=== PATIENT | male | born 1990 | race Caucasian/White ===

== ENCOUNTER 2018-07-19 04:47 | Inpatient (IN) | END 2018-09-10 17:06 | DRG 870 ==

== ENCOUNTER 2018-09-23 12:16 | Inpatient (IN) | payer OTHER ==
[~2018-09-23] VITALS: Ht 167.6 cm; Wt 72.7 kg
[~2018-09-23 12:16] MED LIST: ACET650S25 PO; ASC500 PO; HYDR2TAB36 PO; LORA0.5T PO; MEGE400O4 GTB; MORP30TA3 PO; OXYC-431 PO; Pending Collagenase Order XX; VIT5OINT2 TOP; ZINC220C5 PO
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
[2018-09-23] MEDS ORDERED: HYDROmorphONE 0.5 MG/0.5 ML SYG IV STA ×2 (12:53→18:13)
[2018-09-23] MEDS ORDERED: LACTINEXG GTB (14:21)
[2018-09-23] MEDS ORDERED: FAMO-96 GTB (14:21)
[2018-09-23] MEDS ORDERED: ENOX40DI14 SC (14:21)
[2018-09-23] MEDS ORDERED: MEGE40TA GTB (14:22)
[2018-09-23] MEDS ORDERED: MIDO10TA GTB (14:22)
[2018-09-23] MEDS ORDERED: ONDA4TAB13 GTB (14:23)
[2018-09-23] MEDS ORDERED: LORA1TAB GTB (14:23)
[2018-09-23] MEDS ORDERED: PIPER-TAZO 3.375 GM IV (PMX) 100 ML IVPB ONE (15:30)
[2018-09-23] MEDS ORDERED: ASPIRIN 81 MG TAB PO ONE (15:30)
[2018-09-23] MEDS ORDERED: LEVOFLOXACIN 750MG/D5W (PMX) 150 ML IVPB ONE (18:00)
[2018-09-23] MEDS ORDERED: VANCOMYCIN 1 GM (PMX) 250 ML IVPB SCH (18:00)
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
[2018-09-23 19:48] VITALS: PULSE 96
[2018-09-23 20:00] VITALS: PULSE 85
[2018-09-23 20:15] VITALS: RESP 16
[2018-09-23 20:27] VITALS: BP 110/60; PULSE 74; RESP 19
[2018-09-23] MEDS: ALBUTEROL/IPRATROPIUM (NEB) 3 ML AMP HHN SCH (20:32)
[2018-09-23] MEDS: HYDROmorphONE 0.5 MG/0.5 ML SYG IV PRN (21:29)
[2018-09-23] MEDS: FAMOTIDINE 20 MG TAB GTB SCH (21:30)
[2018-09-23 22:00] VITALS: Ht 167.6 cm; Wt 72.7 kg
[2018-09-23 22:37] VITALS: RESP 21
[2018-09-23 23:43] VITALS: BP 119/70; PULSE 76; RESP 19
[2018-09-24] VITALS (20 sets, daily range): BP systolic 83–119; BP diastolic 46–68; PULSE 70–89; RESP 14–23
[2018-09-24] MEDS: HYDROmorphONE 0.5 MG/0.5 ML SYG IV PRN ×3 (01:25→09:35)
[2018-09-24] MEDS: HYDROCODONE/APAP (5/325) TAB PO PRN ×3 (07:46→18:46)
[2018-09-24] MEDS: ALBUTEROL/IPRATROPIUM (NEB) 3 ML AMP HHN SCH ×3 (08:00→19:48)
[2018-09-24] MEDS: LORAZEPAM 1 MG TAB GTB PRN ×2 (09:36→20:13)
[2018-09-24] MEDS: ENOXAPARIN 40 MG/0.4 ML SYG SC SCH (09:53)
[2018-09-24] MEDS ORDERED: VANCOMYCIN IV PER PHARMACY XX SCH (10:00)
[2018-09-24] MEDS ORDERED: VANCOMYCIN 1 GM 250 ML IVPB SCH (11:00)
[2018-09-24] MEDS ORDERED: HYDROmorphONE 1 MG/ML SYG ONE (13:34)
[2018-09-24] MEDS: CEFEPIME 1GM/50 ML (PMX) 50 ML IVPB SCH ×2 (13:36→20:13)
[2018-09-24] MEDS: HYDROmorphONE 1 MG/ML SYG IV PRN ×3 (13:37→21:48)
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
--- NOTE | 2018-09-24 17:07 | CONS ---
Date/Time of Note Date/Time of Note DATE: 09/24/18 TIME: 17:02 Consult Date/Type/Reason Admit Date Sep 23, 2018 at 18:14 Type of Consult Psych Reason for Consult Depression Subjective Patient is a 28-year-old male who is quadriplegic and trach/vent dependent, HIV and seizure, who is currently on the telemetry unit . On a face to face evaluation, patient reports feeling hopeless and helpless, complained of insomnia. He however denies suicidal ideation and contracted for safety. Explained risks and benefits of Remeron for him and patient agreed to take Remeron. Objective Patient Appearance: Appropriate dress, Well Groomed Mood or Affect: Depressed Thought Process: Intact Hallucination Type: None Delusion Description: Not Present Assessment/Plan Recommendations Remeron 50 mg at bedtime GENE KASPER NP Sep 24, 2018 17:07
[2018-09-24] MEDS: VANCOMYCIN 1 GM 250 ML IVPB SCH (17:34)
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
[2018-09-24] MEDS: FAMOTIDINE 20 MG TAB GTB SCH (20:13)
[2018-09-25] VITALS (23 sets, daily range): BP systolic 92–128; BP diastolic 52–69; PULSE 71–103; RESP 14–74
[2018-09-25] MEDS: HYDROCODONE/APAP (5/325) TAB PO PRN ×5 (00:10→20:02)
[2018-09-25] MEDS: VANCOMYCIN 1 GM 250 ML IVPB SCH ×3 (00:10→17:00)
[2018-09-25] MEDS: HYDROmorphONE 1 MG/ML SYG IV PRN ×6 (01:44→22:03)
[2018-09-25] MEDS: LORAZEPAM 1 MG TAB GTB PRN ×3 (02:23→21:23)
[2018-09-25] MEDS: ACETAMINOPHEN 325 MG TAB PO PRN ×2 (05:38→16:21)
[2018-09-25] MEDS: CEFEPIME 1GM/50 ML (PMX) 50 ML IVPB SCH ×2 (09:37→21:23)
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
[2018-09-25] MEDS: ENOXAPARIN 40 MG/0.4 ML SYG SC SCH (10:39)
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
[2018-09-25] MEDS ORDERED: ALTEPLASE (CATHFLO) 2 MG INJ CATHETER ONE (16:00)
[2018-09-25] MEDS: IPRATROPIUM (NEB) 0.5 MG/2.5 ML AMP INH SCH ×3 (16:00→20:52)
[2018-09-25] MEDS ORDERED: ALBUTEROL HFA 8 GM INHALER INH SCH (16:00)
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
[2018-09-25] MEDS ORDERED: LORAZEPAM 2 MG INJ IV ONE (16:30)
[2018-09-25] MEDS: ALBUTEROL HFA 8 GM INHALER INH SCH (20:00)
[2018-09-25] MEDS: FAMOTIDINE 20 MG TAB GTB SCH (21:23)
[2018-09-26] VITALS (21 sets, daily range): BP systolic 84–116; BP diastolic 47–60; PULSE 55–89; RESP 14–18
[2018-09-26] MEDS: VANCOMYCIN 1 GM 250 ML IVPB SCH ×3 (00:09→17:28)
[2018-09-26] MEDS: HYDROCODONE/APAP (5/325) TAB PO PRN ×6 (00:09→21:43)
[2018-09-26] MEDS: HYDROmorphONE 1 MG/ML SYG IV PRN ×6 (02:01→22:42)
[2018-09-26] MEDS: LORAZEPAM 1 MG TAB GTB PRN ×2 (09:19→19:38)
[2018-09-26] MEDS: CEFEPIME 1GM/50 ML (PMX) 50 ML IVPB SCH ×2 (09:20→20:18)
[2018-09-26] MEDS: ENOXAPARIN 40 MG/0.4 ML SYG SC SCH (09:26)
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
[2018-09-26] MEDS: ALBUTEROL HFA 8 GM INHALER INH SCH ×4 (09:39→22:55)
[2018-09-26] MEDS: ACETAMINOPHEN 325 MG TAB PO PRN (12:32)
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
[2018-09-26] MEDS: FAMOTIDINE 20 MG TAB GTB SCH (20:18)
[2018-09-27] VITALS (22 sets, daily range): BP systolic 101–131; BP diastolic 51–78; PULSE 65–96; RESP 14–22
[2018-09-27] MEDS: ACETAMINOPHEN 325 MG TAB PO PRN ×2 (00:31→13:13)
[2018-09-27] MEDS: VANCOMYCIN 1.25 GM in SOD CHLORIDE 0.9% 250 ML IVPB SCH ×3 (00:33→16:41)
[2018-09-27] MEDS: HYDROCODONE/APAP (5/325) TAB PO PRN ×5 (01:42→20:35)
[2018-09-27] MEDS: LORAZEPAM 1 MG TAB GTB PRN ×3 (01:48→22:36)
[2018-09-27] MEDS: HYDROmorphONE 1 MG/ML SYG IV PRN ×6 (02:53→22:35)
[2018-09-27] MEDS: IPRATROPIUM (NEB) 0.5 MG/2.5 ML AMP INH SCH ×5 (07:09→20:00)
[2018-09-27] MEDS: CEFEPIME 1GM/50 ML (PMX) 50 ML IVPB SCH ×2 (08:05→20:35)
[2018-09-27] MEDS: ENOXAPARIN 40 MG/0.4 ML SYG SC SCH (08:07)
[2018-09-27] MEDS: ALBUTEROL HFA 8 GM INHALER INH SCH ×3 (08:50→19:51)
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
[2018-09-27] MEDS: ONDANSETRON 4 MG INJ IV PRN (16:26)
[2018-09-27] MEDS: FAMOTIDINE 20 MG TAB GTB SCH (22:36)
[2018-09-28] VITALS (23 sets, daily range): BP systolic 89–116; BP diastolic 51–67; PULSE 73–111; RESP 14–24
[2018-09-28] MEDS: VANCOMYCIN 1.25 GM in SOD CHLORIDE 0.9% 250 ML IVPB SCH (00:07)
[2018-09-28] MEDS: IPRATROPIUM (NEB) 0.5 MG/2.5 ML AMP INH SCH ×4 (02:00→19:27)
[2018-09-28] MEDS: HYDROmorphONE 1 MG/ML SYG IV PRN ×6 (02:33→23:47)
[2018-09-28] MEDS: LORAZEPAM 1 MG TAB GTB PRN ×2 (04:11→23:51)
[2018-09-28] MEDS: HYDROCODONE/APAP (5/325) TAB PO PRN ×4 (04:11→17:23)
[2018-09-28] MEDS: ALBUTEROL HFA 8 GM INHALER INH PRN ×2 (04:28→23:20)
[2018-09-28] MEDS: CEFEPIME 1GM/50 ML (PMX) 50 ML IVPB SCH ×2 (08:43→23:40)
[2018-09-28] MEDS: ENOXAPARIN 40 MG/0.4 ML SYG SC SCH (08:55)
[2018-09-28] MEDS: ALBUTEROL HFA 8 GM INHALER INH SCH ×3 (09:04→19:26)
[2018-09-28] MEDS ORDERED: VANCOMYCIN 1 GM 250 ML IVPB SCH ×2 (10:00→11:00)
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
[2018-09-28] MEDS: ONDANSETRON 4 MG INJ IV PRN ×3 (10:54→18:43)
[2018-09-28] MEDS: VANCOMYCIN 1.5 GM in SOD CHLORIDE 0.9% 250 ML IVPB SCH (12:27)
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
[2018-09-28] MEDS: ACETAMINOPHEN 325 MG TAB PO PRN (23:41)
[2018-09-28] MEDS: FAMOTIDINE 20 MG TAB GTB SCH (23:41)
[2018-09-29] VITALS (25 sets, daily range): BP systolic 86–107; BP diastolic 45–56; PULSE 72–110; RESP 2–22
[2018-09-29] MEDS: LORAZEPAM 1 MG TAB GTB PRN ×2 (00:05→13:06)
[2018-09-29] MEDS: VANCOMYCIN 1.5 GM in SOD CHLORIDE 0.9% 250 ML IVPB SCH ×3 (00:06→23:31)
[2018-09-29] MEDS: IPRATROPIUM (NEB) 0.5 MG/2.5 ML AMP INH SCH ×3 (01:31→14:00)
[2018-09-29] MEDS: HYDROCODONE/APAP (5/325) TAB PO PRN ×4 (03:01→18:36)
[2018-09-29] MEDS: HYDROmorphONE 1 MG/ML SYG IV PRN ×6 (03:46→23:58)
[2018-09-29] MEDS: ALBUTEROL HFA 8 GM INHALER INH SCH ×5 (07:15→20:01)
[2018-09-29] MEDS: ONDANSETRON 4 MG INJ IV PRN ×3 (08:59→18:36)
[2018-09-29] MEDS: CEFEPIME 1GM/50 ML (PMX) 50 ML IVPB SCH ×2 (09:04→21:32)
[2018-09-29] MEDS: ENOXAPARIN 40 MG/0.4 ML SYG SC SCH (09:15)
[2018-09-29] MEDS ORDERED: SOD CHLORIDE 0.9% 250 ML IV* ONE (14:25)
--- NOTE | 2018-09-29 14:56 | CONS ---
Date/Time of Note Date/Time of Note DATE: 09/29/18 TIME: 14:55 Consult Date/Type/Reason Admit Date/Time Sep 23, 2018 at 18:14 Initial Consult Date 09/25/18 Type of Consultation: Pulmonary ICU Subjective Patient appears comfortable this morning no respiratory distress Objective Vital Signs Date Time Temp Pulse Resp B/P (MAP) Pulse Ox O2 Delivery O2 Flow Rate FiO2 09/29/18 13:00 76 16 100 30 09/29/18 11:04 98.7 100/51 (67) 09/28/18 07:27 Mechanical Ventilator Intake and Output 09/28/18 09/28/18 09/29/18 14:59 22:59 06:59 Intake Total 400 ml 500 ml Output Total 1100 ml 900 ml Balance -700 ml -400 ml Exam GENERAL: Thin young gentleman on mechanical ventilation via tracheostomy multiple tattoos VITAL SIGNS: per chart NECK: Supple. No JVD or lymphadenopathy. CARDIAC EXAM: S1, S2. No added sounds or murmurs. CHEST: clear bilaterally, No added sounds, rales or wheezes ABDOMEN: Soft, nontender. No guarding or rebound. EXTREMITIES: No cyanosis, clubbing or edema. NEUROLOGIC: Generalized weakness. No focal deficits. Results/Medications Result Diagram: 09/29/18 0533 09/29/18 0533 Results 24 hrs Laboratory Tests Test 09/29/18 05:33 White Blood Count 10.1 Red Blood Count 2.39 L Hemoglobin 7.1 L Hematocrit 22.5 L Mean Corpuscular Volume 94.1 Mean Corpuscular Hemoglobin 29.7 Mean Corpuscular Hemoglobin Concent 31.6 L Red Cell Distribution Width 18.3 H Platelet Count 508 H Mean Platelet Volume 8.8 Immature Granulocytes % 0.900 H Neutrophils % 74.9 Lymphocytes % 13.9 L Monocytes % 6.1 Eosinophils % 3.0 Basophils % 1.2 Nucleated Red Blood Cells % 0.0 Immature Granulocytes # 0.090 H Neutrophils # 7.5 Lymphocytes # 1.4 Monocytes # 0.6 Eosinophils # 0.3 Basophils # 0.1 Nucleated Red Blood Cells # 0.0 Sodium Level 139 Potassium Level 4.2 Chloride Level 104 Carbon Dioxide Level 30 Anion Gap 5 Blood Urea Nitrogen 15 Creatinine < 0.15 L Est Glomerular Filtrat Rate mL/min > 60 Glucose Level 102 Calcium Level 8.3 L Medications Current Medications Enoxaparin Sodium (Lovenox) 40 mg DAILY SC Last administered on 09/29/18 09: 15; Admin Dose 40 MG; Start 09/24/18 at 09:00 Famotidine (Pepcid) 20 mg QHS GTB Last administered on 09/28/18 23:41; Admin Dose 20 MG; Start 09/23/18 at 21:00 Lorazepam (Ativan) 2 mg Q6 PRN GTB ANXIETY Last administered on 09/29/18 13: 06; Admin Dose 2 MG; Start 09/23/18 at 20:00 Acetaminophen/ Hydrocodone Bitart ([place] (5/325)) 1 tab Q4H PRN PO MODERATE PAIN LEVEL 4-6 Last administered on 09/29/18 13:06; Admin Dose 1 TAB; Start 09/23/18 at 20:30 Acetaminophen (Tylenol Tab) 650 mg Q4H PRN PO MILD PAIN(1-3)OR ELEVATED TEMP Last administered on 09/28/18 23:41; Admin Dose 650 MG; Start 09/23/18 at 20: 30 Vancomycin HCl (Vanco Iv Per Pharmacy) VANCOMYCIN PER PHARMACY PER PROTOCOL XX ; Start 09/24/18 at 10:00 Cefepime HCl 50 ml @ 100 mls/hr Q12 IVPB Last administered on 09/29/18 09:04 ; Admin Dose 100 MLS/HR; Start 09/24/18 at 10:00 Hydromorphone HCl (Dilaudid) 1 mg Q4H PRN IV SEVERE PAIN LEVEL 7-10 Last administered on 09/29/18 11:46; Admin Dose 1 MG; Start 09/24/18 at 16:30 Ipratropium [place] (Atrovent 0.02% (Neb)) 0.5 mg Q6H RESP THERAPY INH ; Start 09/25/18 at 16:00 Albuterol (Ventolin Hfa) 4 puff Q6HWA RESP THERAPY INH Last administered on 12:50; Admin Dose 4 PUFF; Start 09/25/18 at 20:00 Ondansetron HCl (Zofran Inj) 4 mg Q4H PRN IV NAUSEA AND/OR VOMITING Last administered on 09/29/18 13:06; Admin Dose 4 MG; Start 09/27/18 at 14:00 Albuterol (Ventolin Hfa) 2 puff Q4H RESP THERAPY PRN INH SHORTNESS OF BREATH Last administered on 09/28/18at 23:20; Admin Dose 2 PUFF; Start 09/27/18 at 20: 30 Vancomycin HCl 1.5 gm/Sodium Chloride 250 ml @ 83.333 mls/ hr Q12H IVPB Last administered on 09/29/18at 11:44; Admin Dose 83.333 MLS/HR; Start 09/28/18 at 11:00 Miscellaneous Information (*Rx Drug Level Order Reminder*) VANCO TROUGH @ 2, 200 ON ... ONCE ONCE XX ; Start 09/29/18 at 22:00; Stop 09/29/18 at 22:01 Assessment/Plan Chief Complaint/Hosp Course Assessment 1. Vent dependent respiratory failure 2. Anemia likely of chronic disease no active GI bleeding 3. History of HIV + 4. Sacral osteomyelitis Plan 1. Continue wound care 2. Continue mechanical ventilation 3. Tube feeding as tolerated 4. Consider transfusion of packed red blood cells or iron replacement DC planning okay from pulmonary standpoint JENNIFER TERRELL MD, [facility] Sep 29, 2018 14:56
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
--- NOTE | 2018-09-29 21:21 | RADRPT ---
Vent Rate: 77 bpm RR Interval: 0 msec NV Interval: 0 msec QRS Duration: 84 msec QT Interval: 354 msec QTC Interval: 400 msec P-R-T [place]: 0 - 73 - 79 degrees Accelerated Junctional rhythm Abnormal ECG Electronically Signed By: Tip Arndt [id number]
[2018-09-29] MEDS: MIRTAZAPINE 15 MG TAB PO SCH (21:32)
[2018-09-29] MEDS: ASCORBIC ACID 500 MG TAB GTB SCH (21:32)
[2018-09-29] MEDS: FAMOTIDINE 20 MG TAB GTB SCH (21:32)
[2018-09-30] VITALS (23 sets, daily range): BP systolic 82–103; BP diastolic 46–56; PULSE 84–112; RESP 16–21
[2018-09-30] MEDS: IPRATROPIUM (NEB) 0.5 MG/2.5 ML AMP INH SCH (01:30)
[2018-09-30] MEDS: HYDROCODONE/APAP (5/325) TAB PO PRN ×5 (01:38→23:10)
[2018-09-30] MEDS: LORAZEPAM 1 MG TAB GTB PRN ×3 (01:38→14:15)
[2018-09-30] MEDS: ALBUTEROL HFA 8 GM INHALER INH SCH ×5 (01:46→20:02)
[2018-09-30] MEDS: ONDANSETRON 4 MG INJ IV PRN ×3 (04:15→18:40)
[2018-09-30] MEDS: HYDROmorphONE 1 MG/ML SYG IV PRN ×3 (04:24→12:30)
[2018-09-30] MEDS: MULTIVITAMINS 30 ML CUP GTB SCH (08:08)
[2018-09-30] MEDS: ZINC SULFATE 220 MG CAP NGT SCH (08:09)
[2018-09-30] MEDS: ASCORBIC ACID 500 MG TAB GTB SCH ×2 (08:09→21:01)
[2018-09-30] MEDS: CEFEPIME 1GM/50 ML (PMX) 50 ML IVPB SCH ×2 (08:09→21:02)
[2018-09-30] MEDS: ENOXAPARIN 40 MG/0.4 ML SYG SC SCH (08:17)
[2018-09-30] MEDS: VANCOMYCIN 1 GM 250 ML IVPB SCH ×2 (11:09→23:13)
--- NOTE | 2018-09-30 11:40 | CONS ---
Date/Time of Note Date/Time of Note DATE: 09/30/18 TIME: 11:38 Assessment/Plan Assessment/Plan Additional Assessment/Plan Ventilator setting; AC of volume 500, PEEP of 0, 35% FiO2. Assessment recommendations; 1. Patient with history of VDR F due to quadriplegia admitted for bilateral pneumonia with significant radiological improvement. 2. HIV positive. 3. History of recent sacral osteomyelitis. 4. Anemia. Consider discharge to jail off antibiotics. Continue other supportive measures. Consultation Date/Type/Reason Admit Date/Time Sep 23, 2018 at 18:14 Initial Consult Date 09/25/18 Type of Consultation: Pulmonary 24 HR Interval Summary Free Text/Dictation Patient's condition has remained stable. General exam; young male, on ventilator via tracheostomy, awake and alert. Currently in no distress. Exam/Review of Systems Vital Signs Vitals Vital Signs Date Temp Pulse Resp B/P (MAP) Pulse Ox O2 O2 Flow FiO2 Time Delivery Rate 09/30/18 98.4 108 20 95/55 (68) 92 11:18 09/30/18 30 09:30 09/28/18 Mechanical 07:27 Ventilator Intake and Output 09/29/18 09/29/18 09/30/18 1515:00 23:00 07:00 IntakeIntake Total 800 ml 150 ml OutputOutput Total 1300 ml 1400 ml BalanceBalance -500 ml -1250 ml Exam H ENT exam; supple neck, no JVD. No lymphadenopathy. Midline trachea. No thyromegaly. Patient has fair dentition. Tracheostomy placed. Insertion site is clean. No neck masses. Chest exam; clear to auscultation. S1-S2 audible, no murmurs. Regular rhythm. Abdomen exam; soft, no organomegaly. Bowel sounds audible. G-tube in place. Extremity exam; no edema. Patient has a flexion contractures. TRACK PRODUCTION ENGINEER exam; patient is awake alert responsive appropriately. Exhibiting stable quadriplegia. Results Result Diagram: 09/29/18 0533 09/29/1833 Results 24 hrs Laboratory Tests Test 09/29/18 22:05 Vancomycin Level Trough 18.4 Medications Medications Current Medications Enoxaparin Sodium (Lovenox) 40 mg DAILY SC Last administered on 09/30/18at 08:17; Admin Dose 40 MG; Start 09/24/18 at 09:00 Famotidine (Pepcid) 20 mg QHS GTB Last administered on 09/29/18 21:32; Admin Dose 20 MG; Start 09/23/18 at 21:00 Lorazepam (Ativan) 2 mg Q6 PRN GTB ANXIETY Last administered on 09/30/18 08:08; Admin Dose 2 MG; Start 09/23/18 at 20:00 Acetaminophen/ Hydrocodone Bitart ([place] (5/325)) 1 tab Q4H PRN PO MODERATE PAIN LEVEL 4-6 Last administered on 09/30/18 11:09; Admin Dose 1 TAB; Start 09/23/18 at 20:30 Acetaminophen (Tylenol Tab) 650 mg Q4H PRN PO MILD PAIN(1-3)OR ELEVATED TEMP Last administered on 09/28/18 23:41; Admin Dose 650 MG; Start 09/23/18 at 20:30 Vancomycin HCl (Vanco Iv Per Pharmacy) VANCOMYCIN PER PHARMACY PER PROTOCOL XX ; Start 09/24/18 at 10:00 Cefepime HCl 50 ml @ 100 mls/hr Q12 IVPB Last administered on 09/30/18 08:09; Admin Dose 100 MLS/HR; Start 09/24/18 at 10:00 Hydromorphone HCl (Dilaudid) 1 mg Q4H PRN IV SEVERE PAIN LEVEL 7-10 Last administered on 09/30/18 08:27; Admin Dose 1 MG; Start 09/24/18 at 16:30 Ipratropium [place] (Atrovent 0.02% (Neb)) 0.5 mg Q6H RESP THERAPY INH Last administered on 09/29/18 14:00; Admin Dose 0.5 MG; Start 09/25/18 at 16:00 Albuterol (Ventolin Hfa) 4 puff Q6HWA RESP THERAPY INH Last administered on 09/30/18 07:19; Admin Dose 4 PUFF; Start 09/25/18 at 20:00 Ondansetron HCl (Zofran Inj) 4 mg Q4H PRN IV NAUSEA AND/OR VOMITING Last administered on 09/30/18 09:58; Admin Dose 4 MG; Start 09/27/18 at 14:00 Albuterol (Ventolin Hfa) 2 puff Q4H RESP THERAPY PRN INH SHORTNESS OF BREATH Last administered on 09/28/18 23:20; Admin Dose 2 PUFF; Start 09/27/18 at 20:30 Ascorbic Acid (Vitamin C) 500 mg BID GTB Last administered on 09/30/18 08:09; Admin Dose 500 MG; Start 09/29/18 at 21:00; Stop 10/13/18 at 20:59 Zinc Sulfate (Zinc Sulfate) 220 mg DAILY NGT Last administered on 09/30/18 08:09; Admin Dose 220 MG; Start 09/30/18 at 09:00; Stop 10/09/18 at 08:59 Multivitamins (Multivitamin) 30 ml DAILY GTB Last administered on 09/30/18 08:08; Admin Dose 30 ML; Start 09/30/18 at 09:00 Mirtazapine (Remeron) 15 mg HS PO Last administered on 09/29/18at 21:32; Admin Dose 15 MG; Start 09/29/18 at 21:00 Vancomycin HCl 250 ml @ 125 mls/hr Q12H IVPB Last administered on 09/30/18at 11:09; Admin Dose 125 MLS/HR; Start 09/30/18 at 11:00 DELMY HARTMAN Sep 30, 2018 11:40
[2018-09-30] MEDS ORDERED: ALTEPLASE (CATHFLO) 2 MG INJ CATHETER ONE ×2 (12:30→14:00)
[2018-09-30] MEDS: ACETAMINOPHEN 325 MG TAB PO PRN (13:35)
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
[2018-09-30] MEDS ORDERED: SOD CHLORIDE 0.9% 250 ML IV ONE (16:00)
[2018-09-30] MEDS: HYDROmorphONE 0.5 MG/0.5 ML SYG IV PRN ×2 (17:04→21:05)
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
[2018-09-30] MEDS: MIRTAZAPINE 15 MG TAB PO SCH (21:01)
[2018-09-30] MEDS: FAMOTIDINE 20 MG TAB GTB SCH (21:05)
[2018-10-01] VITALS (22 sets, daily range): BP systolic 106–132; BP diastolic 60–83; PULSE 63–108; RESP 15–21
[2018-10-01] MEDS: HYDROmorphONE 0.5 MG/0.5 ML SYG IV PRN ×5 (00:58→20:33)
[2018-10-01] MEDS: ALBUTEROL HFA 8 GM INHALER INH PRN ×2 (01:22→16:59)
[2018-10-01] MEDS: ONDANSETRON 4 MG INJ IV PRN ×3 (04:32→17:56)
[2018-10-01] MEDS: LORAZEPAM 1 MG TAB GTB PRN (06:34)
[2018-10-01] MEDS: ALBUTEROL HFA 8 GM INHALER INH SCH ×3 (07:33→20:11)
[2018-10-01] MEDS: ASCORBIC ACID 500 MG TAB GTB SCH ×2 (08:17→20:32)
[2018-10-01] MEDS: ZINC SULFATE 220 MG CAP NGT SCH (08:17)
[2018-10-01] MEDS: MULTIVITAMINS 30 ML CUP GTB SCH (08:17)
[2018-10-01] MEDS: ENOXAPARIN 40 MG/0.4 ML SYG SC SCH (08:32)
[2018-10-01] MEDS: HYDROCODONE/APAP (5/325) TAB PO PRN ×3 (09:28→22:31)
[2018-10-01] MEDS: CEFEPIME 1GM/50 ML (PMX) 50 ML IVPB SCH ×2 (09:37→20:32)
[2018-10-01] MEDS: VANCOMYCIN 1 GM 250 ML IVPB SCH ×2 (10:12→22:31)
[2018-10-01] MEDS: ACETAMINOPHEN 325 MG TAB PO PRN (10:46)
--- NOTE | 2018-10-01 12:27 | CONS ---
Date/Time of Note Date/Time of Note DATE: 10/01/18 TIME: 12:25 Assessment/Plan Assessment/Plan Additional Assessment/Plan Ventilator setting; AC of 14, tidal volume 500, PEEP of 0, 35% FiO2. Assessment recommendations; 1. Patient with history of quadriplegia and VDR F admitted with bilateral pneumonia with significant clinical and radiological improvement. 2. HIV positive. 3. History of recent sacral osteomyelitis. 4. Chronic anemia. Continue current supportive care. Consider stopping antibiotics and discharging the patient back to snf. Consultation Date/Type/Reason Admit Date/Time Sep 23, 2018 at 18:14 Initial Consult Date 09/25/18 Type of Consultation: Pulmonary 24 HR Interval Summary Free Text/Dictation Patient's condition is stable. Remains awake and alert. Has remained hemody namically stable. General exam; young male, on ventilator via tracheostomy, currently in no distress. Exam/Review of Systems Vital Signs Vitals Vital Signs Date Temp Pulse Resp B/P (MAP) Pulse Ox O2 O2 Flow FiO2 Time Delivery Rate 10/01/18 98.6 77 18 106/60 100 Mechanical 11:55 (75) Ventilator 10/01/18 30 05:23 Intake and Output 09/30/18 09/30/18 10/01/18 1414:59 22:59 06:59 IntakeIntake Total 50 ml 910 ml 460 ml OutputOutput Total 350 ml 1100 ml BalanceBalance 50 ml 560 ml -640 ml Exam H ENT exam; supple neck, no JVD. No lymphadenopathy. Midline trachea. No thyromegaly. Patient has fair dentition. Tracheostomy in place. Chest exam; clear to auscultation. S1-S2 audible, no murmurs. Regular rhythm. Abdomen exam; soft, G-tube in place. No organomegaly. Scaphoid. Bowel sounds audible. Extremity exam; no peripheral edema or clubbing. Patient has a flexion contractures. SLASH TRIMMER exam; patient is awake alert responsive exhibiting stable quadriplegia. Results Result Diagram: 10/01/18 0500 10/01/18 0500 Results 24 hrs Laboratory Tests Test 10/01/18 05:00 White Blood Count 11.5 #H Red Blood Count 3.05 L Hemoglobin 9.1 L Hematocrit 28.9 L Mean Corpuscular Volume 94.8 Mean Corpuscular Hemoglobin 29.8 Mean Corpuscular Hemoglobin Concent 31.5 L Red Cell Distribution Width 18.4 H Platelet Count 442 H Mean Platelet Volume 8.5 Immature Granulocytes % 0.600 H Neutrophils % 79.2 H Lymphocytes % 10.2 L Monocytes % 5.6 Eosinophils % 3.5 Basophils % 0.9 Nucleated Red Blood Cells % 0.0 Immature Granulocytes # 0.070 H Neutrophils # 9.1 H Lymphocytes # 1.2 Monocytes # 0.7 Eosinophils # 0.4 Basophils # 0.1 Nucleated Red Blood Cells # 0.0 Sodium Level 143 Potassium Level 3.7 Chloride Level 108 Carbon Dioxide Level 30 Anion Gap 5 Blood Urea Nitrogen 13 Creatinine 0.18 L Est Glomerular Filtrat Rate mL/min > 60 Glucose Level 95 Calcium Level 8.6 Medications Medications Current Medications Enoxaparin Sodium (Lovenox) 40 mg DAILY SC Last administered on 10/01/18 08:32; Admin Dose 40 MG; Start 09/24/18 at 09:00 Famotidine (Pepcid) 20 mg QHS GTB Last administered on 09/30/18 21:05; Admin Dose 20 MG; Start 09/23/18 at 21:00 Lorazepam (Ativan) 2 mg Q6 PRN GTB ANXIETY Last administered on 10/01/18 06: 34; Admin Dose 2 MG; Start 09/23/18 at 20:00 Acetaminophen/ Hydrocodone Bitart ([place] (5/325)) 1 tab Q4H PRN PO MODERATE PAIN LEVEL 4-6 Last administered on 10/01/18 09:28; Admin Dose 1 TAB; Start 09/23/18 at 20:30 Acetaminophen (Tylenol Tab) 650 mg Q4H PRN PO MILD PAIN(1-3)OR ELEVATED TEMP [place] [facility] administered on 10/01/18 10:46; Admin Dose 650 MG; Start 09/23/18 at 20:30 Vancomycin HCl (Vanco Iv Per Pharmacy) VANCOMYCIN PER PHARMACY PER PROTOCOL XX ; Start 09/24/18 at 10:00 Cefepime HCl 50 ml @ 100 mls/hr Q12 IVPB Last administered on 10/01/18 09:37; Admin Dose 100 MLS/HR; Start 09/24/18 at 10:00 Albuterol (Ventolin Hfa) 4 puff Q6HWA RESP THERAPY INH Last administered on 10/01/18 07:33; Admin Dose 4 PUFF; Start 09/25/18 at 20:00 Ondansetron HCl (Zofran Inj) 4 mg Q4H PRN IV NAUSEA AND/OR VOMITING Last administered on 10/01/18 04:32; Admin Dose 4 MG; Start 09/27/18 at 14:00 Albuterol (Ventolin Hfa) 2 puff Q4H RESP THERAPY PRN INH SHORTNESS OF BREATH Last administered on 10/01/18 01:22; Admin Dose 2 PUFF; Start 09/27/18 at 20:30 Ascorbic Acid (Vitamin C) 500 mg BID GTB Last administered on 10/01/18 08:17; Admin Dose 500 MG; Start 09/29/18 at 21:00; Stop 10/13/18 at 20:59 Zinc Sulfate (Zinc Sulfate) 220 mg DAILY NGT Last administered on 10/01/18 08:17; Admin Dose 220 MG; Start 09/30/18 at 09:00; Stop 10/09/18 at 08:59 Multivitamins (Multivitamin) 30 ml DAILY GTB Last administered on 10/01/18 08:17; Admin Dose 30 ML; Start 09/30/18 at 09:00 Mirtazapine (Remeron) 15 mg HS PO Last administered on 09/30/18 21:01; Admin Dose 15 MG; Start 09/29/18 at 21:00 Vancomycin HCl 250 ml @ 125 mls/hr Q12H IVPB Last administered on 10/01/18 10:12; Admin Dose 125 MLS/HR; Start 09/30/18 at 11:00 Hydromorphone HCl (Dilaudid) 0.5 mg Q4H PRN IV SEVERE PAIN LEVEL 7-10 Last administered on 10/01/18 08:41; Admin Dose 0.5 MG; Start 09/30/18 at 16:30 EDLMY HARTMAN Oct 01, 2018 12:27
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
[2018-10-01] MEDS: MIRTAZAPINE 15 MG TAB PO SCH (20:32)
[2018-10-01] MEDS: FAMOTIDINE 20 MG TAB GTB SCH (20:32)
[2018-10-02] VITALS (23 sets, daily range): BP systolic 117–130; BP diastolic 60–92; PULSE 60–105; RESP 16–18
[2018-10-02] MEDS: HYDROmorphONE 0.5 MG/0.5 ML SYG IV PRN ×7 (00:34→21:42)
[2018-10-02] MEDS: ALBUTEROL HFA 8 GM INHALER INH PRN (01:30)
[2018-10-02] MEDS: ONDANSETRON 4 MG INJ IV PRN ×2 (03:40→18:03)
[2018-10-02] MEDS: CEFEPIME 1GM/50 ML (PMX) 50 ML IVPB SCH (08:30)
[2018-10-02] MEDS: ZINC SULFATE 220 MG CAP NGT SCH (08:31)
[2018-10-02] MEDS: MULTIVITAMINS 30 ML CUP GTB SCH (08:31)
[2018-10-02] MEDS: ENOXAPARIN 40 MG/0.4 ML SYG SC SCH (08:32)
[2018-10-02] MEDS: ASCORBIC ACID 500 MG TAB GTB SCH ×2 (08:32→21:39)
[2018-10-02] MEDS: ALBUTEROL HFA 8 GM INHALER INH SCH ×3 (08:40→19:43)
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
[2018-10-02] MEDS: VANCOMYCIN 1 GM 250 ML IVPB SCH (11:20)
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
[2018-10-02] MEDS: HYDROCODONE/APAP (5/325) TAB PO PRN ×2 (13:03→22:42)
[2018-10-02] MEDS: LORAZEPAM 1 MG TAB GTB PRN ×2 (14:34→22:37)
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
[2018-10-02] MEDS: FAMOTIDINE 20 MG TAB GTB SCH (21:39)
[2018-10-02] MEDS: MIRTAZAPINE 15 MG TAB PO SCH (21:39)
[2018-10-03] VITALS (23 sets, daily range): BP systolic 90–125; BP diastolic 54–91; PULSE 67–107; RESP 15–22
[2018-10-03] MEDS: ALBUTEROL HFA 8 GM INHALER INH PRN ×3 (01:54→17:39)
[2018-10-03] MEDS: HYDROmorphONE 0.5 MG/0.5 ML SYG IV PRN ×2 (02:06→06:11)
[2018-10-03] MEDS: ALBUTEROL HFA 8 GM INHALER INH SCH ×3 (08:05→19:34)
[2018-10-03] MEDS: HYDROCODONE/APAP (5/325) TAB PO PRN ×4 (08:46→21:48)
[2018-10-03] MEDS: ZINC SULFATE 220 MG CAP NGT SCH (08:46)
[2018-10-03] MEDS: MULTIVITAMINS 30 ML CUP GTB SCH (08:46)
[2018-10-03] MEDS: ASCORBIC ACID 500 MG TAB GTB SCH ×2 (08:47→21:14)
[2018-10-03] MEDS: ENOXAPARIN 40 MG/0.4 ML SYG SC SCH (08:48)
[2018-10-03] MEDS: HYDROmorphONE 2 MG TAB PO PRN ×3 (10:20→18:48)
--- NOTE | 2018-10-03 11:03 | CONS ---
Date/Time of Note Date/Time of Note DATE: 10/03/18 TIME: 11:02 Assessment/Plan Assessment/Plan Additional Assessment/Plan Ventilator setting; AC of 14, tidal volume 500, PEEP of 0, 35% FiO2. Assessment recommendations; 1. Patient with history of quadriplegia and VDR F admitted with bilateral pneumonia with marked interval clinical and radiological improvement. Off antibiotics. 2. History of being HIV positive. 3. Status post treatment of sacral osteomyelitis. Continue current supportive care. Consider discharge. Consultation Date/Type/Reason Admit Date/Time Sep 23, 2018 at 18:14 Initial Consult Date 09/25/18 Type of Consultation: Pulmonary 24 HR Interval Summary Free Text/Dictation Patient's condition is stable. Remains awake and alert. Has remained hemodynamically stable. General exam; young male, on ventilator via tracheostomy, awake and alert. Currently in no distress. Exam/Review of Systems Vital Signs Vitals Vital Signs Date Temp Pulse Resp B/P (MAP) Pulse Ox O2 O2 Flow FiO2 Time Delivery Rate 10/03/18 94 08:45 10/03/18 98.4 18 106/81 100 08:12 (89) 10/03/18 30 05:05 10/01/18 Mechanical 15:52 Ventilator Intake and Output 10/02/18 10/02/18 10/03/18 1515:00 23:00 07:00 IntakeIntake Total 50 ml 600 ml 450 ml OutputOutput Total 1800 ml 1650 ml BalanceBalance 50 ml -1200 ml -1200 ml Exam HEENT exam; supple neck, no JVD. No lymphadenopathy. Midline trachea. No thyromegaly. Tracheostomy in place. Insertion site is clean. Patient has fair dentition. Chest exam; clear to auscultation. S1-S2 audible, no murmurs. Regular rhythm. Abdomen exam; soft, nontender. Scaphoid. No organomegaly. G-tube in place. Bowel sounds audible. Extremity exam; no edema clubbing. Patient has a flexion contractures in all 4 extremities. SHROUDMAN exam; patient has stable quadriplegia. Results Result Diagram: 10/03/18 0546 10/03/18 0546 Results 24 hrs Laboratory Tests Test 10/03/18 05:46 White Blood Count 8.2 Red Blood Count 3.35 L Hemoglobin 9.8 L Hematocrit 31.4 L Mean Corpuscular Volume 93.7 Mean Corpuscular Hemoglobin 29.3 Mean Corpuscular Hemoglobin Concent 31.2 L Red Cell Distribution Width 17.8 H Platelet Count 473 H Mean Platelet Volume 8.7 Immature Granulocytes % 0.600 H Neutrophils % 73.7 Lymphocytes % 13.5 L Monocytes % 6.2 Eosinophils % 4.9 Basophils % 1.1 Nucleated Red Blood Cells % 0.0 Immature Granulocytes # 0.050 H Neutrophils # 6.1 Lymphocytes # 1.1 Monocytes # 0.5 Eosinophils # 0.4 Basophils # 0.1 Nucleated Red Blood Cells # 0.0 Sodium Level 141 Potassium Level 3.7 Chloride Level 103 Carbon Dioxide Level 30 Anion Gap 8 Blood Urea Nitrogen 13 Creatinine 0.18 L Est Glomerular Filtrat Rate mL/min > 60 Glucose Level 93 Calcium Level 9.0 Medications Medications Current Medications Enoxaparin Sodium (Lovenox) 40 mg DAILY SC Last administered on 10/03/18 08:48; Admin Dose 40 MG; Start 09/24/18 at 09:00 Famotidine (Pepcid) 20 mg QHS GTB Last administered on 10/02/18 21:39; Admin Dose 20 MG; Start 09/23/18 at 21:00 Lorazepam (Ativan) 2 mg Q6 PRN GTB ANXIETY Last administered on 10/02/18 22:37; Admin Dose 2 MG; Start 09/23/18 at 20:00 Acetaminophen/ Hydrocodone Bitart ([place] (5/325)) 1 tab Q4H PRN PO MODERATE PAIN LEVEL 4-6 Last administered on 10/03/18 08:46; Admin Dose 1 TAB; Start 09/23/18 at 20:30 Acetaminophen (Tylenol Tab) 650 mg Q4H PRN PO MILD PAIN(1-3)OR ELEVATED TEMP Last administered on 10/01/18 10:46; Admin Dose 650 MG; Start 09/23/18 at 20:30 Albuterol (Ventolin Hfa) 4 puff Q6HWA RESP THERAPY INH Last administered on 10/03/18 08:05; Admin Dose 4 PUFF; Start 09/25/18 at 20:00 Ondansetron HCl (Zofran Inj) 4 mg Q4H PRN IV NAUSEA AND/OR VOMITING Last administered on 10/02/18 18:03; Admin Dose 4 MG; Start 09/27/18 at 14:00 Albuterol (Ventolin Hfa) 2 puff Q4H RESP THERAPY PRN INH SHORTNESS OF BREATH Last administered on 10/03/18at 01:54; Admin Dose 2 PUFF; Start 09/27/18 at 20:30 Ascorbic Acid (Vitamin C) 500 mg BID GTB Last administered on 10/03/18at 08:47; Admin Dose 500 MG; Start 09/29/18 at 21:00; Stop 10/13/18 at 20:59 Zinc Sulfate (Zinc Sulfate) 220 mg DAILY NGT Last administered on 10/03/18at 08:46; Admin Dose 220 MG; Start 09/30/18 at 09:00; Stop 10/09/18 at 08:59 Multivitamins (Multivitamin) 30 ml DAILY GTB Last administered on 10/03/18at 08:46; Admin Dose 30 ML; Start 09/30/18 at 09:00 Mirtazapine (Remeron) 15 mg HS PO Last administered on 10/02/18at 21:39; Admin Dose 15 MG; Start 09/29/18 at 21:00 Hydromorphone HCl (Dilaudid) 2 mg Q4H PRN PO SEVERE PAIN LEVEL 7-10 Last administered on 10/03/18at 10:20; Admin Dose 2 MG; Start 10/03/18 at 09:30 DELMY HARTMAN Oct 03, 2018 11:03
[2018-10-03] MEDS: LORAZEPAM 1 MG TAB GTB PRN (12:45)
[2018-10-03] MEDS: ONDANSETRON 4 MG INJ IV PRN ×2 (12:45→18:53)
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
[2018-10-03] MEDS: FAMOTIDINE 20 MG TAB GTB SCH (21:14)
[2018-10-03] MEDS: MIRTAZAPINE 15 MG TAB PO SCH (21:14)
[2018-10-04] VITALS (24 sets, daily range): BP systolic 91–127; BP diastolic 52–76; PULSE 77–119; RESP 14–20
[2018-10-04] MEDS: HYDROmorphONE 2 MG TAB PO PRN ×2 (04:05→09:58)
[2018-10-04] MEDS: ALBUTEROL HFA 8 GM INHALER INH PRN ×2 (05:12→23:43)
[2018-10-04] MEDS: LORAZEPAM 1 MG TAB GTB PRN (06:55)
[2018-10-04] MEDS: ONDANSETRON 4 MG INJ IV PRN (06:56)
[2018-10-04] MEDS: ALBUTEROL HFA 8 GM INHALER INH SCH ×4 (07:14→20:54)
[2018-10-04] MEDS: ZINC SULFATE 220 MG CAP NGT SCH (09:58)
[2018-10-04] MEDS: MULTIVITAMINS 30 ML CUP GTB SCH (09:58)
[2018-10-04] MEDS: ASCORBIC ACID 500 MG TAB GTB SCH ×2 (09:58→21:20)
[2018-10-04] MEDS: ENOXAPARIN 40 MG/0.4 ML SYG SC SCH (10:10)
[2018-10-04] MEDS: HYDROCODONE/APAP (5/325) TAB PO PRN ×3 (11:50→21:19)
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
[2018-10-04] MEDS: HYDROmorphONE 0.5 MG/0.5 ML SYG IV PRN ×3 (14:05→22:07)
[2018-10-04] MEDS: FAMOTIDINE 20 MG TAB GTB SCH (21:19)
[2018-10-04] MEDS: MIRTAZAPINE 15 MG TAB PO SCH (21:19)
[2018-10-05] VITALS (24 sets, daily range): BP systolic 112–138; BP diastolic 70–84; PULSE 70–129; RESP 14–19
[2018-10-05] MEDS: ACETAMINOPHEN 325 MG TAB PO PRN (00:35)
[2018-10-05] MEDS: HYDROCODONE/APAP (5/325) TAB PO PRN ×5 (01:23→20:52)
[2018-10-05] MEDS: ALBUTEROL HFA 8 GM INHALER INH PRN ×2 (01:33→04:04)
[2018-10-05] MEDS: HYDROmorphONE 0.5 MG/0.5 ML SYG IV PRN ×6 (01:35→22:10)
[2018-10-05] MEDS: ONDANSETRON 4 MG INJ IV PRN ×3 (06:55→21:09)
[2018-10-05] MEDS: ALBUTEROL HFA 8 GM INHALER INH SCH ×3 (07:22→16:51)
[2018-10-05] MEDS: MULTIVITAMINS 30 ML CUP GTB SCH (08:40)
[2018-10-05] MEDS: ASCORBIC ACID 500 MG TAB GTB SCH ×2 (08:40→20:52)
[2018-10-05] MEDS: ZINC SULFATE 220 MG CAP NGT SCH (08:40)
[2018-10-05] MEDS: ENOXAPARIN 40 MG/0.4 ML SYG SC SCH (08:42)
--- NOTE | 2018-10-05 12:18 | CONS ---
Date/Time of Note Date/Time of Note DATE: 10/05/18 TIME: 12:18 Consult Date/Type/Reason Admit Date/Time Sep 23, 2018 at 18:14 Initial Consult Date 09/25/18 Type of Consultation: Pulmonary ICU Subjective Remains stable, no new events. Objective Vital Signs Date Temp Pulse Resp B/P (MAP) Pulse Ox O2 O2 Flow FiO2 Time Delivery Rate 10/05/18 99.6 79 18 138/82 99 11:34 (100) 10/05/18 35 11:20 10/01/18 Mechanical 15:52 Ventilator Intake and Output 10/04/18 10/04/18 10/05/18 1515:00 23:00 07:00 IntakeIntake Total 600 ml 550 ml OutputOutput Total 800 ml 1200 ml BalanceBalance -200 ml -650 ml Exam GENERAL: Thin gentleman on mechanical ventilation via tracheostomy VITAL SIGNS: per chart NECK: Supple. No JVD or lymphadenopathy. CARDIAC EXAM: S1, S2. No added sounds or murmurs. CHEST: clear bilaterally, No added sounds, rales or wheezes ABDOMEN: Soft, nontender. No guarding or rebound. EXTREMITIES: No cyanosis, clubbing or edema. NEUROLOGIC: Generalized weakness. No focal deficits. Results/Medications Result Diagram: 10/04/1852210/04/18 0525 Medications Current Medications Enoxaparin Sodium (Lovenox) 40 mg DAILY SC Last administered on 10/05/18at 08:42; Admin Dose 40 MG; Start 09/24/18 at 09:00 Famotidine (Pepcid) 20 mg QHS GTB Last administered on 10/04/18at 21:19; Admin Dose 20 MG; Start 09/23/18 at 21:00 Lorazepam (Ativan) 2 mg Q6 PRN GTB ANXIETY Last administered on 10/04/18at 06:55; Admin Dose 2 MG; Start 09/23/18 at 20:00 Acetaminophen/ Hydrocodone Bitart ([place] (5/325)) 1 tab Q4H PRN PO MODERATE PAIN LEVEL 4-6 Last administered on 10/05/18at 08:44; Admin Dose 1 TAB; Start 09/23/18 at 20:30 Acetaminophen (Tylenol Tab) 650 mg Q4H PRN PO MILD PAIN(1-3)OR ELEVATED TEMP Last administered on 10/05/18 00:35; Admin Dose 650 MG; Start 09/23/18 at 20:30 Albuterol (Ventolin Hfa) 4 puff Q6HWA RESP THERAPY INH Last administered on 10/05/18 07:22; Admin Dose 4 PUFF; Start 09/25/18 at 20:00 Ondansetron HCl (Zofran Inj) 4 mg Q4H PRN IV NAUSEA AND/OR VOMITING Last administered on 10/05/18 06:55; Admin Dose 4 MG; Start 09/27/18 at 14:00 Albuterol (Ventolin Hfa) 2 puff Q4H RESP THERAPY PRN INH SHORTNESS OF BREATH Last administered on 10/05/18 04:04; Admin Dose 2 PUFF; Start 09/27/18 at 20:30 Ascorbic Acid (Vitamin C) 500 mg BID GTB Last administered on 10/05/18 08:40; Admin Dose 500 MG; Start 09/29/18 at 21:00; Stop 10/13/18 at 20:59 Zinc Sulfate (Zinc Sulfate) 220 mg DAILY NGT Last administered on 10/05/18 08:40; Admin Dose 220 MG; Start 09/30/18 at 09:00; Stop 10/09/18 at 08:59 Multivitamins (Multivitamin) 30 ml DAILY GTB Last administered on 10/05/18 08:40; Admin Dose 30 ML; Start 09/30/18 at 09:00 Mirtazapine (Remeron) 15 mg HS PO Last administered on 10/04/18 21:19; Admin Dose 15 MG; Start 09/29/18 at 21:00 Hydromorphone HCl (Dilaudid) 0.5 mg Q4H PRN IV SEVERE PAIN LEVEL 7-10 Last administered on 10/05/18 09:46; Admin Dose 0.5 MG; Start 10/04/18 at 12:00 Assessment/Plan Chief Complaint/Hosp Course Assessment 1. Vent dependent respiratory failure 2. Anemia likely of chronic disease no active GI bleeding 3. History of HIV + 4. Sacral osteomyelitis Plan 1. Continue wound care 2. Continue mechanical ventilation 3. Tube feeding as tolerated DC planning okay from pulmonary standpoint JENNIFER TERRELL MD, [facility] Oct 05, 2018 12:18
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
[2018-10-05] MEDS: MIRTAZAPINE 15 MG TAB PO SCH (20:53)
[2018-10-05] MEDS: FAMOTIDINE 20 MG TAB GTB SCH (20:53)
[2018-10-05] MEDS: LORAZEPAM 1 MG TAB GTB PRN (21:09)
[2018-10-06] VITALS (24 sets, daily range): BP systolic 93–129; BP diastolic 50–69; PULSE 70–123; RESP 15–21
[2018-10-06] MEDS: HYDROmorphONE 0.5 MG/0.5 ML SYG IV PRN ×6 (02:31→23:37)
[2018-10-06] MEDS: LORAZEPAM 1 MG TAB GTB PRN ×3 (04:16→23:40)
[2018-10-06] MEDS: ACETAMINOPHEN 325 MG TAB PO PRN ×2 (04:31→23:41)
[2018-10-06] MEDS: HYDROCODONE/APAP (5/325) TAB PO PRN ×4 (04:42→21:36)
[2018-10-06] MEDS: ONDANSETRON 4 MG INJ IV PRN ×3 (04:42→21:33)
[2018-10-06] MEDS: ALBUTEROL HFA 8 GM INHALER INH SCH ×3 (08:00→20:00)
--- NOTE | 2018-10-06 09:22 | CONS ---
Date/Time of Note Date/Time of Note DATE: 10/06/18 TIME: 09:20 Assessment/Plan Assessment/Plan Additional Assessment/Plan Ventilator setting; AC of 18, tidal volume 500, PEEP of 5, 30% FiO2. Assessment and recommendations; 1. Patient with history of quadriplegia and VDR F admitted with bilateral pneumonia with marked overall clinical improvement. Off antibiotics now. 2. History of recent sacral osteomyelitis. Status post treatment. 3. HIV positive. Continue current supportive care. Patient awaiting discharge. Consultation Date/Type/Reason Admit Date/Time Sep 23, 2018 at 18:14 Initial Consult Date 09/25/18 Type of Consultation: Pulmonary 24 HR Interval Summary Free Text/Dictation Patient's condition is stable. Remains awake and alert. Has remained hemodynamically stable. General exam; young male, on ventilator via tracheostomy, currently in no distress. Exam/Review of Systems Vital Signs Vitals Vital Signs Date Temp Pulse Resp B/P (MAP) Pulse Ox O2 O2 Flow FiO2 Time Delivery Rate 10/06/18 108 18 100 30 09:14 10/06/18 98.4 93/50 (64) Trach 07:17 Collar Intake and Output 10/05/18 10/05/18 10/06/18 1515:00 23:00 07:00 IntakeIntake Total 240 ml 360 ml 400 ml OutputOutput Total 900 ml 1000 ml BalanceBalance 240 ml -540 ml -600 ml Exam H ENT exam; supple neck, no JVD. No lymphadenopathy. Midline trachea. No thyromegaly. Tracheostomy placed. Patient has fair dentition. Chest exam; diminished but clear breath sounds. No added sounds. S1-S2 audible , no murmurs. Regular rhythm. Abdomen exam; soft, no organomegaly. G-tube in place. Bowel sounds audible. Extremity exam; no peripheral edema. Patient has a flexion contractures. 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 Results Result Diagram: 10/06/18 0811 10/06/18 0811 Results 24 hrs Laboratory Tests Test 10/06/18 08:11 White Blood Count 13.1 #H Red Blood Count 2.98 L Hemoglobin 8.9 L Hematocrit 28.4 L Mean Corpuscular Volume 95.3 Mean Corpuscular Hemoglobin 29.9 Mean Corpuscular Hemoglobin Concent 31.3 L Red Cell Distribution Width 17.6 H Platelet Count 419 H Mean Platelet Volume 8.7 Immature Granulocytes % 0.600 H Neutrophils % 77.3 H Lymphocytes % 13.4 L Monocytes % 6.0 Eosinophils % 2.0 Basophils % 0.7 Nucleated Red Blood Cells % 0.0 Immature Granulocytes # 0.080 H Neutrophils # 10.1 H Lymphocytes # 1.8 Monocytes # 0.8 Eosinophils # 0.3 Basophils # 0.1 Nucleated Red Blood Cells # 0.0 Sodium Level 139 Potassium Level 3.9 Chloride Level 100 Carbon Dioxide Level 30 Anion Gap 9 Blood Urea Nitrogen 20 Creatinine 0.26 L Est Glomerular Filtrat Rate mL/min > 60 Glucose Level 84 Calcium Level 9.1 Medications Medications Current Medications Enoxaparin Sodium (Lovenox) 40 mg DAILY SC Last administered on 10/05/18 08:42; Admin Dose 40 MG; Start 09/24/18 at 09:00 Famotidine (Pepcid) 20 mg QHS GTB Last administered on 10/05/18 20:53; Admin Dose 20 MG; Start 09/23/18 at 21:00 Lorazepam (Ativan) 2 mg Q6 PRN GTB ANXIETY Last administered on 10/06/18 04:16; Admin Dose 2 MG; Start 09/23/18 at 20:00 Acetaminophen/ Hydrocodone Bitart ([place] (5/325)) 1 tab Q4H PRN PO MODERATE PAIN LEVEL 4-6 Last administered on 10/06/18 04:42; Admin Dose 1 TAB; Start 09/23/18 at 20:30 Acetaminophen (Tylenol Tab) 650 mg Q4H PRN PO MILD PAIN(1-3)OR ELEVATED TEMP Last administered on 10/06/18 04:31; Admin Dose 650 MG; Start 09/23/18 at 20:30 Albuterol (Ventolin Hfa) 4 puff Q6HWA RESP THERAPY INH Last administered on 10/06/18 08:00; Admin Dose 4 PUFF; Start 09/25/18 at 20:00 Ondansetron HCl (Zofran Inj) 4 mg Q4H PRN IV NAUSEA AND/OR VOMITING Last administered on 10/06/18 04:42; Admin Dose 4 MG; Start 09/27/18 at 14:00 Albuterol (Ventolin Hfa) 2 puff Q4H RESP THERAPY PRN INH SHORTNESS OF BREATH Last administered on 10/05/18 04:04; Admin Dose 2 PUFF; Start 09/27/18 at 20:30 Ascorbic Acid (Vitamin C) 500 mg BID GTB Last administered on 10/05/18 20:52; Admin Dose 500 MG; Start 09/29/18 at 21:00; Stop 10/13/18 at 20:59 Zinc Sulfate (Zinc Sulfate) 220 mg DAILY NGT Last administered on 10/05/18 08:40; Admin Dose 220 MG; Start 09/30/18 at 09:00; Stop 10/09/18 at 08:59 Multivitamins (Multivitamin) 30 ml DAILY GTB Last administered on 10/05/18 08:40; Admin Dose 30 ML; Start 09/30/18 at 09:00 Mirtazapine (Remeron) 15 mg HS PO Last administered on 10/05/18 20:53; Admin Dose 15 MG; Start 09/29/18 at 21:00 Hydromorphone HCl (Dilaudid) 0.5 mg Q4H PRN IV SEVERE PAIN LEVEL 7-10 Last administered on 10/06/18 06:51; Admin Dose 0.5 MG; Start 10/04/18 at 12:00 DELMY HARTMAN Oct 06, 2018 09:22
[2018-10-06] MEDS: MULTIVITAMINS 30 ML CUP GTB SCH (09:54)
[2018-10-06] MEDS: ZINC SULFATE 220 MG CAP NGT SCH (09:54)
[2018-10-06] MEDS: ASCORBIC ACID 500 MG TAB GTB SCH ×2 (09:54→21:35)
[2018-10-06] MEDS: ENOXAPARIN 40 MG/0.4 ML SYG SC SCH (09:55)
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
[2018-10-06] MEDS: FAMOTIDINE 20 MG TAB GTB SCH (21:36)
[2018-10-06] MEDS: MIRTAZAPINE 15 MG TAB PO SCH (21:37)
[2018-10-06] MEDS: ALBUTEROL HFA 8 GM INHALER INH PRN (23:52)
[2018-10-07] VITALS (23 sets, daily range): BP systolic 91–114; BP diastolic 59–73; PULSE 98–118; RESP 14–21
[2018-10-07] MEDS: ONDANSETRON 4 MG INJ IV PRN ×4 (03:40→20:10)
[2018-10-07] MEDS: HYDROmorphONE 0.5 MG/0.5 ML SYG IV PRN ×5 (03:40→20:12)
[2018-10-07] MEDS: LORAZEPAM 1 MG TAB GTB PRN (05:49)
[2018-10-07] MEDS: HYDROCODONE/APAP (5/325) TAB PO PRN ×2 (05:49→18:13)
[2018-10-07] MEDS: ALBUTEROL HFA 8 GM INHALER INH SCH ×3 (08:50→19:53)
[2018-10-07] MEDS: MULTIVITAMINS 30 ML CUP GTB SCH (09:23)
[2018-10-07] MEDS: ASCORBIC ACID 500 MG TAB GTB SCH ×2 (09:24→20:15)
[2018-10-07] MEDS: ZINC SULFATE 220 MG CAP NGT SCH (09:24)
--- NOTE | 2018-10-07 09:41 | CONS ---
Date/Time of Note Date/Time of Note DATE: 10/07/18 TIME: 09:38 Assessment/Plan Assessment/Plan Additional Assessment/Plan Ventilator setting; AC of 18, tidal volume 500, PEEP of 5, 30% FiO2. Assessment recommendations; next 1. Patient with history of quadriplegia and VDR F admitted for bilateral pneumonia with marked interval improvement. Off antibiotics. 2. HIV positive. 3. Recent history of sacral osteomyelitis, status post treatment. Continue current supportive care. Patient awaiting discharge. Consultation Date/Type/Reason Admit Date/Time Sep 23, 2018 at 18:14 Initial Consult Date 09/25/18 Type of Consultation: Pulmonary 24 HR Interval Summary Free Text/Dictation Patient's condition is stable. Remains awake and alert. Has remained hemodynamically stable. General exam; young male, on ventilator via tracheostomy, currently no distress. HEENT exam; supple neck, no JVD. Tracheostomy placed. Patient has fair dentition. Chest exam; clear to auscultation. S1-S2 audible, no murmurs. Regular rhythm. Abdomen exam; soft, G-tube in place. Bowel sounds audible. No organomegaly. Extremity exam; no peripheral edema. 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 Exam/Review of Systems Vital Signs Vitals Vital Signs Date Temp Pulse Resp B/P (MAP) Pulse Ox O2 O2 Flow FiO2 Time Delivery Rate 10/07/18 112 21 100 30 09:12 10/07/18 98.0 91/60 (70) 08:08 10/06/18 Trach 15:22 Collar Intake and Output 10/06/18 10/06/18 10/07/18 1414:59 22:59 06:59 IntakeIntake Total 960 ml 250 ml OutputOutput Total 500 ml 950 ml BalanceBalance 460 ml -700 ml Results Result Diagram: 10/07/18 0527 10/07/18 0527 Results 24 hrs Laboratory Tests Test 10/06/18 09:44 10/07/18 05:27 Lab Scanned Report BLOOD TRANSFUSION White Blood Count 11.3 H Red Blood Count 3.10 L Hemoglobin 9.2 L Hematocrit 29.4 L Mean Corpuscular Volume 94.8 Mean Corpuscular Hemoglobin 29.7 Mean Corpuscular Hemoglobin Concent 31.3 L Red Cell Distribution Width 17.2 H Platelet Count 439 H Mean Platelet Volume 8.9 Immature Granulocytes % 0.700 H Neutrophils % 73.1 Lymphocytes % 13.9 L Monocytes % 6.5 Eosinophils % 4.8 Basophils % 1.0 Nucleated Red Blood Cells % 0.0 Immature Granulocytes # 0.080 H Neutrophils # 8.3 H Lymphocytes # 1.6 Monocytes # 0.7 Eosinophils # 0.5 Basophils # 0.1 Nucleated Red Blood Cells # 0.0 Sodium Level 140 Potassium Level 3.5 Chloride Level 102 Carbon Dioxide Level 29 Anion Gap 9 Blood Urea Nitrogen 16 Creatinine 0.18 L Est Glomerular Filtrat Rate mL/min > 60 Glucose Level 90 Calcium Level 8.9 Medications Medications Current Medications Enoxaparin Sodium (Lovenox) 40 mg DAILY SC Last administered on 10/06/18 09:55; Admin Dose 40 MG; Start 09/24/18 at 09:00 Famotidine (Pepcid) 20 mg QHS GTB Last administered on 10/06/18 21:36; Admin Dose 20 MG; Start 09/23/18 at 21:00 Lorazepam (Ativan) 2 mg Q6 PRN GTB ANXIETY Last administered on 10/07/18 05:49; Admin Dose 2 MG; Start 09/23/18 at 20:00 Acetaminophen/ Hydrocodone Bitart ([place] (5/325)) 1 tab Q4H PRN PO MODERATE PAIN LEVEL 4-6 Last administered on 10/07/18 05:49; Admin Dose 1 TAB; Start 09/23/18 at 20:30 Acetaminophen (Tylenol Tab) 650 mg Q4H PRN PO MILD PAIN(1-3)OR ELEVATED TEMP Last administered on 10/06/18 23:41; Admin Dose 650 MG; Start 09/23/18 at 20:30 Albuterol (Ventolin Hfa) 4 puff Q6HWA RESP THERAPY INH Last administered on 10/07/18 08:50; Admin Dose 4 PUFF; Start 09/25/18 at 20:00 Ondansetron HCl (Zofran Inj) 4 mg Q4H PRN IV NAUSEA AND/OR VOMITING Last administered on 10/07/18 09:01; Admin Dose 4 MG; Start 09/27/18 at 14:00 Albuterol (Ventolin Hfa) 2 puff Q4H RESP THERAPY PRN INH SHORTNESS OF BREATH Last administered on 10/06/18 23:52; Admin Dose 2 PUFF; Start 09/27/18 at 20:30 Ascorbic Acid (Vitamin C) 500 mg BID GTB Last administered on 10/06/18 21:35; Admin Dose 500 MG; Start 09/29/18 at 21:00; Stop 10/13/18 at 20:59 Zinc Sulfate (Zinc Sulfate) 220 mg DAILY NGT Last administered on 10/06/18 09:54; Admin Dose 220 MG; Start 09/30/18 at 09:00; Stop 10/09/18 at 08:59 Multivitamins (Multivitamin) 30 ml DAILY GTB Last administered on 10/06/18 09:54; Admin Dose 30 ML; Start 09/30/18 at 09:00 Mirtazapine (Remeron) 15 mg HS PO Last administered on 10/06/18at 21:37; Admin D ose 15 MG; Start 09/29/18 at 21:00 Hydromorphone HCl (Dilaudid) 0.5 mg Q4H PRN IV SEVERE PAIN LEVEL 7-10 Last administered on 10/07/18at 07:58; Admin Dose 0.5 MG; Start 10/04/18 at 12:00 Docusate Sodium (Colace Liquid Cup) 100 mg BID PRN GTB CONSTIPATION; Start 10/07/18 at 03:30 DELMY HARTMAN Oct 07, 2018 09:41
[2018-10-07] MEDS: ENOXAPARIN 40 MG/0.4 ML SYG SC SCH (10:00)
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
[2018-10-07] MEDS: ACETAMINOPHEN 325 MG TAB PO PRN (20:14)
[2018-10-07] MEDS: FAMOTIDINE 20 MG TAB GTB SCH (20:14)
[2018-10-07] MEDS: MIRTAZAPINE 15 MG TAB PO SCH (20:15)
[2018-10-08] VITALS (23 sets, daily range): BP systolic 106–134; BP diastolic 62–85; PULSE 80–118; RESP 14–20
[2018-10-08] MEDS: ACETAMINOPHEN 325 MG TAB PO PRN (00:15)
[2018-10-08] MEDS: HYDROmorphONE 0.5 MG/0.5 ML SYG IV PRN ×6 (00:15→20:48)
[2018-10-08] MEDS: HYDROCODONE/APAP (5/325) TAB PO PRN ×4 (03:10→20:10)
[2018-10-08] MEDS: LORAZEPAM 1 MG TAB GTB PRN ×3 (03:11→22:06)
[2018-10-08] MEDS: ONDANSETRON 4 MG INJ IV PRN ×4 (04:26→22:06)
[2018-10-08] MEDS: ALBUTEROL HFA 8 GM INHALER INH SCH ×3 (07:38→19:42)
[2018-10-08] MEDS: ASCORBIC ACID 500 MG TAB GTB SCH ×2 (08:52→20:09)
[2018-10-08] MEDS: MULTIVITAMINS 30 ML CUP GTB SCH (08:52)
[2018-10-08] MEDS: ZINC SULFATE 220 MG CAP NGT SCH (08:52)
[2018-10-08] MEDS: ENOXAPARIN 40 MG/0.4 ML SYG SC SCH (08:59)
--- NOTE | 2018-10-08 10:08 | CONS ---
Date/Time of Note Date/Time of Note DATE: 10/08/18 TIME: 10:06 Consultation Date/Type/Reason Admit Date/Time Sep 23, 2018 at 18:14 Initial Consult Date 09/25/18 Type of Consultation: Pulmonary 24 HR Interval Summary Free Text/Dictation Patient's condition is stable. Has remained hemodynamically stable. General exam; young male, on ventilator via tracheostomy, currently in no distress. H ENT exam; supple neck, tracheostomy in place. Patient has fair dentition. No neck masses. Chest exam; clear to auscultation. S1-S2 audible, no murmurs. Regular rhythm. Abdomen exam; soft, nondistended. No organomegaly. Bowel sounds audible. G- tube in place. Extremity exam; no edema clubbing. [employer] exam; patient has stable quadriplegia. Ventilator setting; AC of 18, tidal volume 500, PEEP of 5, 30% FiO2. Assessment recommendations; 1. Patient with history of HIV and VDR F and quadriplegia admitted for bilateral pneumonia with marked interval improvement. Off antibiotics. 2. Recent history of sacral osteomyelitis. Status post treatment. Continue current supportive care. Patient awaiting discharge. Exam/Review of Systems Vital Signs Vitals Vital Signs Date Temp Pulse Resp B/P (MAP) Pulse Ox O2 O2 Flow FiO2 Time Delivery Rate 10/08/18 102 09:22 10/08/18 98.5 20 117/66 95 08:00 (83) 10/08/18 30 05:27 10/07/18 Mechanical 20:05 Ventilator Intake and Output 10/07/18 10/07/18 10/08/18 1414:59 22:59 06:59 IntakeIntake Total 650 ml OutputOutput Total 700 ml BalanceBalance -50 ml Medications Medications Current Medications Enoxaparin Sodium (Lovenox) 40 mg DAILY SC Last administered on 10/08/18at 08:59; Admin Dose 40 MG; Start 09/24/18 at 09:00 Famotidine (Pepcid) 20 mg QHS GTB Last administered on 10/07/18at 20:14; Admin Dose 20 MG; Start 09/23/18 at 21:00 Lorazepam (Ativan) 2 mg Q6 PRN GTB ANXIETY Last administered on 10/08/18at 03:11; Admin Dose 1 MG; Start 09/23/18 at 20:00 Acetaminophen/ Hydrocodone Bitart ([place] (5/325)) 1 tab Q4H PRN PO MODERATE PAIN LEVEL 4-6 Last administered on 10/08/18 03:10; Admin Dose 1 TAB; Start 09/23/18 at 20:30 Acetaminophen (Tylenol Tab) 650 mg Q4H PRN PO MILD PAIN(1-3)OR ELEVATED TEMP Last administered on 10/08/18 00:15; Admin Dose 650 MG; Start 09/23/18 at 20: 30 Albuterol (Ventolin Hfa) 4 puff Q6HWA RESP THERAPY INH Last administered on 10/08/18 07:38; Admin Dose 4 PUFF; Start 09/25/18 at 20:00 Ondansetron HCl (Zofran Inj) 4 mg Q4H PRN IV NAUSEA AND/OR VOMITING Last administered on 10/08/18 08:54; Admin Dose 4 MG; Start 09/27/18 at 14:00 Albuterol (Ventolin Hfa) 2 puff Q4H RESP THERAPY PRN INH SHORTNESS OF BREATH Last administered on 10/06/18 23:52; Admin Dose 2 PUFF; Start 09/27/18 at 20:30 Ascorbic Acid (Vitamin C) 500 mg BID GTB Last administered on 10/08/18 08:52; Admin Dose 500 MG; Start 09/29/18 at 21:00; Stop 10/13/18 at 20:59 Zinc Sulfate (Zinc Sulfate) 220 mg DAILY NGT Last administered on 10/08/18 08:52; Admin Dose 220 MG; Start 09/30/18 at 09:00; Stop 10/09/18 at 08:59 Multivitamins (Multivitamin) 30 ml DAILY GTB Last administered on 10/08/18 08:52; Admin Dose 30 ML; Start 09/30/18 at 09:00 Mirtazapine (Remeron) 15 mg HS PO Last administered on 10/07/18 20:15; Admin Dose 15 MG; Start 09/29/18 at 21:00 Hydromorphone HCl (Dilaudid) 0.5 mg Q4H PRN IV SEVERE PAIN LEVEL 7-10 Last administered on 10/08/18 08:26; Admin Dose 0.5 MG; Start 10/04/18 at 12:00 Docusate Sodium (Colace Liquid Cup) 100 mg BID PRN GTB CONSTIPATION; Start 10/07/18 at 03:30 DELMY HARTMAN Oct 08, 2018 10:07
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
[2018-10-08] MEDS ORDERED: VANCOMYCIN IV PER PHARMACY XX SCH (13:00)
[2018-10-08] MEDS: CEFEPIME 1GM/50 ML (PMX) 50 ML IVPB SCH ×2 (14:35→22:06)
[2018-10-08] MEDS: ALBUTEROL HFA 8 GM INHALER INH PRN (15:25)
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
[2018-10-08] MEDS ORDERED: VANCOMYCIN 1.5 GM in SOD CHLORIDE 0.9% 250 ML IVPB SCH (16:00)
[2018-10-08] MEDS: FAMOTIDINE 20 MG TAB GTB SCH (20:09)
[2018-10-08] MEDS: MIRTAZAPINE 15 MG TAB PO SCH (20:09)
[2018-10-08] MEDS: VANCOMYCIN 1 GM 250 ML IVPB SCH (23:51)
[2018-10-09] VITALS (24 sets, daily range): BP systolic 95–129; BP diastolic 54–80; PULSE 63–108; RESP 12–20
[2018-10-09] MEDS: HYDROmorphONE 0.5 MG/0.5 ML SYG IV PRN ×6 (00:46→21:49)
[2018-10-09] MEDS: HYDROCODONE/APAP (5/325) TAB PO PRN ×4 (01:48→20:26)
[2018-10-09] MEDS: CEFEPIME 1GM/50 ML (PMX) 50 ML IVPB SCH ×3 (05:46→21:50)
[2018-10-09] MEDS: ALBUTEROL HFA 8 GM INHALER INH SCH ×3 (07:35→13:46)
[2018-10-09] MEDS: DOCUSATE SODIUM 10 MG/ML (10ML CUP) GTB PRN (08:31)
[2018-10-09] MEDS: VANCOMYCIN 1 GM 250 ML IVPB SCH (08:31)
[2018-10-09] MEDS: MULTIVITAMINS 30 ML CUP GTB SCH (08:31)
[2018-10-09] MEDS: ONDANSETRON 4 MG INJ IV PRN ×2 (08:32→12:27)
[2018-10-09] MEDS: LORAZEPAM 1 MG TAB GTB PRN ×2 (08:32→14:08)
[2018-10-09] MEDS: ASCORBIC ACID 500 MG TAB GTB SCH ×2 (08:32→20:25)
[2018-10-09] MEDS: ENOXAPARIN 40 MG/0.4 ML SYG SC SCH (08:48)
[2018-10-09] MEDS ORDERED: POTASSIUM CHLORIDE 20 MEQ POWDER FOR ORAL SOLN GTB ONE (10:30)
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
[2018-10-09] MEDS: VANCOMYCIN 750 MG in SOD CHLORIDE 0.9% 150 ML IVPB SCH (18:19)
[2018-10-09] MEDS: FAMOTIDINE 20 MG TAB GTB SCH (20:25)
[2018-10-09] MEDS: MIRTAZAPINE 15 MG TAB PO SCH (20:25)
[2018-10-10] VITALS (26 sets, daily range): BP systolic 103–135; BP diastolic 57–80; PULSE 71–112; RESP 16–24
[2018-10-10] MEDS: VANCOMYCIN 750 MG in SOD CHLORIDE 0.9% 150 ML IVPB SCH ×3 (02:25→18:55)
[2018-10-10] MEDS: HYDROmorphONE 0.5 MG/0.5 ML SYG IV PRN ×5 (03:40→21:34)
[2018-10-10] MEDS: CEFEPIME 1GM/50 ML (PMX) 50 ML IVPB SCH ×3 (05:01→21:33)
[2018-10-10] MEDS: ALBUTEROL HFA 8 GM INHALER INH PRN ×2 (05:35→19:59)
[2018-10-10] MEDS: ALBUTEROL HFA 8 GM INHALER INH SCH ×3 (07:29→13:04)
[2018-10-10] MEDS: MULTIVITAMINS 30 ML CUP GTB SCH (08:15)
[2018-10-10] MEDS: ASCORBIC ACID 500 MG TAB GTB SCH ×2 (08:15→20:49)
[2018-10-10] MEDS: LORAZEPAM 1 MG TAB GTB PRN ×2 (08:15→15:42)
[2018-10-10] MEDS: DOCUSATE SODIUM 10 MG/ML (10ML CUP) GTB PRN (08:15)
[2018-10-10] MEDS: ONDANSETRON 4 MG INJ IV PRN ×2 (08:17→12:44)
[2018-10-10] MEDS: ENOXAPARIN 40 MG/0.4 ML SYG SC SCH (08:29)
[2018-10-10] MEDS: HYDROCODONE/APAP (5/325) TAB PO PRN ×3 (10:05→20:49)
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
[2018-10-10] MEDS: MIRTAZAPINE 15 MG TAB PO SCH (20:49)
[2018-10-10] MEDS: FAMOTIDINE 20 MG TAB GTB SCH (20:49)
[2018-10-11] VITALS (23 sets, daily range): BP systolic 88–108; BP diastolic 50–63; PULSE 82–114; RESP 12–22
[2018-10-11] MEDS: HYDROmorphONE 0.5 MG/0.5 ML SYG IV PRN ×6 (01:44→22:34)
[2018-10-11] MEDS: VANCOMYCIN 750 MG in SOD CHLORIDE 0.9% 150 ML IVPB SCH ×3 (02:13→17:35)
[2018-10-11] MEDS: ALBUTEROL HFA 8 GM INHALER INH PRN (03:29)
[2018-10-11] MEDS: HYDROCODONE/APAP (5/325) TAB PO PRN ×6 (04:39→21:34)
[2018-10-11] MEDS: LORAZEPAM 1 MG TAB GTB PRN ×3 (04:39→17:34)
[2018-10-11] MEDS: ONDANSETRON 4 MG INJ IV PRN ×2 (06:07→13:40)
[2018-10-11] MEDS: CEFEPIME 1GM/50 ML (PMX) 50 ML IVPB SCH ×3 (06:08→21:30)
[2018-10-11] MEDS ORDERED: POTASSIUM CHLORIDE 20 MEQ POWDER FOR ORAL SOLN GTB ONE ×2 (08:00→12:00)
[2018-10-11] MEDS: ALBUTEROL HFA 8 GM INHALER INH SCH ×3 (08:01→19:43)
[2018-10-11] MEDS: MULTIVITAMINS 30 ML CUP GTB SCH (09:00)
[2018-10-11] MEDS: ASCORBIC ACID 500 MG TAB GTB SCH ×2 (09:22→21:31)
[2018-10-11] MEDS: ENOXAPARIN 40 MG/0.4 ML SYG SC SCH (09:31)
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
[2018-10-11] MEDS: MIRTAZAPINE 15 MG TAB PO SCH (21:30)
[2018-10-11] MEDS: FAMOTIDINE 20 MG TAB GTB SCH (21:31)
[2018-10-12] VITALS (25 sets, daily range): BP systolic 88–116; BP diastolic 50–68; PULSE 72–115; RESP 14–22
[2018-10-12] MEDS: VANCOMYCIN 750 MG in SOD CHLORIDE 0.9% 150 ML IVPB SCH ×3 (02:08→18:16)
[2018-10-12] MEDS: HYDROmorphONE 0.5 MG/0.5 ML SYG IV PRN ×6 (02:36→22:57)
[2018-10-12] MEDS: CEFEPIME 1GM/50 ML (PMX) 50 ML IVPB SCH ×2 (05:45→13:39)
[2018-10-12] MEDS: ALBUTEROL HFA 8 GM INHALER INH PRN (05:51)
[2018-10-12] MEDS ORDERED: MAGNESIUM SULFATE 3 GM in DEXTROSE 5% 100 ML IVPB ONE (06:00)
[2018-10-12] MEDS: ONDANSETRON 4 MG INJ IV PRN ×2 (06:20→12:33)
[2018-10-12] MEDS: ALBUTEROL HFA 8 GM INHALER INH SCH ×3 (08:41→19:30)
[2018-10-12] MEDS: HYDROCODONE/APAP (5/325) TAB PO PRN ×3 (08:59→20:49)
[2018-10-12] MEDS: ASCORBIC ACID 500 MG TAB GTB SCH ×2 (08:59→20:50)
[2018-10-12] MEDS: MULTIVITAMINS 30 ML CUP GTB SCH (08:59)
[2018-10-12] MEDS: ENOXAPARIN 40 MG/0.4 ML SYG SC SCH (09:06)
[2018-10-12] MEDS: ACETAMINOPHEN 325 MG TAB PO PRN (11:17)
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
[2018-10-12] MEDS ORDERED: SOD CHLORIDE 0.9% 500 ML IV ONE ×2 (20:00)
[2018-10-12] MEDS: MIRTAZAPINE 15 MG TAB PO SCH (20:50)
[2018-10-12] MEDS: FAMOTIDINE 20 MG TAB GTB SCH (20:50)
[2018-10-12] MEDS ORDERED: SOD CHLORIDE 0.9% 1,000 ML IV SCH (21:00)
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
[2018-10-12] MEDS: metroNIDAZOLE 500 MG/NS (PMX) 100 ML IVPB SCH (22:57)
[2018-10-12] MEDS: DEXTROSE 5%-0.45% NACL 1,000 ML IV SCH (22:58)
[2018-10-13] VITALS (23 sets, daily range): BP systolic 94–123; BP diastolic 54–75; PULSE 62–97; RESP 14–23
[2018-10-13] MEDS: CEFEPIME 1GM/50 ML (PMX) 50 ML IVPB SCH ×4 (00:16→22:47)
[2018-10-13] MEDS: VANCOMYCIN 750 MG in SOD CHLORIDE 0.9% 150 ML IVPB SCH ×3 (02:22→17:41)
[2018-10-13] MEDS: HYDROmorphONE 0.5 MG/0.5 ML SYG IV PRN ×6 (03:01→23:48)
[2018-10-13] MEDS: metroNIDAZOLE 500 MG/NS (PMX) 100 ML IVPB SCH ×3 (05:23→22:47)
[2018-10-13] MEDS: HYDROCODONE/APAP (5/325) TAB PO PRN ×3 (05:38→22:59)
[2018-10-13] MEDS: ALBUTEROL HFA 8 GM INHALER INH SCH ×3 (07:31→17:01)
[2018-10-13] MEDS: ASCORBIC ACID 500 MG TAB GTB SCH (08:44)
[2018-10-13] MEDS: ACETAMINOPHEN 325 MG TAB PO PRN (08:44)
[2018-10-13] MEDS: MULTIVITAMINS 30 ML CUP GTB SCH (08:44)
[2018-10-13] MEDS: ENOXAPARIN 40 MG/0.4 ML SYG SC SCH (08:45)
[2018-10-13] MEDS: ONDANSETRON 4 MG INJ IV PRN ×2 (08:59→23:00)
[2018-10-13] MEDS: DEXTROSE 5%-0.45% NACL 1,000 ML IV SCH (10:18)
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
[2018-10-13] MEDS: ALBUTEROL HFA 8 GM INHALER INH PRN ×2 (19:19→23:50)
[2018-10-13] MEDS: MIRTAZAPINE 15 MG TAB PO SCH (22:46)
[2018-10-13] MEDS: FAMOTIDINE 20 MG TAB GTB SCH (22:47)
[2018-10-14] VITALS (21 sets, daily range): BP systolic 92–123; BP diastolic 52–73; PULSE 62–90; RESP 14–22
[2018-10-14] MEDS: DEXTROSE 5%-0.45% NACL 1,000 ML IV SCH ×2 (00:36→15:04)
[2018-10-14] MEDS: VANCOMYCIN 750 MG in SOD CHLORIDE 0.9% 150 ML IVPB SCH ×3 (03:03→17:14)
[2018-10-14] MEDS: HYDROCODONE/APAP (5/325) TAB PO PRN ×4 (03:09→19:50)
[2018-10-14] MEDS: ALBUTEROL HFA 8 GM INHALER INH PRN (03:29)
[2018-10-14] MEDS: HYDROmorphONE 0.5 MG/0.5 ML SYG IV PRN ×5 (03:46→21:27)
[2018-10-14] MEDS: CEFEPIME 1GM/50 ML (PMX) 50 ML IVPB SCH ×3 (06:07→22:00)
[2018-10-14] MEDS: metroNIDAZOLE 500 MG/NS (PMX) 100 ML IVPB SCH ×3 (07:02→21:27)
[2018-10-14] MEDS: MULTIVITAMINS 30 ML CUP GTB SCH (08:13)
[2018-10-14] MEDS: ENOXAPARIN 40 MG/0.4 ML SYG SC SCH (08:15)
[2018-10-14] MEDS: ONDANSETRON 4 MG INJ IV PRN (11:14)
[2018-10-14] MEDS: ALBUTEROL HFA 8 GM INHALER INH SCH ×3 (13:05→19:24)
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
[2018-10-14] MEDS ORDERED: SOD CHLORIDE 0.9% 250 ML IV* ONE (16:40)
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
[2018-10-14] MEDS: MIRTAZAPINE 15 MG TAB PO SCH (21:26)
[2018-10-14] MEDS: FAMOTIDINE 20 MG TAB GTB SCH (21:27)
[2018-10-15] VITALS (23 sets, daily range): BP systolic 90–120; BP diastolic 52–72; PULSE 44–107; RESP 14–20
[2018-10-15] MEDS: HYDROmorphONE 0.5 MG/0.5 ML SYG IV PRN ×6 (01:36→21:56)
[2018-10-15] MEDS: VANCOMYCIN 750 MG in SOD CHLORIDE 0.9% 150 ML IVPB SCH ×3 (01:36→17:17)
[2018-10-15] MEDS: ALBUTEROL HFA 8 GM INHALER INH PRN (03:58)
[2018-10-15] MEDS: HYDROCODONE/APAP (5/325) TAB PO PRN ×5 (04:27→21:09)
[2018-10-15] MEDS: metroNIDAZOLE 500 MG/NS (PMX) 100 ML IVPB SCH ×3 (05:11→21:10)
[2018-10-15] MEDS: DEXTROSE 5%-0.45% NACL 1,000 ML IV SCH ×2 (05:25→21:10)
[2018-10-15] MEDS: CEFEPIME 1GM/50 ML (PMX) 50 ML IVPB SCH ×3 (05:34→21:10)
[2018-10-15] MEDS: ALBUTEROL HFA 8 GM INHALER INH SCH ×3 (07:31→19:29)
[2018-10-15] MEDS: MULTIVITAMINS 30 ML CUP GTB SCH (08:11)
[2018-10-15] MEDS: ENOXAPARIN 40 MG/0.4 ML SYG SC SCH (08:19)
[2018-10-15] MEDS ORDERED: ALTEPLASE (CATHFLO) 2 MG INJ CATHETER ONE ×2 (08:30→11:00)
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
[2018-10-15] MEDS ORDERED: POTASSIUM CHLORIDE 100 ML IVPB ONE (17:00)
[2018-10-15] MEDS: FAMOTIDINE 20 MG TAB GTB SCH (21:09)
[2018-10-15] MEDS: MIRTAZAPINE 15 MG TAB PO SCH (21:09)
[2018-10-16] VITALS (24 sets, daily range): BP systolic 94–116; BP diastolic 52–64; PULSE 61–91; RESP 14–22
[2018-10-16] MEDS: HYDROmorphONE 0.5 MG/0.5 ML SYG IV PRN ×6 (02:01→22:23)
[2018-10-16] MEDS: VANCOMYCIN 750 MG in SOD CHLORIDE 0.9% 150 ML IVPB SCH ×2 (02:55→10:49)
[2018-10-16] MEDS: HYDROCODONE/APAP (5/325) TAB PO PRN ×5 (05:11→21:22)
[2018-10-16] MEDS: ALBUTEROL HFA 8 GM INHALER INH PRN (05:41)
[2018-10-16] MEDS: CEFEPIME 1GM/50 ML (PMX) 50 ML IVPB SCH ×3 (06:03→21:18)
[2018-10-16] MEDS: metroNIDAZOLE 500 MG/NS (PMX) 100 ML IVPB SCH ×3 (06:03→21:17)
[2018-10-16] MEDS: DEXTROSE 5%-0.45% NACL 1,000 ML IV SCH ×2 (09:02→23:37)
[2018-10-16] MEDS: LORAZEPAM 1 MG TAB GTB PRN (09:02)
[2018-10-16] MEDS: DOCUSATE SODIUM 10 MG/ML (10ML CUP) GTB PRN (09:02)
[2018-10-16] MEDS: ENOXAPARIN 40 MG/0.4 ML SYG SC SCH (09:11)
[2018-10-16] MEDS: MULTIVITAMINS 30 ML CUP GTB SCH (09:11)
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
[2018-10-16] MEDS: VANCOMYCIN 500 MG (PMX) 100 ML IVPB SCH (18:12)
[2018-10-16] MEDS: ONDANSETRON 4 MG INJ IV PRN (18:56)
[2018-10-16] MEDS: ALBUTEROL HFA 8 GM INHALER INH SCH (19:28)
[2018-10-16] MEDS: MIRTAZAPINE 15 MG TAB PO SCH (21:17)
[2018-10-16] MEDS: FAMOTIDINE 20 MG TAB GTB SCH (21:18)
[2018-10-16] MEDS: ACETAMINOPHEN 325 MG TAB PO PRN (21:26)
[2018-10-17] VITALS (31 sets, daily range): BP systolic 61–137; BP diastolic 33–91; PULSE 59–89; RESP 15–21
[2018-10-17] MEDS: HYDROCODONE/APAP (5/325) TAB PO PRN ×5 (01:25→17:43)
[2018-10-17] MEDS: ACETAMINOPHEN 325 MG TAB PO PRN ×3 (01:26→21:09)
[2018-10-17] MEDS: ONDANSETRON 4 MG INJ IV PRN ×2 (01:32→06:53)
[2018-10-17] MEDS: VANCOMYCIN 500 MG (PMX) 100 ML IVPB SCH ×3 (02:11→17:43)
[2018-10-17] MEDS: HYDROmorphONE 0.5 MG/0.5 ML SYG IV PRN ×5 (02:27→18:58)
[2018-10-17] MEDS: ALBUTEROL HFA 8 GM INHALER INH PRN ×2 (05:50→11:58)
[2018-10-17] MEDS: DEXTROSE 5%-0.45% NACL 1,000 ML IV SCH (06:35)
[2018-10-17] MEDS: ALBUTEROL HFA 8 GM INHALER INH SCH ×3 (08:42→20:10)
[2018-10-17] MEDS: MEROPENEM 1 GM/50ML(PMX) 50 ML IVPB SCH ×2 (09:02→21:06)
[2018-10-17] MEDS: MULTIVITAMINS 30 ML CUP GTB SCH (09:02)
[2018-10-17] MEDS: ENOXAPARIN 40 MG/0.4 ML SYG SC SCH (09:03)
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
[2018-10-17] MEDS ORDERED: SOD CHLORIDE 0.9% 1,000 ML IV ONE ×2 (20:00→21:00)
[2018-10-17] MEDS ORDERED: SOD CHLORIDE 0.9% 250 ML IV ONE (20:00)
[2018-10-17] MEDS: FAMOTIDINE 20 MG TAB GTB SCH (21:06)
[2018-10-17] MEDS: MIRTAZAPINE 15 MG TAB PO SCH (21:08)
[2018-10-17] MEDS ORDERED: SOD CHLORIDE 0.9% 500 ML IV ONE (23:00)
[2018-10-18] VITALS (26 sets, daily range): BP systolic 93–114; BP diastolic 51–65; PULSE 56–98; RESP 14–22
[2018-10-18] MEDS: KETOROLAC 30 MG INJ IV PRN ×2 (00:21→06:21)
[2018-10-18] MEDS: HYDROmorphONE 0.5 MG/0.5 ML SYG IV PRN ×5 (01:43→20:56)
[2018-10-18] MEDS: VANCOMYCIN 650 MG in SOD CHLORIDE 0.9% 150 ML IVPB SCH ×3 (01:44→17:32)
[2018-10-18] MEDS: ACETAMINOPHEN 325 MG TAB PO PRN (04:09)
[2018-10-18] MEDS: DEXTROSE 5%-0.45% NACL 1,000 ML IV SCH ×3 (04:10→23:49)
[2018-10-18] MEDS: ALBUTEROL HFA 8 GM INHALER INH SCH ×3 (07:49→19:45)
[2018-10-18] MEDS: MULTIVITAMINS 30 ML CUP GTB SCH (08:17)
[2018-10-18] MEDS: MEROPENEM 1 GM/50ML(PMX) 50 ML IVPB SCH ×2 (08:18→20:55)
[2018-10-18] MEDS: ENOXAPARIN 40 MG/0.4 ML SYG SC SCH (08:30)
[2018-10-18] MEDS: HYDROCODONE/APAP (5/325) TAB PO PRN ×2 (10:25→19:25)
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
[2018-10-18] MEDS: ONDANSETRON 4 MG INJ IV PRN (17:36)
[2018-10-18] MEDS: FAMOTIDINE 20 MG TAB GTB SCH (20:55)
[2018-10-18] MEDS: MIRTAZAPINE 15 MG TAB PO SCH (20:55)
[2018-10-18] MEDS: LORAZEPAM 1 MG TAB GTB PRN (23:56)
[2018-10-19] VITALS (20 sets, daily range): BP systolic 103–109; BP diastolic 56–60; PULSE 61–92; RESP 14–22
[2018-10-19] MEDS: ALBUTEROL HFA 8 GM INHALER INH PRN (00:09)
[2018-10-19] MEDS: HYDROCODONE/APAP (5/325) TAB PO PRN ×4 (00:35→20:37)
[2018-10-19] MEDS: VANCOMYCIN 650 MG in SOD CHLORIDE 0.9% 150 ML IVPB SCH ×3 (02:59→17:01)
[2018-10-19] MEDS: HYDROmorphONE 0.5 MG/0.5 ML SYG IV PRN ×4 (04:19→17:02)
[2018-10-19] MEDS: ALBUTEROL HFA 8 GM INHALER INH SCH ×3 (08:15→20:27)
[2018-10-19] MEDS: MULTIVITAMINS 30 ML CUP GTB SCH (08:22)
[2018-10-19] MEDS: MEROPENEM 1 GM/50ML(PMX) 50 ML IVPB SCH ×2 (08:27→21:36)
[2018-10-19] MEDS: ENOXAPARIN 40 MG/0.4 ML SYG SC SCH (08:37)
[2018-10-19] MEDS: DEXTROSE 5%-0.45% NACL 1,000 ML IV SCH ×2 (09:12→19:15)
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
[2018-10-19] MEDS: LORAZEPAM 1 MG TAB GTB PRN (20:04)
[2018-10-19] MEDS: MIRTAZAPINE 15 MG TAB PO SCH (20:37)
[2018-10-19] MEDS: FAMOTIDINE 20 MG TAB GTB SCH (20:37)
[2018-10-20] VITALS (23 sets, daily range): BP systolic 111–128; BP diastolic 59–76; PULSE 48–89; RESP 14–18
[2018-10-20] MEDS: HYDROmorphONE 0.5 MG/0.5 ML SYG IV PRN ×6 (00:39→23:47)
[2018-10-20] MEDS: VANCOMYCIN 650 MG in SOD CHLORIDE 0.9% 150 ML IVPB SCH ×2 (02:25→09:10)
[2018-10-20] MEDS: LORAZEPAM 1 MG TAB GTB PRN ×2 (03:03→20:29)
[2018-10-20] MEDS: HYDROCODONE/APAP (5/325) TAB PO PRN ×4 (04:25→20:58)
[2018-10-20] MEDS: DEXTROSE 5%-0.45% NACL 1,000 ML IV SCH ×3 (04:53→17:44)
[2018-10-20] MEDS: MEROPENEM 1 GM/50ML(PMX) 50 ML IVPB SCH ×2 (08:37→20:59)
[2018-10-20] MEDS: MULTIVITAMINS 30 ML CUP GTB SCH (08:37)
[2018-10-20] MEDS: ENOXAPARIN 40 MG/0.4 ML SYG SC SCH (08:53)
[2018-10-20] MEDS: ALBUTEROL HFA 8 GM INHALER INH SCH ×3 (10:07→20:48)
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
[2018-10-20] MEDS ORDERED: POTASSIUM CHLORIDE 20 MEQ POWDER FOR ORAL SOLN GTB ONE (14:30)
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
[2018-10-20] MEDS: ONDANSETRON 4 MG INJ IV PRN (15:23)
[2018-10-20] MEDS: ZYVOX 600 MG TAB PO SCH (20:58)
[2018-10-20] MEDS: FAMOTIDINE 20 MG TAB GTB SCH (20:58)
[2018-10-20] MEDS: MIRTAZAPINE 15 MG TAB PO SCH (20:58)
[2018-10-21] VITALS (21 sets, daily range): BP systolic 88–124; BP diastolic 53–68; PULSE 64–86; RESP 14–24
[2018-10-21] MEDS: DEXTROSE 5%-0.45% NACL 1,000 ML IV SCH ×4 (00:48→21:12)
[2018-10-21] MEDS: HYDROmorphONE 0.5 MG/0.5 ML SYG IV PRN ×5 (04:37→21:41)
[2018-10-21] MEDS: LORAZEPAM 1 MG TAB GTB PRN (06:48)
[2018-10-21] MEDS: HYDROCODONE/APAP (5/325) TAB PO PRN ×3 (07:00→18:38)
[2018-10-21] MEDS: ZYVOX 600 MG TAB PO SCH ×2 (08:29→21:41)
[2018-10-21] MEDS: MEROPENEM 1 GM/50ML(PMX) 50 ML IVPB SCH ×2 (08:29→22:26)
[2018-10-21] MEDS: MULTIVITAMINS 30 ML CUP GTB SCH (08:29)
[2018-10-21] MEDS: ENOXAPARIN 40 MG/0.4 ML SYG SC SCH (08:59)
[2018-10-21] MEDS ORDERED: ALTEPLASE (CATHFLO) 2 MG INJ CATHETER ONE (10:00)
[2018-10-21] MEDS: ALBUTEROL HFA 8 GM INHALER INH SCH ×3 (10:07→21:10)
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
[2018-10-21] MEDS: FAMOTIDINE 20 MG TAB GTB SCH (21:41)
[2018-10-22] VITALS (23 sets, daily range): BP systolic 103–131; BP diastolic 63–88; PULSE 60–84; RESP 14–22
[2018-10-22] MEDS: HYDROmorphONE 0.5 MG/0.5 ML SYG IV PRN ×6 (01:33→22:30)
[2018-10-22] MEDS: MIRTAZAPINE 15 MG TAB PO SCH ×2 (01:34→22:29)
[2018-10-22] MEDS: ALBUTEROL HFA 8 GM INHALER INH PRN ×2 (01:56→16:58)
[2018-10-22] MEDS: HYDROCODONE/APAP (5/325) TAB PO PRN ×3 (04:04→21:01)
[2018-10-22] MEDS: DEXTROSE 5%-0.45% NACL 1,000 ML IV SCH ×3 (04:05→18:07)
[2018-10-22] MEDS: ALBUTEROL HFA 8 GM INHALER INH SCH ×3 (08:05→19:15)
[2018-10-22] MEDS: ZYVOX 600 MG TAB PO SCH ×2 (08:21→21:00)
[2018-10-22] MEDS: MULTIVITAMINS 30 ML CUP GTB SCH (08:21)
[2018-10-22] MEDS: ENOXAPARIN 40 MG/0.4 ML SYG SC SCH (08:24)
[2018-10-22] MEDS: MEROPENEM 1 GM/50ML(PMX) 50 ML IVPB SCH ×2 (10:06→21:06)
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
[2018-10-22] MEDS: FAMOTIDINE 20 MG TAB GTB SCH (21:01)
[2018-10-23] VITALS (22 sets, daily range): BP systolic 90–126; BP diastolic 52–80; PULSE 54–85; RESP 14–19
[2018-10-23] MEDS: HYDROmorphONE 0.5 MG/0.5 ML SYG IV PRN ×6 (02:55→23:43)
[2018-10-23] MEDS: DEXTROSE 5%-0.45% NACL 1,000 ML IV SCH ×3 (04:00→23:51)
[2018-10-23] MEDS: ALBUTEROL HFA 8 GM INHALER INH PRN ×2 (04:04→16:46)
[2018-10-23] MEDS: HYDROCODONE/APAP (5/325) TAB PO PRN ×5 (05:22→21:54)
[2018-10-23] MEDS: ALBUTEROL HFA 8 GM INHALER INH SCH ×3 (08:25→19:15)
[2018-10-23] MEDS: ZYVOX 600 MG TAB PO SCH (09:41)
[2018-10-23] MEDS: MEROPENEM 1 GM/50ML(PMX) 50 ML IVPB SCH (09:41)
[2018-10-23] MEDS: MULTIVITAMINS 30 ML CUP GTB SCH (09:41)
[2018-10-23] MEDS: ENOXAPARIN 40 MG/0.4 ML SYG SC SCH (10:08)
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
[2018-10-23] MEDS: ONDANSETRON 4 MG INJ IV PRN (19:45)
[2018-10-23] MEDS: TOBRAMYCIN/0.25NS 300 MG/5 ML INHAL NEB SCH (20:00)
[2018-10-23] MEDS: MIRTAZAPINE 15 MG TAB PO SCH ×2 (21:00→23:43)
[2018-10-23] MEDS: TRIMETHOPRIM/SULFAMETHOX (DS) TAB GTB SCH (21:53)
[2018-10-23] MEDS: FAMOTIDINE 20 MG TAB GTB SCH (21:53)
[2018-10-24] VITALS (22 sets, daily range): BP systolic 108–137; BP diastolic 58–82; PULSE 48–80; RESP 14–20
[2018-10-24] MEDS: HYDROCODONE/APAP (5/325) TAB PO PRN ×4 (02:41→20:03)
[2018-10-24] MEDS: HYDROmorphONE 0.5 MG/0.5 ML SYG IV PRN ×5 (04:30→21:39)
[2018-10-24] MEDS: ALBUTEROL HFA 8 GM INHALER INH SCH ×3 (08:30→20:30)
[2018-10-24] MEDS: TOBRAMYCIN/0.25NS 300 MG/5 ML INHAL NEB SCH ×2 (09:00→20:00)
[2018-10-24] MEDS: MULTIVITAMINS 30 ML CUP GTB SCH (09:01)
[2018-10-24] MEDS: TRIMETHOPRIM/SULFAMETHOX (DS) TAB GTB SCH ×2 (09:01→20:02)
[2018-10-24] MEDS: ENOXAPARIN 40 MG/0.4 ML SYG SC SCH (09:04)
[2018-10-24] MEDS: DEXTROSE 5%-0.45% NACL 1,000 ML IV SCH ×2 (09:06→20:03)
[2018-10-24] MEDS: LORAZEPAM 1 MG TAB GTB PRN ×2 (12:39→20:11)
[2018-10-24] MEDS: ACETAMINOPHEN 325 MG TAB PO PRN (13:57)
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
[2018-10-24] MEDS: FAMOTIDINE 20 MG TAB GTB SCH (20:02)
[2018-10-24] MEDS: MIRTAZAPINE 15 MG TAB PO SCH (20:03)
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
[2018-10-25] VITALS (21 sets, daily range): BP systolic 84–112; BP diastolic 46–65; PULSE 71–103; RESP 15–20
[2018-10-25] MEDS: HYDROCODONE/APAP (5/325) TAB PO PRN ×5 (00:23→16:57)
[2018-10-25] MEDS: HYDROmorphONE 0.5 MG/0.5 ML SYG IV PRN ×6 (01:38→22:37)
[2018-10-25] MEDS: DEXTROSE 5%-0.45% NACL 1,000 ML IV SCH ×2 (05:36→14:38)
[2018-10-25] MEDS: LORAZEPAM 1 MG TAB GTB PRN ×2 (05:53→22:03)
[2018-10-25] MEDS: ACETAMINOPHEN 325 MG TAB PO PRN (05:53)
[2018-10-25] MEDS: TOBRAMYCIN/0.25NS 300 MG/5 ML INHAL NEB SCH ×2 (08:05→19:53)
[2018-10-25] MEDS: ALBUTEROL HFA 8 GM INHALER INH SCH ×3 (08:05→19:54)
[2018-10-25] MEDS: MULTIVITAMINS 30 ML CUP GTB SCH (08:38)
[2018-10-25] MEDS: TRIMETHOPRIM/SULFAMETHOX (DS) TAB GTB SCH ×2 (08:38→22:03)
[2018-10-25] MEDS: ENOXAPARIN 40 MG/0.4 ML SYG SC SCH (08:48)
[2018-10-25] MEDS: ALBUTEROL HFA 8 GM INHALER INH PRN (16:15)
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
[2018-10-25] MEDS: MIRTAZAPINE 15 MG TAB PO SCH (22:03)
[2018-10-26] VITALS (22 sets, daily range): BP systolic 93–112; BP diastolic 52–63; PULSE 58–92; RESP 14–18
[2018-10-26] MEDS: DEXTROSE 5%-0.45% NACL 1,000 ML IV SCH ×3 (01:23→14:00)
[2018-10-26] MEDS: HYDROmorphONE 0.5 MG/0.5 ML SYG IV PRN ×6 (03:35→23:26)
[2018-10-26] MEDS: LORAZEPAM 1 MG TAB GTB PRN ×3 (05:40→20:23)
[2018-10-26] MEDS: ALBUTEROL HFA 8 GM INHALER INH SCH ×2 (08:07→13:32)
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
[2018-10-26] MEDS: TRIMETHOPRIM/SULFAMETHOX (DS) TAB GTB SCH ×2 (08:56→21:57)
[2018-10-26] MEDS: MULTIVITAMINS 30 ML CUP GTB SCH (08:56)
[2018-10-26] MEDS: ENOXAPARIN 40 MG/0.4 ML SYG SC SCH (13:02)
[2018-10-26] MEDS: ACETAMINOPHEN 325 MG TAB GTB PRN ×2 (16:20→22:09)
[2018-10-26] MEDS: ONDANSETRON 4 MG INJ IV PRN (18:06)
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
[2018-10-26] MEDS: TOBRAMYCIN/0.25NS 300 MG/5 ML INHAL NEB SCH (20:00)
[2018-10-26] MEDS: MIRTAZAPINE 15 MG TAB PO SCH (21:00)
[2018-10-27] VITALS (20 sets, daily range): BP systolic 90–97; BP diastolic 48–55; PULSE 68–91; RESP 14–25
[2018-10-27] MEDS: HYDROmorphONE 0.5 MG/0.5 ML SYG IV PRN ×5 (03:40→20:15)
[2018-10-27] MEDS: ALBUTEROL HFA 8 GM INHALER INH SCH ×3 (07:38→14:00)
[2018-10-27] MEDS: DEXTROSE 5%-0.45% NACL 1,000 ML IV SCH ×2 (07:44→16:39)
[2018-10-27] MEDS: TOBRAMYCIN/0.25NS 300 MG/5 ML INHAL NEB SCH (09:00)
[2018-10-27] MEDS: MULTIVITAMINS 30 ML CUP GTB SCH (09:06)
[2018-10-27] MEDS: TRIMETHOPRIM/SULFAMETHOX (DS) TAB GTB SCH ×2 (09:06→20:15)
[2018-10-27] MEDS: ENOXAPARIN 40 MG/0.4 ML SYG SC SCH (09:16)
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
[2018-10-27] MEDS: ONDANSETRON 4 MG INJ IV PRN (14:58)
[2018-10-27] MEDS: ACETAMINOPHEN 325 MG TAB GTB PRN ×2 (14:58→18:51)
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
[2018-10-27] MEDS: MIRTAZAPINE 15 MG TAB PO SCH (20:15)
[2018-10-28] VITALS (24 sets, daily range): BP systolic 73–105; BP diastolic 38–58; PULSE 61–101; RESP 14–19
[2018-10-28] MEDS: HYDROmorphONE 0.5 MG/0.5 ML SYG IV PRN ×5 (00:25→19:19)
[2018-10-28] MEDS: DEXTROSE 5%-0.45% NACL 1,000 ML IV SCH ×3 (02:02→21:39)
[2018-10-28] MEDS: LORAZEPAM 1 MG TAB GTB PRN ×3 (02:10→17:43)
[2018-10-28] MEDS: ACETAMINOPHEN 325 MG TAB GTB PRN ×4 (02:10→21:35)
[2018-10-28] MEDS: TRIMETHOPRIM/SULFAMETHOX (DS) TAB GTB SCH ×2 (08:42→21:32)
[2018-10-28] MEDS: MULTIVITAMINS 30 ML CUP GTB SCH (08:42)
[2018-10-28] MEDS: ENOXAPARIN 40 MG/0.4 ML SYG SC SCH (09:00)
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
[2018-10-28] MEDS: ALBUTEROL HFA 8 GM INHALER INH PRN (17:08)
[2018-10-28] MEDS: MIRTAZAPINE 15 MG TAB PO SCH (21:32)
[2018-10-29] VITALS (24 sets, daily range): BP systolic 79–131; BP diastolic 45–72; PULSE 73–112; RESP 15–22
[2018-10-29] MEDS: HYDROmorphONE 0.5 MG/0.5 ML SYG IV PRN ×6 (00:49→21:48)
[2018-10-29] MEDS: DEXTROSE 5%-0.45% NACL 1,000 ML IV SCH ×2 (07:35→18:24)
[2018-10-29] MEDS: MULTIVITAMINS 30 ML CUP GTB SCH (09:31)
[2018-10-29] MEDS: ENOXAPARIN 40 MG/0.4 ML SYG SC SCH (09:32)
[2018-10-29] MEDS: TRIMETHOPRIM/SULFAMETHOX (DS) TAB GTB SCH ×2 (09:49→21:48)
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
[2018-10-29] MEDS: LORAZEPAM 1 MG TAB GTB PRN ×2 (15:16→23:35)
[2018-10-29] MEDS: ALBUTEROL HFA 8 GM INHALER INH PRN ×2 (15:26→19:47)
[2018-10-29] MEDS: ACETAMINOPHEN 325 MG TAB GTB PRN ×2 (16:31→23:35)
[2018-10-29] MEDS: MIRTAZAPINE 15 MG TAB PO SCH (21:48)
[2018-10-30] VITALS (24 sets, daily range): BP systolic 90–115; BP diastolic 51–85; PULSE 68–113; RESP 15–22
[2018-10-30] MEDS: HYDROmorphONE 0.5 MG/0.5 ML SYG IV PRN ×5 (01:52→22:40)
[2018-10-30] MEDS: ACETAMINOPHEN 325 MG TAB GTB PRN ×3 (04:17→17:04)
[2018-10-30] MEDS: DEXTROSE 5%-0.45% NACL 1,000 ML IV SCH ×3 (04:40→15:12)
[2018-10-30] MEDS: TRIMETHOPRIM/SULFAMETHOX (DS) TAB GTB SCH ×2 (08:05→21:07)
[2018-10-30] MEDS: MULTIVITAMINS 30 ML CUP GTB SCH (08:05)
[2018-10-30] MEDS: ENOXAPARIN 40 MG/0.4 ML SYG SC SCH (08:18)
[2018-10-30] MEDS: LORAZEPAM 1 MG TAB GTB PRN ×2 (09:14→17:03)
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
[2018-10-30] MEDS ORDERED: METOPROLOL 5 MG INJ IV PRN (13:30)
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
[2018-10-30] MEDS: MIRTAZAPINE 15 MG TAB PO SCH (21:07)
[2018-10-31] VITALS (21 sets, daily range): BP systolic 97–142; BP diastolic 58–97; PULSE 55–112; RESP 14–20
[2018-10-31] MEDS: DEXTROSE 5%-0.45% NACL 1,000 ML IV SCH ×3 (00:51→21:10)
[2018-10-31] MEDS: LORAZEPAM 1 MG TAB GTB PRN ×4 (01:49→22:53)
[2018-10-31] MEDS: ACETAMINOPHEN 325 MG TAB GTB PRN ×3 (01:49→21:08)
[2018-10-31] MEDS: HYDROmorphONE 0.5 MG/0.5 ML SYG IV PRN ×6 (02:46→22:53)
[2018-10-31] MEDS: MULTIVITAMINS 30 ML CUP GTB SCH (09:47)
[2018-10-31] MEDS: TRIMETHOPRIM/SULFAMETHOX (DS) TAB GTB SCH ×2 (09:47→21:07)
[2018-10-31] MEDS: ENOXAPARIN 40 MG/0.4 ML SYG SC SCH (10:03)
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
[2018-10-31] MEDS: MIRTAZAPINE 15 MG TAB PO SCH (21:08)
[2018-11-01] VITALS (24 sets, daily range): BP systolic 87–145; BP diastolic 50–80; PULSE 69–126; RESP 14–23
[2018-11-01] MEDS: DEXTROSE 5%-0.45% NACL 1,000 ML IV SCH ×2 (02:13→11:32)
[2018-11-01] MEDS: HYDROmorphONE 0.5 MG/0.5 ML SYG IV PRN ×5 (02:55→19:56)
[2018-11-01] MEDS: ACETAMINOPHEN 325 MG TAB GTB PRN ×4 (05:10→18:44)
[2018-11-01] MEDS: LORAZEPAM 1 MG TAB GTB PRN ×2 (05:10→13:27)
[2018-11-01] MEDS: TRIMETHOPRIM/SULFAMETHOX (DS) TAB GTB SCH ×2 (09:31→20:01)
[2018-11-01] MEDS: ENOXAPARIN 40 MG/0.4 ML SYG SC SCH (09:40)
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
[2018-11-01] MEDS: MIRTAZAPINE 15 MG TAB PO SCH (20:01)
[2018-11-02] VITALS (52 sets, daily range): BP systolic 58–109; BP diastolic 31–76; PULSE 76–109; RESP 14–26
[2018-11-02] MEDS: HYDROmorphONE 0.5 MG/0.5 ML SYG IV PRN ×3 (00:03→21:36)
[2018-11-02] MEDS: DEXTROSE 5%-0.45% NACL 1,000 ML IV SCH ×4 (00:06→20:22)
[2018-11-02] MEDS: LORAZEPAM 1 MG TAB GTB PRN ×2 (01:40→20:21)
[2018-11-02] MEDS ORDERED: SOD CHLORIDE 0.9% 500 ML IV ONE ×2 (03:00→10:00)
[2018-11-02] MEDS: TRIMETHOPRIM/SULFAMETHOX (DS) TAB GTB SCH (08:59)
[2018-11-02] MEDS: ENOXAPARIN 40 MG/0.4 ML SYG SC SCH (09:06)
[2018-11-02] MEDS: ACETAMINOPHEN 325 MG TAB GTB PRN ×3 (09:57→20:21)
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
[2018-11-02] MEDS: SOD CHLORIDE 0.9% 1,000 ML IV SCH ×2 (11:44→12:33)
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
[2018-11-02] MEDS ORDERED: MIDODRINE 5 MG TAB GTB SCH (13:00)
[2018-11-02] MEDS: MIDODRINE 5 MG TAB GTB SCH ×2 (13:28→21:36)
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
[2018-11-02] MEDS: MIRTAZAPINE 15 MG TAB PO SCH (20:21)
[2018-11-03] VITALS (103 sets, daily range): BP systolic 69–135; BP diastolic 41–102; PULSE 64–120; RESP 14–28
[2018-11-03] MEDS: HYDROmorphONE 0.5 MG/0.5 ML SYG IV PRN ×6 (01:06→21:06)
[2018-11-03] MEDS: ACETAMINOPHEN 325 MG TAB GTB PRN ×3 (01:16→15:38)
[2018-11-03] MEDS: MIDODRINE 5 MG TAB GTB SCH ×3 (05:08→21:06)
[2018-11-03] MEDS: LORAZEPAM 1 MG TAB GTB PRN ×3 (05:17→21:07)
[2018-11-03] MEDS: DEXTROSE 5%-0.45% NACL 1,000 ML IV SCH ×2 (05:26→15:37)
--- NOTE | 2018-11-03 06:56 | RADRPT ---
Echocardiogram Report Patient Name: BRIEN LEE Gender: Accession #: Date: 1990 Study Date: 02-Nov-2018 Production Department Supervisor: Laura Rod RUST Location: 631-A Ref. Physician: Quality: Adequate Procedures: Transthoracic echocardiogram with complete 2D, M-Mode, and doppler examination. Indications: Chest Pain. 2D/M Mode Doppler Measurement Value Normal Ranges Measurement Value Normal Ranges LVIDd 2D 3.6 3.5 - 5.6 cm AV Peak Nehemiah 1.3 m/sec LVIDs 2D 2.4 2.1 - 4.1 cm AV Peak PG 7.0 mmHg FS 2D 35.0 % LVOT Peak Nehemiah 1.1 m/sec LVPWd 2D 1.1 0.6 - 1.1 cm LVOT Peak PG 5.0 mmHg IVSd 2D 0.9 0.6 - 1.1 cm MV E Peak Nehemiah 0.9 m/sec IVS/LVPW 2D 0.8 MV A Peak Nehemiah 0.6 m/sec AoR Diam 2D 2.6 2.0 - 3.7 cm MV E/A 1.4 LA/Ao 2D 1 0 - 1 MV Decel Time 113 msec EDV 2D 47.8 cm3 MV E/A 1.4 ESV 2D 13.1 cm3 LA Dimen 2D 2.3 2.3 - 4.0 cm Findings Left Ventricle: Normal left ventricular systolic function. Normal left ventricular cavity size. Normal left ventricular wall thickness. Ejection fraction is visually estimated at 60 %. Tissue Doppler/Mitral Doppler indices are within normal limits. Right Ventricle: Normal right ventricular size. Normal right ventricular systolic function. Left Atrium: The left atrium is normal in size. Right Atrium: The right atrium is normal in size. Mitral Valve: Normal appearance of the mitral valve. Trace mitral regurgitation. Aortic Valve: Normal appearance of the aortic valve. No aortic regurgitation. Tricuspid Valve: Normal appearance of the tricuspid valve. There is trace tricuspid regurgitation. Pulmonic Valve: Normal pulmonic valve appearance. No evidence of pulmonic regurgitation. Pericardium: Normal pericardium with no significant pericardial effusion. Aorta: Normal aortic root. IVC: The IVC is not well visualized. Conclusions Normal left ventricular systolic function. Normal left ventricular cavity size. Normal left ventricular wall thickness. Ejection fraction is visually estimated at 60 %. Tissue Doppler/Mitral Doppler indices are within normal limits. Normal right ventricular size. Normal right ventricular systolic function. Trace mitral regurgitation. No aortic regurgitation. There is trace tricuspid regurgitation. Normal pericardium with no significant pericardial effusion. Electronically Signed By: Delano Gastelum 02-Nov-2018 14:37:28 -0800 Patient Name: BRIEN LEE Study Date: 02-Nov-2018 [id number]
[2018-11-03] MEDS: ENOXAPARIN 40 MG/0.4 ML SYG SC SCH (09:02)
--- NOTE | 2018-11-03 09:35 | CONS ---
Date/Time of Note Date/Time of Note DATE: 11/03/18 TIME: 09:33 Assessment/Plan Assessment/Plan Additional Assessment/Plan Ventilator setting; AC of 14, tidal volume 500, PEEP of 0, 30% FiO2. Patient is currently on Levophed 2.5 mics per minute. Assessment recommendations; 1. Patient with history of HIV and quadriplegia and VDR F admitted to ICU because of element of mild hypotension, and status post adequate fluid resuscitation. 2. History of recent sacral osteomyelitis status post treatment. 3. Status post treatment for pneumonia. 4. Chronic anemia. Continue current supportive care. Increase midodrine to 10 mg 3 times daily. Wean off Levophed as tolerated. Would recommend starting the patient on fen tanyl patch 25 mics per hour. Patient does have history of chronic pain syndrome. Consultation Date/Type/Reason Admit Date/Time Sep 23, 2018 at 18:14 Initial Consult Date 09/25/18 Type of Consultation: Pulmonary/critical care Requesting Provider: MOISES CARLSON MD 24 HR Interval Summary Free Text/Dictation Patient had to be transferred to ICU because of development of mild hypotension. General exam; young male, on ventilator via tracheostomy, awake alert. Curr ently no distress. Exam/Review of Systems Vital Signs Vitals Vital Signs Date Temp Pulse Resp B/P (MAP) Pulse Ox O2 O2 Flow FiO2 Time Delivery Rate 11/03/18 115 20 100 30 09:20 11/03/18 110/68 08:15 (82) 11/03/18 100.3 [employer] 08:00 l Ventilato r Intake and Output 11/02/18 11/02/18 11/03/18 1515:00 23:00 07:00 IntakeIntake Total 797.52 ml 974.39 ml OutputOutput Total 1150 ml 830 ml BalanceBalance -352.48 ml 144.39 ml Exam H EENT exam; supple neck, no JVD. No lymphadenopathy. Midline trachea. No thyromegaly. Tracheostomy placed. Patient has fair dentition. No neck masses. Chest exam; diminished but clear breath sounds. S1-S2 audible, no murmurs. Regular rhythm. Abdomen exam; soft, scaphoid. Nontender. No organomegaly. G-tube in place. Bowel sounds audible. Extremity exam; no peripheral edema. 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 Medications Medications Current Medications Docusate Sodium (Colace Liquid Cup) 100 mg BID PRN GTB CONSTIPATION Last administered on 10/16/18 09:02; Admin Dose 100 MG; Start 10/07/18 at 03:30 Lorazepam (Ativan) 1 mg Q6H PRN GTB ANXIETY Last administered on 11/03/18 05:17; Admin Dose 1 MG; Start 10/09/18 at 20:30 Dextrose/Sodium Chloride 1,000 ml @ 100 mls/hr Q10H IV Last administered on 11/03/18 05:26; Admin Dose 100 MLS/HR; Start 10/12/18 at 20:00 Hydromorphone HCl (Dilaudid) 0.3 mg Q4H PRN IV SEVERE PAIN LEVEL 7-10 Last administered on 11/03/18 09:03; Admin Dose 0.3 MG; Start 10/17/18 at 21:30 Mirtazapine (Remeron) 15 mg HS PO Last administered on 11/02/18 20:21; Admin Dose 15 MG; Start 10/23/18 at 22:00 Enoxaparin Sodium (Lovenox) 40 mg DAILY SC Last administered on 11/03/18 09:02; Admin Dose 40 MG; Start 10/26/18 at 12:00 Acetaminophen (Tylenol Tab) 650 mg Q4H PRN GTB MILD PAIN(1-3)OR ELEVATED TEMP Last administered on 11/03/18 01:16; Admin Dose 650 MG; Start 10/26/18 at 12:00 Miscellaneous Information (*Order Clarification Bulletin) MEDICATION REQUIRES CLARIFICATI... Q8H XX ; Start 10/27/18 at 21:00 Metoprolol Tartrate (Lopressor) 5 mg Q4H PRN IV HR>110 Hold SBP<100; Start 10/30/18 at 13:30 Midodrine (Proamatine) 5 mg Q8 GTB Last administered on 11/03/18 05:08; Admin Dose 5 MG; Start 11/02/18 at 13:30 Norepinephrine 16 mg/Dextrose 500 ml @ 1.88 mls/hr TITRATE IV Last administered on 11/02/18 18:48; Admin Dose 9.38 MLS/HR; Start 11/02/18 at 18:30 Fentanyl (Duragesic 25 Mcg/Hr Patch) 1 patch Q72H TRANSDERM ; Start 11/03/18 at 09:00 Results Result Diagram: 10/31/18 0556 Results 24 hrs Laboratory Tests Test 11/02/18 11:20 Bedside Glucose 96 DELMY HATRMAN Nov 03, 2018 09:35
[2018-11-03] MEDS: DOCUSATE SODIUM 10 MG/ML (10ML CUP) GTB PRN (09:46)
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
--- NOTE | 2018-11-03 11:29 | RADRPT ---
Vent Rate: 108 bpm RR Interval: 0 msec [place] Interval: 138 msec QRS Duration: 86 msec QT Interval: 378 msec QTC Interval: 506 msec P-R-T [place]: 51 - 45 - 70 degrees Sinus tachycardia Otherwise normal ECG Electronically Signed By: Junior De Santiago [id number]
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
[2018-11-03] MEDS: ZYVOX 600 MG TAB PO SCH ×2 (13:15→21:07)
[2018-11-03] MEDS: MEROPENEM 1 GM/50ML(PMX) 50 ML IVPB SCH ×2 (15:37→23:53)
[2018-11-03] MEDS: ALBUTEROL HFA 8 GM INHALER INH PRN ×2 (17:15→19:34)
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
[2018-11-03] MEDS: MIRTAZAPINE 15 MG TAB PO SCH (21:07)
[2018-11-04] VITALS (107 sets, daily range): BP systolic 72–148; BP diastolic 39–98; PULSE 45–99; RESP 13–21
[2018-11-04] MEDS: HYDROmorphONE 0.5 MG/0.5 ML SYG IV PRN ×3 (01:04→09:11)
[2018-11-04] MEDS: DEXTROSE 5%-0.45% NACL 1,000 ML IV SCH ×2 (03:52→13:45)
[2018-11-04] MEDS: ACETAMINOPHEN 325 MG TAB GTB PRN ×2 (03:52→19:53)
[2018-11-04] MEDS: LORAZEPAM 1 MG TAB GTB PRN ×2 (03:53→18:43)
[2018-11-04] MEDS: ALBUTEROL HFA 8 GM INHALER INH PRN ×4 (04:15→19:26)
[2018-11-04] MEDS: MIDODRINE 5 MG TAB GTB SCH ×3 (04:58→21:54)
[2018-11-04] MEDS: MEROPENEM 1 GM/50ML(PMX) 50 ML IVPB SCH ×2 (09:10→21:53)
[2018-11-04] MEDS: ZYVOX 600 MG TAB PO SCH ×2 (09:10→21:54)
--- NOTE | 2018-11-04 09:26 | CONS ---
Date/Time of Note Date/Time of Note DATE: 11/04/18 TIME: 09:23 Consult Date/Type/Reason Admit Date/Time Sep 23, 2018 at 18:14 Initial Consult Date 09/25/18 Type of Consultation: Pulmonary ICU Requesting Provider: MOISES CARLSON MD Subjective Continues low-dose Levophed. Objective Vital Signs Date Temp Pulse Resp B/P (MAP) Pulse Ox O2 O2 Flow FiO2 Time Delivery Rate 11/04/18 55 14 116/82 100 Mechanical 07:00 (93) Ventilator 11/04/18 30 05:21 11/04/18 98.5 04:00 Intake and Output 11/03/18 11/03/18 11/04/18 1515:00 23:00 07:00 IntakeIntake Total 1421.28 ml 1001.87 ml 998.13 ml OutputOutput Total 550 ml 2050 ml 2090 ml BalanceBalance 871.28 ml -1048.13 ml -1091.87 ml Exam GENERAL: Chronically ill-appearing gentleman on mechanical ventilation via tracheostomy VITAL SIGNS: per chart NECK: Supple. No JVD or lymphadenopathy. CARDIAC EXAM: S1, S2. No added sounds or murmurs. CHEST: clear bilaterally, No added sounds, rales or wheezes ABDOMEN: Soft, nontender. No guarding or rebound. EXTREMITIES: No cyanosis, clubbing or edema. NEUROLOGIC: Generalized weakness. Results/Medications Result Diagram: 11/03/18 1412 11/04/18 0450 Results 24 hrs Laboratory Tests Test 11/03/18 14:12 11/04/18 04:50 White Blood Count 11.1 #H Red Blood Count 2.66 L Hemoglobin 8.3 L Hematocrit 26.2 L Mean Corpuscular Volume 98.5 Mean Corpuscular Hemoglobin 31.2 Mean Corpuscular Hemoglobin Concent 31.7 L Red Cell Distribution Width 14.6 H Platelet Count 340 Mean Platelet Volume 8.9 Immature Granulocytes % 0.500 H Neutrophils % 67.1 Lymphocytes % 22.9 Monocytes % 5.7 Eosinophils % 3.3 Basophils % 0.5 Nucleated Red Blood Cells % 0.0 Immature Granulocytes # 0.060 H Neutrophils # 7.4 Lymphocytes # 2.5 Monocytes # 0.6 Eosinophils # 0.4 Basophils # 0.1 Nucleated Red Blood Cells # 0.0 Sodium Level 139 Potassium Level 3.7 Chloride Level 104 Carbon Dioxide Level 30 Anion Gap 5 Blood Urea Nitrogen 8 Creatinine 0.23 L Est Glomerular Filtrat Rate mL/min > 60 Glucose Level 94 Calcium Level 8.8 Medications Current Medications Docusate Sodium (Colace Liquid Cup) 100 mg BID PRN GTB CONSTIPATION Last administered on 11/03/18 09:46; Admin Dose 100 MG; Start 10/07/18 at 03:30 Lorazepam (Ativan) 1 mg Q6H PRN GTB ANXIETY Last administered on 11/04/18 03:53; Admin Dose 1 MG; Start 10/09/18 at 20:30 Dextrose/Sodium Chloride 1,000 ml @ 100 mls/hr Q10H IV Last administered on 11/04/18 03:52; Admin Dose 100 MLS/HR; Start 10/12/18 at 20:00 Hydromorphone HCl (Dilaudid) 0.3 mg Q4H PRN IV SEVERE PAIN LEVEL 7-10 Last administered on 11/04/18 04:57; Admin Dose 0.3 MG; Start 10/17/18 at 21:30 Mirtazapine (Remeron) 15 mg HS PO Last administered on 11/03/18 21:07; Admin Dose 15 MG; Start 10/23/18 at 22:00 Enoxaparin Sodium (Lovenox) 40 mg DAILY SC Last administered on 11/03/18 09:02; Admin Dose 40 MG; Start 10/26/18 at 12:00 Acetaminophen (Tylenol Tab) 650 mg Q4H PRN GTB MILD PAIN(1-3)OR ELEVATED TEMP Last administered on 11/04/18 03:52; Admin Dose 650 MG; Start 10/26/18 at 12:00 Metoprolol Tartrate (Lopressor) 5 mg Q4H PRN IV HR>110 Hold SBP<100; Start 10/30/18 at 13:30 Norepinephrine 16 mg/Dextrose 500 ml @ 1.88 mls/hr TITRATE IV Last adminis tered on 11/02/18 18:48; Admin Dose 9.38 MLS/HR; Start 11/02/18 at 18:30 Fentanyl (Duragesic 25 Mcg/Hr Patch) 1 patch Q72H TRANSDERM Last administered on 11/03/18 11:10; Admin Dose 1 PATCH; Start 11/03/18 at 09:00 Midodrine (Proamatine) 10 mg Q8 GTB Last administered on 11/04/18at 04:58; Admin Dose 10 MG; Start 11/03/18 at 14:00 Linezolid (Zyvox) 600 mg BID PO Last administered on 11/03/18at 21:07; Admin Dose 600 MG; Start 11/03/18 at 12:30 Meropenem/Sodium Chloride 50 ml @ 100 mls/hr Q12 IVPB Last administered on 11/03/18at 23:53; Admin Dose 100 MLS/HR; Start 11/03/18 at 14:00 Albuterol (Ventolin Hfa) 4 puff Q2H PRN INH SHORTNESS OF BREATH Last administered on 11/04/18at 04:15; Admin Dose 4 PUFF; Start 11/03/18 at 15:30 Assessment/Plan Chief Complaint/Hosp Course Assessment 1. Vent dependent respiratory failure 2. Anemia likely of chronic disease no active GI bleeding 3. History of HIV + 4. Sacral osteomyelitis 5. Hypotension likely combination of low-grade sepsis and opiate analgesia. Plan 1. Continue wound care 2. Continue mechanical ventilation 3. Tube feeding as tolerated 4. Wean off pressors as tolerated 5. Continues p.o. intake. Start tube feeding. Continue current supportive care. Prognosis remains guarded. Critical care time 40 minutes. JENNIFER TERRELL MD, [facility] Nov 04, 2018 09:26
[2018-11-04] MEDS: ENOXAPARIN 40 MG/0.4 ML SYG SC SCH (09:27)
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
[2018-11-04] MEDS: HYDROmorphONE 2 MG TAB PO PRN ×3 (13:12→21:54)
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
[2018-11-04] MEDS: ALBUMIN HUMAN 5% 250 ML IV SCH ×2 (18:25→19:50)
[2018-11-04] MEDS: MIRTAZAPINE 15 MG TAB PO SCH (21:54)
[2018-11-05] VITALS (102 sets, daily range): BP systolic 71–141; BP diastolic 44–92; PULSE 55–111; RESP 14–20
[2018-11-05] MEDS: HYDROmorphONE 2 MG TAB PO PRN ×6 (02:16→23:26)
[2018-11-05] MEDS: DEXTROSE 5%-0.45% NACL 1,000 ML IV SCH ×3 (02:17→23:25)
[2018-11-05] MEDS: ALBUTEROL HFA 8 GM INHALER INH PRN ×3 (02:49→16:33)
[2018-11-05] MEDS: LORAZEPAM 1 MG TAB GTB PRN ×2 (05:37→12:04)
[2018-11-05] MEDS: ACETAMINOPHEN 325 MG TAB GTB PRN ×5 (05:38→23:25)
[2018-11-05] MEDS: MIDODRINE 5 MG TAB GTB SCH ×3 (05:38→21:07)
[2018-11-05] MEDS: MEROPENEM 1 GM/50ML(PMX) 50 ML IVPB SCH ×2 (08:37→21:07)
[2018-11-05] MEDS: ZYVOX 600 MG TAB PO SCH ×2 (08:38→21:06)
[2018-11-05] MEDS: ENOXAPARIN 40 MG/0.4 ML SYG SC SCH (08:43)
--- NOTE | 2018-11-05 10:54 | CONS ---
Date/Time of Note Date/Time of Note DATE: 11/05/18 TIME: 10:53 Consult Date/Type/Reason Admit Date/Time Sep 23, 2018 at 18:14 Initial Consult Date 09/25/18 Type of Consultation: Pulmonary ICU Requesting Provider: MOISES CARLSON MD Subjective Still remains vasopressor dependent. Continues low-dose Levophed. IV Dilaudid switch to p.o. Objective Vital Signs Date Temp Pulse Resp B/P (MAP) Pulse Ox O2 O2 Flow FiO2 Time Delivery Rate 11/05/18 84 17 100 30 09:30 11/05/18 98.5 09:16 11/05/18 102/69 08:15 (80) 11/05/18 Mechanical 08:00 Ventilator Trach Collar Intake and Output 11/04/18 11/04/18 11/05/18 1515:00 23:00 07:00 IntakeIntake Total 1139.64 ml 795.04 ml 1045.04 ml OutputOutput Total 1950 ml 575 ml 310 ml BalanceBalance -810.36 ml 220.04 ml 735.04 ml Exam GENERAL: Chronically ill-appearing gentleman on mechanical ventilation via tracheostomy VITAL SIGNS: per chart NECK: Supple. No JVD or lymphadenopathy. CARDIAC EXAM: S1, S2. No added sounds or murmurs. CHEST: clear bilaterally, No added sounds, rales or wheezes ABDOMEN: Soft, nontender. No guarding or rebound. EXTREMITIES: No cyanosis, clubbing or edema. NEUROLOGIC: Generalized weakness. Results/Medications Result Diagram: 11/03/18 1412 11/05/18 0430 Results 24 hrs Laboratory Tests Test 11/05/18 04:30 Sodium Level 140 Potassium Level 4.0 Chloride Level 102 Carbon Dioxide Level 33 H Anion Gap 5 Blood Urea Nitrogen 5 L Creatinine 0.19 L Est Glomerular Filtrat Rate mL/min > 60 Glucose Level 101 Calcium Level 8.8 Medications Current Medications Docusate Sodium (Colace Liquid Cup) 100 mg BID PRN GTB CONSTIPATION Last administered on 11/03/18at 09:46; Admin Dose 100 MG; Start 10/07/18 at 03:30 Lorazepam (Ativan) 1 mg Q6H PRN GTB ANXIETY Last administered on 11/05/18at 05:37; Admin Dose 1 MG; Start 10/09/18 at 20:30 Dextrose/Sodium Chloride 1,000 ml @ 100 mls/hr Q10H IV Last administered on 11/05/18 02:17; Admin Dose 100 MLS/HR; Start 10/12/18 at 20:00 Mirtazapine (Remeron) 15 mg HS PO Last administered on 11/04/18 21:54; Admin Dose 15 MG; Start 10/23/18 at 22:00 Enoxaparin Sodium (Lovenox) 40 mg DAILY SC Last administered on 11/05/18 08:43; Admin Dose 40 MG; Start 10/26/18 at 12:00 Acetaminophen (Tylenol Tab) 650 mg Q4H PRN GTB MILD PAIN(1-3)OR ELEVATED TEMP Last administered on 11/05/18 09:16; Admin Dose 650 MG; Start 10/26/18 at 12:00 Metoprolol Tartrate (Lopressor) 5 mg Q4H PRN IV HR>110 Hold SBP<100; Start 10/30/18 at 13:30 Norepinephrine 16 mg/Dextrose 500 ml @ 1.88 mls/hr TITRATE IV Last administered on 11/02/18 18:48; Admin Dose 9.38 MLS/HR; Start 11/02/18 at 18:30 Fentanyl (Duragesic 25 Mcg/Hr Patch) 1 patch Q72H TRANSDERM Last administered on 11/03/18 11:10; Admin Dose 1 PATCH; Start 11/03/18 at 09:00 Midodrine (Proamatine) 10 mg Q8 GTB Last administered on 11/05/18 05:38; Admin Dose 10 MG; Start 11/03/18 at 14:00 Linezolid (Zyvox) 600 mg BID PO Last administered on 11/05/18 08:38; Admin Dose 600 MG; Start 11/03/18 at 12:30 Meropenem/Sodium Chloride 50 ml @ 100 mls/hr Q12 IVPB Last administered on 11/05/18 08:37; Admin Dose 100 MLS/HR; Start 11/03/18 at 14:00 Albuterol (Ventolin Hfa) 4 puff Q2H PRN INH SHORTNESS OF BREATH Last administered on 11/05/18 02:49; Admin Dose 4 PUFF; Start 11/03/18 at 15:30 Hydromorphone HCl (Dilaudid) 2 mg Q4H PRN PO SEVERE PAIN LEVEL 7-10 Last administered on 11/05/18at 10:31; Admin Dose 2 MG; Start 11/04/18 at 13:00 Assessment/Plan Chief Complaint/Hosp Course Assessment 1. Vent dependent respiratory failure 2. Anemia likely of chronic disease no active GI bleeding 3. History of HIV + 4. Sacral osteomyelitis 5. Hypotension likely combination of low-grade sepsis and opiate analgesia. 6. Dysphagia tolerating 60- right 70% of p.o. diet Plan 1. Continue wound care 2. Continue mechanical ventilation 3. Tube feeding as tolerated 4. Wean off pressors as tolerated 5. Continues p.o. intake. Continue current supportive care. Prognosis remains guarded. Critical care time 40 minutes. JENNIFER TERRELL MD, [facility] Nov 05, 2018 10:54
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
[2018-11-05] MEDS: MIRTAZAPINE 15 MG TAB PO SCH (21:06)
[2018-11-06] VITALS (100 sets, daily range): BP systolic 74–153; BP diastolic 48–102; PULSE 50–96; RESP 12–19
[2018-11-06] MEDS: LORAZEPAM 1 MG TAB GTB PRN ×2 (04:06→15:20)
[2018-11-06] MEDS: HYDROmorphONE 2 MG TAB PO PRN ×5 (04:07→22:30)
[2018-11-06] MEDS: MIDODRINE 5 MG TAB GTB SCH ×3 (05:23→21:10)
[2018-11-06] MEDS: ALBUTEROL HFA 8 GM INHALER INH PRN ×5 (07:37→20:12)
[2018-11-06] MEDS: ZYVOX 600 MG TAB PO SCH ×2 (09:23→20:25)
[2018-11-06] MEDS: MEROPENEM 1 GM/50ML(PMX) 50 ML IVPB SCH ×2 (09:23→20:24)
[2018-11-06] MEDS: ENOXAPARIN 40 MG/0.4 ML SYG SC SCH (09:28)
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
--- NOTE | 2018-11-06 09:33 | CONS ---
Date/Time of Note Date/Time of Note DATE: 11/06/18 TIME: 09:31 Assessment/Plan Assessment/Plan Additional Assessment/Plan Ventilator settings; assist control of 14, tidal volume 500, PEEP of 0, 30% FiO2. Patient is currently on Levophed at 1 shantell per minute. Assessment recommendations; 1. Patient with history of quadriplegia admitted for hypotension, clinically improving. 2. Multiple sacral wounds, on appropriate antimicrobial regimen. 3. Negative HIV. 4. Anemia of chronic disease. Continue current supportive care. Wean down Levophed as tolerated. Antibiotics per ID recommendations. Consultation Date/Type/Reason Admit Date/Time Sep 23, 2018 at 18:14 Initial Consult Date 09/25/18 Type of Consultation: Pulmonary/critical care Requesting Provider: MOISES CARLSON MD 24 HR Interval Summary Free Text/Dictation Patient's condition is improving, still requiring low-dose Levophed. General exam; young male, on ventilator via tracheostomy, awake alert. Currently in no distress. Exam/Review of Systems Vital Signs Vitals Vital Signs Date Temp Pulse Resp B/P (MAP) Pulse Ox O2 O2 Flow FiO2 Time Delivery Rate 11/06/18 56 14 128/86 100 06:15 (100) 11/06/18 Mechanical 06:00 Ventilator 11/06/18 30 05:00 11/06/18 99.1 04:00 Intake and Output 11/05/18 11/05/18 11/06/18 1515:00 23:00 07:00 IntakeIntake Total 1128.14 ml 724.39 ml 1018.75 ml OutputOutput Total 2445 ml 850 ml 710 ml BalanceBalance -1316.86 ml -125.61 ml 308.75 ml Exam H EENT exam; supple neck, no JVD. No lymphadenopathy. Midline trachea. No thyromegaly. Tracheostomy in place. Patient has fair dentition. Chest exam; clear to auscultation. S1-S2 audible, no murmurs. Regular rhythm. Abdomen exam; soft, no organomegaly. G-tube in place. Bowel sounds audible. Back examination; dressing applied over sacrum. Extremity exam; no edema. 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 Medications Medications Current Medications Docusate Sodium (Colace Liquid Cup) 100 mg BID PRN GTB CONSTIPATION Last administered on 11/03/18 09:46; Admin Dose 100 MG; Start 10/07/18 at 03:30 Lorazepam (Ativan) 1 mg Q6H PRN GTB ANXIETY Last administered on 11/06/18 04:06; Admin Dose 1 MG; Start 10/09/18 at 20:30 Dextrose/Sodium Chloride 1,000 ml @ 100 mls/hr Q10H IV Last administered on 11/05/18 23:25; Admin Dose 100 MLS/HR; Start 10/12/18 at 20:00 Mirtazapine (Remeron) 15 mg HS PO Last administered on 11/05/18 21:06; Admin Dose 15 MG; Start 10/23/18 at 22:00 Enoxaparin Sodium (Lovenox) 40 mg DAILY SC Last administered on 11/06/18 09:28; Admin Dose 40 MG; Start 10/26/18 at 12:00 Acetaminophen (Tylenol Tab) 650 mg Q4H PRN GTB MILD PAIN(1-3)OR ELEVATED TEMP Last administered on 11/05/18 23:25; Admin Dose 650 MG; Start 10/26/18 at 12:00 Metoprolol Tartrate (Lopressor) 5 mg Q4H PRN IV HR>110 Hold SBP<100; Start 10/30/18 at 13:30 Norepinephrine 16 mg/Dextrose 500 ml @ 1.88 mls/hr TITRATE IV Last administered on 11/05/18 17:13; Admin Dose 1.88 MLS/HR; Start 11/02/18 at 18:30 Fentanyl (Duragesic 25 Mcg/Hr Patch) 1 patch Q72H TRANSDERM Last administered on 11/06/18 09:27; Admin Dose 1 PATCH; Start 11/03/18 at 09:00 Midodrine (Proamatine) 10 mg Q8 GTB Last administered on 11/06/18 05:23; Admin Dose 10 MG; Start 11/03/18 at 14:00 Linezolid (Zyvox) 600 mg BID PO Last administered on 11/06/18 09:23; Admin Dose 600 MG; Start 11/03/18 at 12:30 Meropenem/Sodium Chloride 50 ml @ 100 mls/hr Q12 IVPB Last administered on 12/6/18at 09:23; Admin Dose 100 MLS/HR; Start 11/03/18 at 14:00 Albuterol (Ventolin Hfa) 4 puff Q2H PRN INH SHORTNESS OF BREATH Last administered on 11/06/18at 07:37; Admin Dose 4 PUFF; Start 11/03/18 at 15:30 Hydromorphone HCl (Dilaudid) 2 mg Q4H PRN PO SEVERE PAIN LEVEL 7-10 Last administered on 11/06/18at 04:07; Admin Dose 2 MG; Start 11/04/18 at 13:00 Results Result Diagram: 11/06/18 0400 11/06/18 0438 Results 24 hrs Laboratory Tests Test 11/06/18 04:00 11/06/18 04:38 White Blood Count 7.3 # Red Blood Count 3.05 L Hemoglobin 9.3 L Hematocrit 29.5 L Mean Corpuscular Volume 96.7 Mean Corpuscular Hemoglobin 30.5 Mean Corpuscular Hemoglobin Concent 31.5 L Red Cell Distribution Width 13.9 Platelet Count 409 # Mean Platelet Volume 9.0 Immature Granulocytes % 0.300 Neutrophils % 59.3 Lymphocytes % 26.2 Monocytes % 6.3 Eosinophils % 6.9 Basophils % 1.0 Nucleated Red Blood Cells % 0.0 Immature Granulocytes # 0.020 Neutrophils # 4.3 Lymphocytes # 1.9 Monocytes # 0.5 Eosinophils # 0.5 Basophils # 0.1 Nucleated Red Blood Cells # 0.0 Sodium Level 140 Potassium Level 4.2 Chloride Level 99 Carbon Dioxide Level 35 H Anion Gap 6 Blood Urea Nitrogen 10 Creatinine 0.25 L Est Glomerular Filtrat Rate mL/min > 60 Glucose Level 94 Calcium Level 9.1 DELMY HARTMAN Nov 06, 2018 09:33
[2018-11-06] MEDS: DEXTROSE 5%-0.45% NACL 1,000 ML IV SCH ×2 (11:03→21:10)
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
[2018-11-06] MEDS: ACETAMINOPHEN 325 MG TAB GTB PRN ×2 (13:14→20:24)
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
[2018-11-06] MEDS: MIRTAZAPINE 15 MG TAB PO SCH (20:25)
[2018-11-07] VITALS (66 sets, daily range): BP systolic 69–146; BP diastolic 47–94; PULSE 48–99; RESP 13–22
[2018-11-07] MEDS: HYDROmorphONE 2 MG TAB PO PRN ×5 (02:52→20:57)
[2018-11-07] MEDS: ACETAMINOPHEN 325 MG TAB GTB PRN ×3 (04:13→18:48)
[2018-11-07] MEDS: MIDODRINE 5 MG TAB GTB SCH ×3 (05:40→21:01)
[2018-11-07] MEDS: DEXTROSE 5%-0.45% NACL 1,000 ML IV SCH ×2 (06:31→18:48)
[2018-11-07] MEDS: ALBUTEROL HFA 8 GM INHALER INH PRN (08:12)
[2018-11-07] MEDS: ZYVOX 600 MG TAB PO SCH ×2 (08:32→20:57)
[2018-11-07] MEDS: MEROPENEM 1 GM/50ML(PMX) 50 ML IVPB SCH ×2 (08:32→20:57)
[2018-11-07] MEDS: LORAZEPAM 1 MG TAB GTB PRN (08:32)
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
[2018-11-07] MEDS: ENOXAPARIN 40 MG/0.4 ML SYG SC SCH (09:01)
--- NOTE | 2018-11-07 09:51 | CONS ---
Date/Time of Note Date/Time of Note DATE: 11/07/18 TIME: 09:50 Consult Date/Type/Reason Admit Date/Time Sep 23, 2018 at 18:14 Initial Consult Date 09/25/18 Type of Consultation: Pulmonary ICU Requesting Provider: MOISES CARLSON MD Subjective Patient remains comfortable this morning. Requesting IV Dilaudid instead of p.o. Currently off vasopressors tolerating p.o. diet. Objective Vital Signs Date Temp Pulse Resp B/P (MAP) Pulse Ox O2 O2 Flow FiO2 Time Delivery Rate 11/07/18 57 19 116/75 100 Mechanical 09:00 (89) Ventilator 11/07/18 98.5 08:00 11/07/18 30 04:50 Intake and Output 11/06/18 11/06/18 11/07/18 1515:00 23:00 07:00 IntakeIntake Total 1991.91 ml 1145.01 ml 831.28 ml OutputOutput Total 1175 ml 1425 ml 1000 ml BalanceBalance 816.91 ml -279.99 ml -168.72 ml Exam GENERAL: Chronically ill-appearing gentleman on mechanical ventilation via tracheostomy VITAL SIGNS: per chart NECK: Supple. No JVD or lymphadenopathy. CARDIAC EXAM: S1, S2. No added sounds or murmurs. CHEST: clear bilaterally, No added sounds, rales or wheezes ABDOMEN: Soft, nontender. No guarding or rebound. EXTREMITIES: No cyanosis, clubbing or edema. NEUROLOGIC: Generalized weakness. Results/Medications Result Diagram: 11/07/18 0411 11/07/18 0700 Results 24 hrs Laboratory Tests Test 11/07/18 04:11 11/07/18 07:00 White Blood Count 9.0 # Red Blood Count 3.01 L Hemoglobin 9.3 L Hematocrit 29.0 L Mean Corpuscular Volume 96.3 Mean Corpuscular Hemoglobin 30.9 Mean Corpuscular Hemoglobin Concent 32.1 Red Cell Distribution Width 14.0 Platelet Count 426 H Mean Platelet Volume 8.8 Immature Granulocytes % 0.400 Neutrophils % 60.5 Lymphocytes % 25.6 Monocytes % 5.7 Eosinophils % 6.8 Basophils % 1.0 Nucleated Red Blood Cells % 0.0 Immature Granulocytes # 0.040 H Neutrophils # 5.4 Lymphocytes # 2.3 Monocytes # 0.5 Eosinophils # 0.6 H Basophils # 0.1 Nucleated Red Blood Cells # 0.0 Sodium Level 139 139 Potassium Level 4.4 4.0 Chloride Level 100 100 Carbon Dioxide Level 32 H 31 Anion Gap 7 8 Blood Urea Nitrogen 11 11 Creatinine 0.26 L 0.26 L Est Glomerular Filtrat Rate mL/min > 60 > 60 Glucose Level 92 95 Calcium Level 9.1 9.3 Total Bilirubin 0.2 Direct Bilirubin 0.00 Indirect Bilirubin 0.2 Aspartate Amino Transf (AST/SGOT) 23 Alanine Aminotransferase (ALT/SGPT) 41 Alkaline Phosphatase 137 H Total Protein 5.9 L Albumin 2.7 L Globulin 3.20 Albumin/Globulin Ratio 0.84 Medications Current Medications Docusate Sodium (Colace Liquid Cup) 100 mg BID PRN GTB CONSTIPATION Last administered on 11/03/18 09:46; Admin Dose 100 MG; Start 10/07/18 at 03:30 Lorazepam (Ativan) 1 mg Q6H PRN GTB ANXIETY Last administered on 11/07/18 08:32; Admin Dose 1 MG; Start 10/09/18 at 20:30 Dextrose/Sodium Chloride 1,000 ml @ 100 mls/hr Q10H IV Last administered on 11/07/18 06:31; Admin Dose 100 MLS/HR; Start 10/12/18 at 20:00 Mirtazapine (Remeron) 15 mg HS PO Last administered on 11/06/18 20:25; Admin Dose 15 MG; Start 10/23/18 at 22:00 Enoxaparin Sodium (Lovenox) 40 mg DAILY SC Last administered on 11/07/18 09:01; Admin Dose 40 MG; Start 10/26/18 at 12:00 Acetaminophen (Tylenol Tab) 650 mg Q4H PRN GTB MILD PAIN(1-3)OR ELEVATED TEMP Last administered on 11/07/18 04:13; Admin Dose 650 MG; Start 10/26/18 at 12:00 Metoprolol Tartrate (Lopressor) 5 mg Q4H PRN IV HR>110 Hold SBP<100; Start at 13:30 Norepinephrine 16 mg/Dextrose 500 ml @ 1.88 mls/hr TITRATE IV Last administered on 11/05/18 17:13; Admin Dose 1.88 MLS/HR; Start 11/02/18 at 18:30 Fentanyl (Duragesic 25 Mcg/Hr Patch) 1 patch Q72H TRANSDERM Last administered on 11/06/18 09:27; Admin Dose 1 PATCH; Start 11/03/18 at 09:00 Linezolid (Zyvox) 600 mg BID PO Last administered on 11/07/18 08:32; Admin Dose 600 MG; Start 11/03/18 at 12:30 Meropenem/Sodium Chloride 50 ml @ 100 mls/hr Q12 IVPB Last administered on 1 01/08/18 08:32; Admin Dose 100 MLS/HR; Start 11/03/18 at 14:00 Albuterol (Ventolin Hfa) 4 puff Q2H PRN INH SHORTNESS OF BREATH Last administered on 11/07/18 08:12; Admin Dose 4 PUFF; Start 11/03/18 at 15:30 Hydromorphone HCl (Dilaudid) 2 mg Q4H PRN PO SEVERE PAIN LEVEL 7-10 Last administered on 11/07/18 07:07; Admin Dose 2 MG; Start 11/04/18 at 13:00 Midodrine (Proamatine) 20 mg Q8 GTB Last administered on 11/07/18 05:40; Admin Dose 20 MG; Start 11/06/18 at 14:00 Assessment/Plan Chief Complaint/Hosp Course Assessment 1. Vent dependent respiratory failure 2. Anemia likely of chronic disease no active GI bleeding 3. History of HIV + 4. Sacral osteomyelitis 5. Hypotension likely combination of low-grade sepsis and opiate analgesia. Currently stable off vasopressors on midodrine 6. Dysphagia tolerating 60- right 70% of p.o. diet Plan 1. Continue wound care 2. Continue mechanical ventilation 3. Tube feeding as tolerated 4. Continue Midodrin 5. Continues p.o. intake. Continue current supportive care. Prognosis remains guarded. Critical care time 40 minutes. Transfer to telemetry JENNIFER TERRELL MD[facility] Nov 07, 2018 09:51
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
[2018-11-07] MEDS: MIRTAZAPINE 15 MG TAB PO SCH (20:57)
[2018-11-08] VITALS (67 sets, daily range): BP systolic 72–153; BP diastolic 42–96; PULSE 39–84; RESP 13–18
[2018-11-08] MEDS: ALBUTEROL HFA 8 GM INHALER INH PRN ×4 (00:02→17:40)
[2018-11-08] MEDS: ACETAMINOPHEN 325 MG TAB GTB PRN ×3 (00:46→12:56)
[2018-11-08] MEDS: LORAZEPAM 1 MG TAB GTB PRN ×4 (00:46→23:09)
[2018-11-08] MEDS: HYDROmorphONE 2 MG TAB PO PRN ×5 (02:59→23:08)
[2018-11-08] MEDS: MIDODRINE 5 MG TAB GTB SCH ×3 (05:43→21:48)
[2018-11-08] MEDS: DEXTROSE 5%-0.45% NACL 1,000 ML IV SCH ×3 (05:47→21:55)
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
[2018-11-08] MEDS ORDERED: MIDODRINE 5 MG TAB PEG ONE (08:00)
[2018-11-08] MEDS: ZYVOX 600 MG TAB PO SCH ×2 (09:18→21:45)
[2018-11-08] MEDS: MEROPENEM 1 GM/50ML(PMX) 50 ML IVPB SCH ×2 (09:18→21:45)
[2018-11-08] MEDS: ENOXAPARIN 40 MG/0.4 ML SYG SC SCH (09:53)
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
[2018-11-08] MEDS: KETOCONAZOLE 2% SHAMPOO 120 ML BTL TOP SCH ×2 (12:00→21:00)
--- NOTE | 2018-11-08 14:17 | CONS ---
Date/Time of Note Date/Time of Note DATE: 11/08/18 TIME: 14:15 Consult Date/Type/Reason Admit Date/Time Sep 23, 2018 at 18:14 Initial Consult Date 09/25/18 Type of Consultation: Pulmonary ICU Requesting Provider: MOISES CARLSON MD Subjective No events. Doing well off levophed gtt. Objective Vital Signs Date Temp Pulse Resp B/P (MAP) Pulse Ox O2 O2 Flow FiO2 Time Delivery Rate 11/08/18 59 12:00 11/08/18 13 109/81 100 Mechanical 11:00 (90) Ventilator 11/08/18 97.8 08:00 11/08/18 30 04:55 Intake and Output 11/07/18 11/07/18 11/08/18 1515:00 23:00 07:00 IntakeIntake Total 1250 ml 755.64 ml 730.60 ml OutputOutput Total 1050 ml 1300 ml 700 ml BalanceBalance 200 ml -544.36 ml 30.60 ml Exam GENERAL: Chronically ill-appearing gentleman on mechanical ventilation via tracheostomy VITAL SIGNS: per chart NECK: Supple. No JVD or lymphadenopathy. CARDIAC EXAM: S1, S2. No added sounds or murmurs. CHEST: clear bilaterally, No added sounds, rales or wheezes ABDOMEN: Soft, nontender. No guarding or rebound. EXTREMITIES: No cyanosis, clubbing or edema. NEUROLOGIC: Generalized weakness. Results/Medications Result Diagram: 11/08/18 0545 11/08/18 0545 Results 24 hrs Laboratory Tests Test 11/08/18 05:45 White Blood Count 8.8 Red Blood Count 3.16 L Hemoglobin 9.9 L Hematocrit 30.8 L Mean Corpuscular Volume 97.5 Mean Corpuscular Hemoglobin 31.3 Mean Corpuscular Hemoglobin Concent 32.1 Red Cell Distribution Width 14.0 Platelet Count 465 H Mean Platelet Volume 8.6 Immature Granulocytes % 0.500 H Neutrophils % 62.8 Lymphocytes % 23.4 Monocytes % 5.5 Eosinophils % 6.7 Basophils % 1.1 Nucleated Red Blood Cells % 0.0 Immature Granulocytes # 0.040 H Neutrophils # 5.5 Lymphocytes # 2.1 Monocytes # 0.5 Eosinophils # 0.6 H Basophils # 0.1 Nucleated Red Blood Cells # 0.0 Sodium Level 141 Potassium Level 4.2 Chloride Level 103 Carbon Dioxide Level 30 Anion Gap 8 Blood Urea Nitrogen 11 Creatinine 0.26 L Est Glomerular Filtrat Rate mL/min > 60 Glucose Level 91 Calcium Level 9.3 Medications Current Medications Docusate Sodium (Colace Liquid Cup) 100 mg BID PRN GTB CONSTIPATION Last administered on 11/03/18 09:46; Admin Dose 100 MG; Start 10/07/18 at 03:30 Lorazepam (Ativan) 1 mg Q6H PRN GTB ANXIETY Last administered on 11/08/18 11:04; Admin Dose 1 MG; Start 10/09/18 at 20:30 Dextrose/Sodium Chloride 1,000 ml @ 100 mls/hr Q10H IV Last administered on 11/08/18 05:47; Admin Dose 100 MLS/HR; Start 10/12/18 at 20:00 Mirtazapine (Remeron) 15 mg HS PO Last administered on 11/07/18 20:57; Admin Dose 15 MG; Start 10/23/18 at 22:00 Enoxaparin Sodium (Lovenox) 40 mg DAILY SC Last administered on 11/08/18 09:53; Admin Dose 40 MG; Start 10/26/18 at 12:00 Acetaminophen (Tylenol Tab) 650 mg Q4H PRN GTB MILD PAIN(1-3)OR ELEVATED TEMP Last administered on 11/08/18 12:56; Admin Dose 650 MG; Start 10/26/18 at 12:00 Metoprolol Tartrate (Lopressor) 5 mg Q4H PRN IV HR>110 Hold SBP<100; Start 10/30/18 at 13:30 Fentanyl (Duragesic 25 Mcg/Hr Patch) 1 patch Q72H TRANSDERM Last administered on 11/06/18 09:27; Admin Dose 1 PATCH; Start 11/03/18 at 09:00 Linezolid (Zyvox) 600 mg BID PO Last administered on 11/08/18 09:18; Admin Dose 600 MG; Start 11/03/18 at 12:30 Meropenem/Sodium Chloride 50 ml @ 100 mls/hr Q12 IVPB Last administered on 11/08/18 09:18; Admin Dose 100 MLS/HR; Start 11/03/18 at 14:00 Albuterol (Ventolin Hfa) 4 puff Q2H PRN INH SHORTNESS OF BREATH Last administered on 11/08/18at 13:54; Admin Dose 4 PUFF; Start 11/03/18 at 15:30 Hydromorphone HCl (Dilaudid) 2 mg Q4H PRN PO SEVERE PAIN LEVEL 7-10 Last administered on 11/08/18at 09:18; Admin Dose 2 MG; Start 11/04/18 at 13:00 Norepinephrine 16 mg/Dextrose 500 ml @ 1.88 mls/hr TITRATE IV ; Start 11/08/18 at 08:00 Midodrine (Proamatine) 30 mg Q8 GTB ; Start 11/08/18 at 14:00 Ketoconazole (Nizoral Shampoo) 1 applic Q12 TOP ; Start 11/08/18 at 12:00 Betamethasone/ Clotrimazole (Lotrisone Cr) 1 applic BID TOP ; Start 11/08/18 at 21:00 Assessment/Plan Additional Assessment/Plan IMP: 1. Vent dependent respiratory failure 2. Anemia likely of chronic disease no active GI bleeding 3. History of HIV + 4. Sacral osteomyelitis 5. Hypotension likely combination of low-grade sepsis and opiate analgesia. Currently stable off vasopressors on midodrine 6. Dysphagia tolerating 60- right 70% of p.o. diet RECS: 1. Continue wound care 2. Mechanical ventilation 3. Tube feeding as tolerated 4. Continue Midodrine/okay to maintain lower MAPS Continue current supportive care. Prognosis remains guarded. Critical care time 40 minutes. SHASHA SAVAGE MD Nov 08, 2018 14:17
[2018-11-08] MEDS: ACETAMINOPHEN 650MG/20.3ML CUP GTB PRN ×2 (17:09→21:45)
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
[2018-11-08] MEDS: BETAMETHASONE/CLOTRIMAZOLE 15 GM CR TOP SCH (21:00)
[2018-11-08] MEDS: MIRTAZAPINE 15 MG TAB PO SCH (21:46)
[2018-11-09] VITALS (25 sets, daily range): BP systolic 79–112; BP diastolic 49–74; PULSE 55–109; RESP 14–20
[2018-11-09] MEDS: ALBUTEROL HFA 8 GM INHALER INH PRN ×6 (02:48→20:49)
[2018-11-09] MEDS: HYDROmorphONE 2 MG TAB PO PRN ×5 (03:11→20:45)
[2018-11-09] MEDS: ACETAMINOPHEN 650MG/20.3ML CUP GTB PRN ×4 (03:11→18:39)
[2018-11-09] MEDS: MIDODRINE 5 MG TAB GTB SCH ×3 (05:16→21:17)
[2018-11-09] MEDS: LORAZEPAM 1 MG TAB GTB PRN ×2 (05:16→14:09)
[2018-11-09] MEDS: ONDANSETRON 4 MG INJ IV PRN (06:29)
[2018-11-09] MEDS: BETAMETHASONE/CLOTRIMAZOLE 15 GM CR TOP SCH ×2 (09:16→21:00)
[2018-11-09] MEDS: AL HYDROX/MG HYDROX/SIMETH 30 ML CUP PO PRN (09:16)
[2018-11-09] MEDS: KETOCONAZOLE 2% SHAMPOO 120 ML BTL TOP SCH ×2 (09:17→21:00)
[2018-11-09] MEDS: ZYVOX 600 MG TAB PO SCH ×2 (09:17→20:46)
[2018-11-09] MEDS: ENOXAPARIN 40 MG/0.4 ML SYG SC SCH (09:21)
[2018-11-09] MEDS: MEROPENEM 1 GM/50ML(PMX) 50 ML IVPB SCH ×2 (09:24→20:46)
[2018-11-09] MEDS: DEXTROSE 5%-0.45% NACL 1,000 ML IV SCH ×2 (09:24→21:18)
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
--- NOTE | 2018-11-09 12:39 | CONS ---
Date/Time of Note Date/Time of Note DATE: 11/09/18 TIME: 12:34 Assessment/Plan Assessment/Plan Chief Complaint/Hosp Course ID PROGRESS NOTE CURRENT ABX: DAY # => Zyvox + Merrem s/p BACTRIM + Tobra INH s/p Zyvox #5 + Merrem #7 s/p Vanco IV + Cefepime 01/10/18 0638 11/09/18 0638 24H INTERVAL SUMMARY * Recurrent sepsis -- spiking temp > 102, mild tachycardia ==> Will order BCx via PICC, UA + Urine Cx today * Patient refuses wound care, refused to be turned * INDWELLINGS: Trach, PEG, right-sided PICC line, Patel catheter. * MICROBIOLOGY: * 11/03 BCx (-), 11/03 Urine (-) * Wound cultures growing VRE Klebsiella pneumoniae ESBL, gram-negative rods * DIAGNOSTICS: * 11/06/18 CXR: 1. Consolidative infiltrates and/or atelectasis in the right left lower lobes.2. Small right pleural effusion.3. Satisfactory positioning of the PICC line catheter and tracheostomy tube. MICRO * 10/17/18 [facility] RESPIRATORY CULTURE Final Organism 1 SERRATIA MARCESCENS QUANTITY 2+ Organism 2 ACHROMOBACTER SPECIES QUANTITY 1+ ACHROMOBACTER SPECIES: No definitve guidelines. Potentially active agents include mezlocillin, piperacillin, ticarcillin/clavulanic acid, ceftazidime, imipenem, trimethoprim/sulfamethoxazole, and quinolones. [facility] RX --------- --- CEFEPIME <=1 S CEFOTAXIME R CIPROFLOXACIN 2 I GENTAMICIN <=1 S IMIPENEM S LEVOFLOXACIN 4 I TOBRAMYCIN 2 S TRIMETHOPRIM/SULFAMETHOXAZOLE <=20 S PIPERACILLIN/TAZOBACTAM I * 10/16/18 sacral decub: WOUND CULTURE Final Organism 1 ESCHERICHIA COLI QUANTITY SCANT GROWTH Organism 2 K PNEUMO ESBL QUANTITY SCANT GROWTH . MULTI DRUG RESISTANT ORGANISM Organism 3 PSEUDOMONAS SPECIES QUANTITY RARE Organism 4 VANCO RESISTANT ENTEROCOCCUS QUANTITY SCANT GROWTH . MULTI DRUG RESISTANT ORGANISM PHYSICAL EXAMINATION: GENERAL: Afebrile, VSS, HEENT: AT, NC, anicteric == worsening facial seborrheic dermatitis NECK: Supple, trach-> secure CHEST: Equal chest rise bilaterally, without dyspnea on observation HEART: Pulse RRR ABDOMEN: Soft / NT EXTREMITIES: Warm, dry, BLEXT atrophy + contracted with multiple pressure sores. SKIN: No rash, mutiple tattoos, decubs = see photos ID ASSESSMENT 28 yo M admit with: 1. Recurrent sepsis -- spiking temp > 102, mild tachycardia ==> Will order BCx via PICC, UA + Urine Cx today 11/09/18 2. Chronic respiratory failure. 3. Aspiration HCAP = VAP * Retained secretions w/mucous * Dysphagia w/peg 4. Hx of UTI -- indwelling FC 5. Multiple chronic wounds status post 8 weeks antibiotics for sacral osteomyelitis. 6. Worsening facial seborrheic dermatitis * Rx initiated 11/08/18 == >Ketoconazole Shampoo followed by Lotrisone topical. 7. Negative HIV=> HIV RNA by PCR on previous admission negative (-)MRSA Nares ABX ALLERGIES: NKDA INVASIVES: PICC, Trach, Peg, FC CURRENT ABX: DAY == Zyvox + Merrem s/p BACTRIM + Tobra INH s/p Zyvox #5 + Merrem #7 s/p Vanco IV + Cefepime ID RECOMMENDATIONS/PLAN: Recurrent sepsis -- spiking temp > 102, mild tachycardia ==> Will order BCx via PICC, UA + Urine Cx today 11/09/18 . . Consultation Date/Type/Reason Admit Date/Time Sep 23, 2018 at 18:14 Initial Consult Date 09/25/18 Type of Consult ID Requesting Provider: MOISES CARLSON MD Exam/Review of Systems Vital Signs Vitals Vital Signs Date Temp Pulse Resp B/P (MAP) Pulse Ox O2 O2 Flow FiO2 Time Delivery Rate 11/09/18 100.9 12:13 11/09/18 77 15 100 30 11:28 11/09/18 112/74 Mechan[place] 07:29 (87) l Ventilato r Intake and Output 11/08/18 11/08/18 11/09/18 1515:00 23:00 07:00 IntakeIntake Total 1320 ml 550 ml 900 ml OutputOutput Total 800 ml 320 ml 1000 ml BalanceBalance 520 ml 230 ml -100 ml Medications Medications Current Medications Docusate Sodium (Colace Liquid Cup) 100 mg BID PRN GTB CONSTIPATION Last administered on 11/03/18 09:46; Admin Dose 100 MG; Start 10/07/18 at 03:30 Lorazepam (Ativan) 1 mg Q6H PRN GTB ANXIETY Last administered on 11/09/18 05:16; Admin Dose 1 MG; Start 10/09/18 at 20:30 Dextrose/Sodium Chloride 1,000 ml @ 100 mls/hr Q10H IV Last administered on 11/09/18 09:24; Admin Dose 100 MLS/HR; Start 10/12/18 at 20:00 Mirtazapine (Remeron) 15 mg HS PO Last administered on 11/08/18 21:46; Admin Dose 15 MG; Start 10/23/18 at 22:00 Enoxaparin Sodium (Lovenox) 40 mg DAILY SC Last administered on 11/09/18 09:21; Admin Dose 40 MG; Start 10/26/18 at 12:00 Metoprolol Tartrate (Lopressor) 5 mg Q4H PRN IV HR>110 Hold SBP<100; Start 10/30/18 at 13:30 Fentanyl (Duragesic 25 Mcg/Hr Patch) 1 patch Q72H TRANSDERM Last administered on 11/09/18 10:28; Admin Dose 1 PATCH; Start 11/03/18 at 09:00 Linezolid (Zyvox) 600 mg BID PO Last administered on 11/09/18 09:17; Admin Dose 600 MG; Start 11/03/18 at 12:30 Meropenem/Sodium Chloride 50 ml @ 100 mls/hr Q12 IVPB Last administered on 11/09/18 09:24; Admin Dose 100 MLS/HR; Start 11/03/18 at 14:00 Albuterol (Ventolin Hfa) 4 puff Q2H PRN INH SHORTNESS OF BREATH Last administered on 11/09/18 09:35; Admin Dose 4 PUFF; Start 11/03/18 at 15:30 Hydromorphone HCl (Dilaudid) 2 mg Q4H PRN PO SEVERE PAIN LEVEL 7-10 Last administered on 11/09/18 11:24; Admin Dose 2 MG; Start 11/04/18 at 13:00 Midodrine (Proamatine) 30 mg Q8 GTB Last administered on 11/09/18 05:16; Admin Dose 30 MG; Start 11/08/18 at 14:00 Ketoconazole (Nizoral Shampoo) 1 applic Q12 TOP Last administered on 11/09/18at 09:17; Admin Dose 1 APPLIC; Start 11/08/18 at 12:00 Betamethasone/ Clotrimazole (Lotrisone Cr) 1 applic BID TOP Last administered on 11/09/18at 09:16; Admin Dose 1 APPLIC; Start 11/08/18 at 21:00 Acetaminophen (Tylenol Liquid) 650 mg Q4H PRN GTB MILD PAIN(1-3)OR ELEVATED TEMP Last administered on 11/09/18at 11:23; Admin Dose 650 MG; Start 11/08/18 at 15:30 Ondansetron HCl (Zofran Inj) 4 mg Q6H PRN IV NAUSEA AND/OR VOMITING Last administered on 11/09/18at 06:29; Admin Dose 4 MG; Start 11/09/18 at 06:30 Pantoprazole (Protonix Tab) 40 mg DAILY@06 PO ; Start 11/10/18 at 06:00 Al Hydrox/Mg Hydrox/Simethicone (Mag-Al Plus) 30 ml Q6H PRN PO GASTROINTESTINAL UPSET Last administered on 11/09/18at 09:16; Admin Dose 30 ML; Start 11/09/18 at 09:00 Results Result Diagram: 11/09/18 0611/09/18 0638 Results 24 hrs Laboratory Tests Test 11/09/18 06:38 White Blood Count 12.3 #H Red Blood Count 3.06 L Hemoglobin 9.5 L Hematocrit 30.1 L Mean Corpuscular Volume 98.4 Mean Corpuscular Hemoglobin 31.0 Mean Corpuscular Hemoglobin Concent 31.6 L Red Cell Distribution Width 14.1 Platelet Count 515 H Mean Platelet Volume 8.7 Immature Granulocytes % 0.200 Neutrophils % 74.8 Lymphocytes % 16.2 Monocytes % 5.5 Eosinophils % 2.4 Basophils % 0.9 Nucleated Red Blood Cells % 0.0 Immature Granulocytes # 0.030 Neutrophils # 9.2 H Lymphocytes # 2.0 Monocytes # 0.7 Eosinophils # 0.3 Basophils # 0.1 Nucleated Red Blood Cells # 0.0 Sodium Level 139 Potassium Level 4.6 Chloride Level 104 Carbon Dioxide Level 28 Anion Gap 7 Blood Urea Nitrogen 12 Creatinine 0.24 L Est Glomerular Filtrat Rate mL/min > 60 Glucose Level 91 Calcium Level 9.2 BENIGNO BHARDWAJ NP Nov 09, 2018 12:39
--- NOTE | 2018-11-09 15:09 | CONS ---
Date/Time of Note Date/Time of Note DATE: 11/09/18 TIME: 15:07 Consult Date/Type/Reason Admit Date/Time Sep 23, 2018 at 18:14 Initial Consult Date 09/25/18 Type of Consultation: Pulmonary Requesting Provider: MOISES CARLSON MD Subjective Febrile overnight. On the vent. Appears comfortable. Objective Vital Signs Date Temp Pulse Resp B/P (MAP) Pulse Ox O2 O2 Flow FiO2 Time Delivery Rate 11/09/18 86 13:20 11/09/18 15 100 30 13:10 11/09/18 100.9 12:13 11/09/18 105/70 [place] 12:00 (82) l Ventilato r Intake and Output 11/08/18 11/08/18 11/09/18 1515:00 23:00 07:00 IntakeIntake Total 1320 ml 550 ml 900 ml OutputOutput Total 800 ml 320 ml 1000 ml BalanceBalance 520 ml 230 ml -100 ml Exam GENERAL: Chronically ill-appearing gentleman on mechanical ventilation via tracheostomy NECK: Supple. No JVD or lymphadenopathy. CARDIAC EXAM: S1, S2. No added sounds or murmurs. CHEST: clear bilaterally, No added sounds, rales or wheezes ABDOMEN: Soft, nontender. No guarding or rebound. EXTREMITIES: No cyanosis, clubbing or edema. NEUROLOGIC: Generalized weakness. Results/Medications Result Diagram: 11/09/18 0638 11/09/18 0638 Results 24 hrs Laboratory Tests Test 11/09/18 06:38 11/09/18 13:15 White Blood Count 12.3 #H Red Blood Count 3.06 L Hemoglobin 9.5 L Hematocrit 30.1 L Mean Corpuscular Volume 98.4 Mean Corpuscular Hemoglobin 31.0 Mean Corpuscular Hemoglobin Concent 31.6 L Red Cell Distribution Width 14.1 Platelet Count 515 H Mean Platelet Volume 8.7 Immature Granulocytes % 0.200 Neutrophils % 74.8 Lymphocytes % 16.2 Monocytes % 5.5 Eosinophils % 2.4 Basophils % 0.9 Nucleated Red Blood Cells % 0.0 Immature Granulocytes # 0.030 Neutrophils # 9.2 H Lymphocytes # 2.0 Monocytes # 0.7 Eosinophils # 0.3 Basophils # 0.1 Nucleated Red Blood Cells # 0.0 Sodium Level 139 Potassium Level 4.6 Chloride Level 104 Carbon Dioxide Level 28 Anion Gap 7 Blood Urea Nitrogen 12 Creatinine 0.24 L Est Glomerular Filtrat Rate mL/min > 60 Glucose Level 91 Calcium Level 9.2 Urine Color YELLOW Urine Clarity SLIGHTLY CLOUDY A Urine pH 7.0 Urine Specific [place] 1.017 Urine Ketones NEGATIVE Urine Nitrite NEGATIVE Urine Bilirubin NEGATIVE Urine Urobilinogen 1+ H Urine Leukocyte Esterase NEGATIVE Urine Microscopic RBC > 182 H Urine Microscopic WBC 14 H Urine Bacteria FEW A Urine Hemoglobin 3+ H Urine Glucose NEGATIVE Urine Total Protein NEGATIVE Medications Current Medications Docusate Sodium (Colace Liquid Cup) 100 mg BID PRN GTB CONSTIPATION Last administered on 11/03/18 09:46; Admin Dose 100 MG; Start 10/07/18 at 03:30 Lorazepam (Ativan) 1 mg Q6H PRN GTB ANXIETY Last administered on 11/09/18 14:09; Admin Dose 1 MG; Start 10/09/18 at 20:30 Dextrose/Sodium Chloride 1,000 ml @ 100 mls/hr Q10H IV Last administered on 11/09/18 09:24; Admin Dose 100 MLS/HR; Start 10/12/18 at 20:00 Mirtazapine (Remeron) 15 mg HS PO Last administered on 11/08/18 21:46; Admin Dose 15 MG; Start 10/23/18 at 22:00 Enoxaparin Sodium (Lovenox) 40 mg DAILY SC Last administered on 11/09/18 09:21; Admin Dose 40 MG; Start 10/26/18 at 12:00 Metoprolol Tartrate (Lopressor) 5 mg Q4H PRN IV HR>110 Hold SBP<100; Start 10/30/18 at 13:30 Fentanyl (Duragesic 25 Mcg/Hr Patch) 1 patch Q72H TRANSDERM Last administered on 11/09/18 10:28; Admin Dose 1 PATCH; Start 11/03/18 at 09:00 Linezolid (Zyvox) 600 mg BID PO Last administered on 11/09/18 09:17; Admin Dose 600 MG; Start 11/03/18 at 12:30 Meropenem/Sodium Chloride 50 ml @ 100 mls/hr Q12 IVPB Last administered on 11/09/18 09:24; Admin Dose 100 MLS/HR; Start 11/03/18 at 14:00 Albuterol (Ventolin Hfa) 4 puff Q2H PRN INH SHORTNESS OF BREATH Last administered on 11/09/18 13:10; Admin Dose 4 PUFF; Start 11/03/18 at 15:30 Hydromorphone HCl (Dilaudid) 2 mg Q4H PRN PO SEVERE PAIN LEVEL 7-10 Last administered on 11/09/18 11:24; Admin Dose 2 MG; Start 11/04/18 at 13:00 Midodrine (Proamatine) 30 mg Q8 GTB Last administered on 11/09/18 14:09; Admin Dose 30 MG; Start 11/08/18 at 14:00 Ketoconazole (Nizoral Shampoo) 1 applic Q12 TOP Last administered on 11/09/18 09:17; Admin Dose 1 APPLIC; Start 11/08/18 at 12:00 Betamethasone/ Clotrimazole (Lotrisone Cr) 1 applic BID TOP Last administered on 11/09/18 09:16; Admin Dose 1 APPLIC; Start 11/08/18 at 21:00 Acetaminophen (Tylenol Liquid) 650 mg Q4H PRN GTB MILD PAIN(1-3)OR ELEVATED TEMP Last administered on 11/09/18 11:23; Admin Dose 650 MG; Start 11/08/18 at 15:30 Ondansetron HCl (Zofran Inj) 4 mg Q6H PRN IV NAUSEA AND/OR VOMITING Last administered on 11/09/18 06:29; Admin Dose 4 MG; Start 11/09/18 at 06:30 Pantoprazole (Protonix Tab) 40 mg DAILY@06 PO ; Start 11/10/18 at 06:00 Al Hydrox/Mg Hydrox/Simethicone (Mag-Al Plus) 30 ml Q6H PRN PO GASTROINTESTINAL UPSET Last administered on 11/09/18 09:16; Admin Dose 30 ML; Start 11/09/18 at 09:00 Assessment/Plan Additional Assessment/Plan IMP: 1. Vent dependent respiratory failure 2. Anemia likely of chronic disease no active GI bleeding 3. History of HIV + 4. Sacral osteomyelitis 5. Hypotension likely combination of low-grade sepsis and opiate analgesia. Currently stable off vasopressors on midodrine 6. Dysphagia tolerating 60- right 70% of p.o. diet RECS: 1. Continue wound care 2. Mechanical ventilation 3. PO's as tolerated 4. Continue Midodrine/okay to maintain lower MAPS 5. Infectious work-up as per SHASHA GREENE MD Nov 09, 2018 15:09
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
[2018-11-09] MEDS: MIRTAZAPINE 15 MG TAB PO SCH (20:46)
[2018-11-10] VITALS (28 sets, daily range): BP systolic 87–129; BP diastolic 54–95; PULSE 38–88; RESP 14–22
[2018-11-10] MEDS: HYDROmorphONE 2 MG TAB PO PRN ×4 (01:18→22:38)
[2018-11-10] MEDS: ACETAMINOPHEN 650MG/20.3ML CUP GTB PRN ×4 (01:18→21:02)
[2018-11-10] MEDS: LORAZEPAM 1 MG TAB GTB PRN (02:47)
[2018-11-10] MEDS: ALBUTEROL HFA 8 GM INHALER INH PRN ×4 (04:49→19:23)
[2018-11-10] MEDS: PANTOPRAZOLE (EC) 40 MG TAB PO SCH (05:41)
[2018-11-10] MEDS: MIDODRINE 5 MG TAB GTB SCH ×3 (05:42→21:03)
[2018-11-10] MEDS: DEXTROSE 5%-0.45% NACL 1,000 ML IV SCH ×2 (08:12→21:03)
[2018-11-10] MEDS: MEROPENEM 1 GM/50ML(PMX) 50 ML IVPB SCH (08:12)
[2018-11-10] MEDS: ZYVOX 600 MG TAB PO SCH (08:13)
[2018-11-10] MEDS: BETAMETHASONE/CLOTRIMAZOLE 15 GM CR TOP SCH ×2 (08:13→21:00)
[2018-11-10] MEDS: KETOCONAZOLE 2% SHAMPOO 120 ML BTL TOP SCH ×2 (08:14→21:00)
[2018-11-10] MEDS: ENOXAPARIN 40 MG/0.4 ML SYG SC SCH (08:32)
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
--- NOTE | 2018-11-10 15:08 | CONS ---
Date/Time of Note Date/Time of Note DATE: 11/10/18 TIME: 15:07 Consult Date/Type/Reason Admit Date/Time Sep 23, 2018 at 18:14 Initial Consult Date 09/25/18 Type of Consultation: Pulmonary Requesting Provider: MOISES CARLSON MD Subjective Remains stable. Objective Vital Signs Date Temp Pulse Resp B/P (MAP) Pulse Ox O2 O2 Flow FiO2 Time Delivery Rate 11/10/18 59 14 100 30 13:05 11/10/18 97.6 115/87 Mechanical 11:59 (96) Ventilator Trach Collar Intake and Output 11/09/18 11/09/18 11/10/18 1515:00 23:00 07:00 IntakeIntake Total 1300 ml 950 ml OutputOutput Total 2500 ml BalanceBalance 1300 ml -1550 ml Exam GENERAL: Chronically ill-appearing gentleman on mechanical ventilation via tracheostomy NECK: Supple. No JVD or lymphadenopathy. CARDIAC EXAM: S1, S2. No added sounds or murmurs. CHEST: clear bilaterally, No added sounds, rales or wheezes ABDOMEN: Soft, nontender. No guarding or rebound. EXTREMITIES: No cyanosis, clubbing or edema. NEUROLOGIC: Generalized weakness. Results/Medications Result Diagram: 11/10/18 0648 11/10/18 0648 Results 24 hrs Laboratory Tests Test 11/10/18 06:48 White Blood Count 3.7 #L Red Blood Count 5.27 # Hemoglobin 16.1 # Hematocrit 50.6 # Mean Corpuscular Volume 96.0 Mean Corpuscular Hemoglobin 30.6 Mean Corpuscular Hemoglobin Concent 31.8 L Red Cell Distribution Width 13.8 Platelet Count 248 # Mean Platelet Volume 8.6 Immature Granulocytes % 0.300 Neutrophils % 58.5 Lymphocytes % 28.1 Monocytes % 6.8 Eosinophils % 4.9 Basophils % 1.4 Nucleated Red Blood Cells % 0.0 Immature Granulocytes # 0.010 Neutrophils # 2.2 Lymphocytes # 1.0 Monocytes # 0.3 Eosinophils # 0.2 Basophils # 0.1 Nucleated Red Blood Cells # 0.0 Sodium Level 139 Potassium Level 4.0 Chloride Level 101 Carbon Dioxide Level 31 Anion Gap 7 Blood Urea Nitrogen 10 Creatinine 0.23 L Est Glomerular Filtrat Rate mL/min > 60 Glucose Level 89 Calcium Level 9.4 Medications Current Medications Docusate Sodium (Colace Liquid Cup) 100 mg BID PRN GTB CONSTIPATION Last a dministered on 11/03/18 09:46; Admin Dose 100 MG; Start 10/07/18 at 03:30 Lorazepam (Ativan) 1 mg Q6H PRN GTB ANXIETY Last administered on 11/10/18 02:47; Admin Dose 1 MG; Start 10/09/18 at 20:30 Dextrose/Sodium Chloride 1,000 ml @ 100 mls/hr Q10H IV Last administered on 11/10/18 08:12; Admin Dose 100 MLS/HR; Start 10/12/18 at 20:00 Mirtazapine (Remeron) 15 mg HS PO Last administered on 11/09/18 20:46; Admin Dose 15 MG; Start 10/23/18 at 22:00 Enoxaparin Sodium (Lovenox) 40 mg DAILY SC Last administered on 11/10/18 08:32; Admin Dose 40 MG; Start 10/26/18 at 12:00 Metoprolol Tartrate (Lopressor) 5 mg Q4H PRN IV HR>110 Hold SBP<100; Start 10/30/18 at 13:30 Fentanyl (Duragesic 25 Mcg/Hr Patch) 1 patch Q72H TRANSDERM Last administered on 11/09/18 10:28; Admin Dose 1 PATCH; Start 11/03/18 at 09:00 Albuterol (Ventolin Hfa) 4 puff Q2H PRN INH SHORTNESS OF BREATH Last admini stered on 11/10/18 09:30; Admin Dose 4 PUFF; Start 11/03/18 at 15:30 Hydromorphone HCl (Dilaudid) 2 mg Q4H PRN PO SEVERE PAIN LEVEL 7-10 Last administered on 11/10/18 13:17; Admin Dose 2 MG; Start 11/04/18 at 13:00 Midodrine (Proamatine) 30 mg Q8 GTB Last administered on 11/10/18 13:21; Admi n Dose 30 MG; Start 11/08/18 at 14:00 Ketoconazole (Nizoral Shampoo) 1 applic Q12 TOP Last administered on 11/09/18 09:17; Admin Dose 1 APPLIC; Start 11/08/18 at 12:00 Betamethasone/ Clotrimazole (Lotrisone Cr) 1 applic BID TOP Last administered on 11/10/18at 08:13; Admin Dose 1 APPLIC; Start 11/08/18 at 21:00 Acetaminophen (Tylenol Liquid) 650 mg Q4H PRN GTB MILD PAIN(1-3)OR ELEVATED TEMP Last administered on 11/10/18at 08:31; Admin Dose 650 MG; Start 11/08/18 at 15:30 Ondansetron HCl (Zofran Inj) 4 mg Q6H PRN IV NAUSEA AND/OR VOMITING Last administered on 11/09/18at 06:29; Admin Dose 4 MG; Start 11/09/18 at 06:30 Pantoprazole (Protonix Tab) 40 mg DAILY@06 PO Last administered on 11/10/18at 05:41; Admin Dose 40 MG; Start 11/10/18 at 06:00 Al Hydrox/Mg Hydrox/Simethicone (Mag-Al Plus) 30 ml Q6H PRN PO GASTROINTESTINAL UPSET Last administered on 11/09/18at 09:16; Admin Dose 30 ML; Start 11/09/18 at 09:00 Assessment/Plan Chief Complaint/Hosp Course Assessment 1. Vent dependent respiratory failure 2. Anemia likely of chronic disease no active GI bleeding 3. History of HIV + 4. Sacral osteomyelitis 5. Hypotension likely combination of low-grade sepsis and opiate analgesia. Currently stable off vasopressors on midodrine 6. Dysphagia tolerating 60- right 70% of p.o. diet Plan 1. Continue wound care 2. Continue mechanical ventilation 3. Tube feeding as tolerated 4. Continue Midodrin 5. Continues p.o. intake. dc planning JENNIFER TERRELL MD, [facility] Nov 10, 2018 15:08
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
[2018-11-10] MEDS: MIRTAZAPINE 15 MG TAB PO SCH (21:03)
[2018-11-11] VITALS (28 sets, daily range): BP systolic 71–153; BP diastolic 40–97; PULSE 43–113; RESP 14–20
[2018-11-11] MEDS: HYDROmorphONE 2 MG TAB PO PRN ×4 (03:10→20:23)
[2018-11-11] MEDS: LORAZEPAM 1 MG TAB GTB PRN ×2 (04:23→17:29)
[2018-11-11] MEDS: ALBUTEROL HFA 8 GM INHALER INH PRN ×6 (05:06→21:31)
[2018-11-11] MEDS: ACETAMINOPHEN 650MG/20.3ML CUP GTB PRN ×3 (05:20→22:48)
[2018-11-11] MEDS: MIDODRINE 5 MG TAB GTB SCH ×3 (05:21→15:14)
[2018-11-11] MEDS: PANTOPRAZOLE (EC) 40 MG TAB PO SCH (05:22)
[2018-11-11] MEDS: DEXTROSE 5%-0.45% NACL 1,000 ML IV SCH ×2 (05:23→15:14)
[2018-11-11] MEDS: BETAMETHASONE/CLOTRIMAZOLE 15 GM CR TOP SCH ×2 (09:00→20:30)
[2018-11-11] MEDS: KETOCONAZOLE 2% SHAMPOO 120 ML BTL TOP SCH ×2 (10:19→20:31)
[2018-11-11] MEDS: ENOXAPARIN 40 MG/0.4 ML SYG SC SCH (10:23)
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
--- NOTE | 2018-11-11 15:12 | CONS ---
Date/Time of Note Date/Time of Note DATE: 11/11/18 TIME: 15:12 Consult Date/Type/Reason Admit Date/Time Sep 23, 2018 at 18:14 Initial Consult Date 09/25/18 Type of Consultation: Pulmonary Requesting Provider: MOISES CARLSON MD Subjective Remains stable. Objective Vital Signs Date Temp Pulse Resp B/P (MAP) Pulse Ox O2 O2 Flow FiO2 Time Delivery Rate 11/11/18 58 13:36 11/11/18 30 08:00 11/11/18 98.6 14 136/96 100 Mechanical 07:28 (109) Ventilator Intake and Output 11/10/18 11/10/18 11/11/18 1515:00 23:00 07:00 IntakeIntake Total 1400 ml OutputOutput Total 1750 ml BalanceBalance -350 ml Exam GENERAL: Chronically ill-appearing gentleman on mechanical ventilation via tracheostomy NECK: Supple. No JVD or lymphadenopathy. CARDIAC EXAM: S1, S2. No added sounds or murmurs. CHEST: clear bilaterally, No added sounds, rales or wheezes ABDOMEN: Soft, nontender. No guarding or rebound. EXTREMITIES: No cyanosis, clubbing or edema. NEUROLOGIC: Generalized weakness. Results/Medications Result Diagram: 11/11/18 0700 11/11/18 0700 Results 24 hrs Laboratory Tests Test 11/11/18 07:00 White Blood Count 7.9 # Red Blood Count 3.27 #L Hemoglobin 10.0 #L Hematocrit 32.0 #L Mean Corpuscular Volume 97.9 Mean Corpuscular Hemoglobin 30.6 Mean Corpuscular Hemoglobin Concent 31.3 L Red Cell Distribution Width 13.7 Platelet Count 432 #H Mean Platelet Volume 8.4 Immature Granulocytes % 0.400 Neutrophils % 65.6 Lymphocytes % 23.1 Monocytes % 4.3 Eosinophils % 5.5 Basophils % 1.1 Nucleated Red Blood Cells % 0.0 Immature Granulocytes # 0.030 Neutrophils # 5.2 Lymphocytes # 1.8 Monocytes # 0.3 Eosinophils # 0.4 Basophils # 0.1 Nucleated Red Blood Cells # 0.0 Sodium Level 142 Potassium Level 4.0 Chloride Level 104 Carbon Dioxide Level 30 Anion Gap 8 Blood Urea Nitrogen 11 Creatinine 0.28 L Est Glomerular Filtrat Rate mL/min > 60 Glucose Level 94 Calcium Level 9.3 Medications Current Medications Docusate Sodium (Colace Liquid Cup) 100 mg BID PRN GTB CONSTIPATION Last admini stered on 11/03/18 09:46; Admin Dose 100 MG; Start 10/07/18 at 03:30 Lorazepam (Ativan) 1 mg Q6H PRN GTB ANXIETY Last administered on 11/11/18 04:23; Admin Dose 1 MG; Start 10/09/18 at 20:30 Dextrose/Sodium Chloride 1,000 ml @ 100 mls/hr Q10H IV Last administered on 11/11/18 05:23; Admin Dose 100 MLS/HR; Start 10/12/18 at 20:00 Mirtazapine (Remeron) 15 mg HS PO Last administered on 11/10/18 21:03; Admin Dose 15 MG; Start 10/23/18 at 22:00 Enoxaparin Sodium (Lovenox) 40 mg DAILY SC Last administered on 11/11/18 10:23; Admin Dose 40 MG; Start 10/26/18 at 12:00 Metoprolol Tartrate (Lopressor) 5 mg Q4H PRN IV HR>110 Hold SBP<100; Start 10/30/18 at 13:30 Fentanyl (Duragesic 25 Mcg/Hr Patch) 1 patch Q72H TRANSDERM Last administered on 11/09/18 10:28; Admin Dose 1 PATCH; Start 11/03/18 at 09:00 Albuterol (Ventolin Hfa) 4 puff Q2H PRN INH SHORTNESS OF BREATH Last administer ed on 11/11/18 11:40; Admin Dose 4 PUFF; Start 11/03/18 at 15:30 Hydromorphone HCl (Dilaudid) 2 mg Q4H PRN PO SEVERE PAIN LEVEL 7-10 Last administered on 11/11/18 14:17; Admin Dose 2 MG; Start 11/04/18 at 13:00 Midodrine (Proamatine) 30 mg Q8 GTB Last administered on 11/11/18 05:21; Admin Dose 30 MG; Start 11/08/18 at 14:00 Ketoconazole (Nizoral Shampoo) 1 applic Q12 TOP Last administered on 11/11/18 10:19; Admin Dose 1 APPLIC; Start 11/08/18 at 12:00 Betamethasone/ Clotrimazole (Lotrisone Cr) 1 applic BID TOP Last administered on 11/10/18at 08:13; Admin Dose 1 APPLIC; Start 11/08/18 at 21:00 Acetaminophen (Tylenol Liquid) 650 mg Q4H PRN GTB MILD PAIN(1-3)OR ELEVATED TEMP Last administered on 11/11/18at 12:42; Admin Dose 650 MG; Start 11/08/18 at 15:30 Ondansetron HCl (Zofran Inj) 4 mg Q6H PRN IV NAUSEA AND/OR VOMITING Last administered on 11/09/18at 06:29; Admin Dose 4 MG; Start 11/09/18 at 06:30 Pantoprazole (Protonix Tab) 40 mg DAILY@06 PO Last administered on 11/11/18at 05:22; Admin Dose 40 MG; Start 11/10/18 at 06:00 Al Hydrox/Mg Hydrox/Simethicone (Mag-Al Plus) 30 ml Q6H PRN PO GASTROINTESTINAL UPSET Last administered on 11/09/18at 09:16; Admin Dose 30 ML; Start 11/09/18 at 09:00 Assessment/Plan Chief Complaint/Hosp Course Assessment 1. Vent dependent respiratory failure 2. Anemia likely of chronic disease no active GI bleeding 3. History of HIV + 4. Sacral osteomyelitis 5. Hypotension likely combination of low-grade sepsis and opiate analgesia. Currently stable off vasopressors on midodrine 6. Dysphagia tolerating 60- right 70% of p.o. diet Plan 1. Continue wound care 2. Continue mechanical ventilation 3. Tube feeding as tolerated 4. Continue Midodrin 5. Continues p.o. intake. dc planning JENNIFER TERRELL MD, [facility] Nov 11, 2018 15:12
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
[2018-11-11] MEDS: ONDANSETRON 4 MG INJ IV PRN (18:47)
[2018-11-11] MEDS: MIRTAZAPINE 15 MG TAB PO SCH (20:23)
[2018-11-11] MEDS: MIDODRINE 2.5 MG TAB GTB SCH (23:48)
[2018-11-12] VITALS (22 sets, daily range): BP systolic 94–151; BP diastolic 53–111; PULSE 43–116; RESP 14–24
[2018-11-12] MEDS: ONDANSETRON 4 MG INJ IV PRN (00:05)
[2018-11-12] MEDS: LORAZEPAM 1 MG TAB GTB PRN ×4 (00:05→21:00)
[2018-11-12] MEDS: DEXTROSE 5%-0.45% NACL 1,000 ML IV SCH ×3 (00:09→23:19)
[2018-11-12] MEDS: HYDROmorphONE 2 MG TAB PO PRN ×5 (02:11→20:59)
[2018-11-12] MEDS: ALBUTEROL HFA 8 GM INHALER INH PRN ×3 (04:16→18:54)
[2018-11-12] MEDS: PANTOPRAZOLE (EC) 40 MG TAB PO SCH (06:40)
[2018-11-12] MEDS: MIDODRINE 2.5 MG TAB GTB SCH (06:48)
[2018-11-12] MEDS: KETOCONAZOLE 2% SHAMPOO 120 ML BTL TOP SCH ×2 (08:59→21:00)
[2018-11-12] MEDS: BETAMETHASONE/CLOTRIMAZOLE 15 GM CR TOP SCH ×2 (08:59→21:00)
[2018-11-12] MEDS: ENOXAPARIN 40 MG/0.4 ML SYG SC SCH (09:39)
[2018-11-12] MEDS: ACETAMINOPHEN 650MG/20.3ML CUP GTB PRN ×2 (10:21→19:38)
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
--- NOTE | 2018-11-12 14:26 | PN ---
Date/Time of Note Date/Time of Note DATE: 11/12/18 TIME: 14:18 Assessment/Plan VTE [place]axis [place] [facility] [place]: 4 [place] [facility] [place] SCD contraindicated: other Pharmacological prophylaxis: other Lines/Catheters IV Catheter Type (from [facility] PICC Line Central line still needed: Yes Urinary Cath still in place: Yes Reason Cath still needed: urinary retention Subjective 24 Hr Interval Summary Constitutional: requiring O2 ENT: no complaints Respiratory: shortness of breath Cardiovascular: no complaints Genitourinary: no complaints Musculoskeletal: restricted range of motion Skin: no complaints Exam/Review of Systems Vital Signs Vitals Vital Signs Date Temp Pulse Resp B/P (MAP) Pulse Ox O2 O2 Flow FiO2 Time Delivery Rate 11/12/18 71 13:20 11/12/18 98.7 16 94/53 (67) 100 12:06 11/12/18 40 11:10 11/11/18 Mechanical 16:19 Ventilator Intake and Output 11/11/18 11/11/18 11/12/18 1414:59 22:59 06:59 IntakeIntake Total 100 ml 1200 ml 400 ml OutputOutput Total 1800 ml 900 ml BalanceBalance 100 ml -600 ml -500 ml Exam Constitutional: alert, well developed Respiratory: diminished breath sounds Cardiovascular: nl pulses, other Gastrointestinal: soft, other (gt in) Musculoskeletal: muscle weakness, range of motion Extremities: normal pulses Neurological: other Skin: other (decubs) Medications Medications Current Medications Docusate Sodium (Colace Liquid Cup) 100 mg BID PRN GTB CONSTIPATION Last administered on 11/03/18at 09:46; Admin Dose 100 MG; Start 10/07/18 at 03:30 Lorazepam (Ativan) 1 mg Q6H PRN GTB ANXIETY Last administered on 11/12/18at 08:58; Admin Dose 1 MG; Start 10/09/18 at 20:30 Dextrose/Sodium Chloride 1,000 ml @ 100 mls/hr Q10H IV Last administered on 11/12/18at 10:21; Admin Dose 100 MLS/HR; Start 10/12/18 at 20:00 Mirtazapine (Remeron) 15 mg HS PO Last administered on 11/11/18at 20:23; Admin Dose 15 MG; Start 10/23/18 at 22:00 Enoxaparin Sodium (Lovenox) 40 mg DAILY SC Last administered on 11/12/18 09:39; Admin Dose 40 MG; Start 10/26/18 at 12:00 Metoprolol Tartrate (Lopressor) 5 mg Q4H PRN IV HR>110 Hold SBP<100; Start 10/30/18 at 13:30 Fentanyl (Duragesic 25 Mcg/Hr Patch) 1 patch Q72H TRANSDERM Last administered on 11/12/18 10:31; Admin Dose 1 PATCH; Start 11/03/18 at 09:00 Albuterol (Ventolin Hfa) 4 puff Q2H PRN INH SHORTNESS OF BREATH Last administered on 11/12/18 07:44; Admin Dose 4 PUFF; Start 11/03/18 at 15:30 Hydromorphone HCl (Dilaudid) 2 mg Q4H PRN PO SEVERE PAIN LEVEL 7-10 Last administered on 11/12/18 12:28; Admin Dose 2 MG; Start 11/04/18 at 13:00 Ketoconazole (Nizoral Shampoo) 1 applic Q12 TOP Last administered on 11/12/18 08:59; Admin Dose 1 APPLIC; Start 11/08/18 at 12:00 Betamethasone/ Clotrimazole (Lotrisone Cr) 1 applic BID TOP Last administered on 11/12/18 08:59; Admin Dose 1 APPLIC; Start 11/08/18 at 21:00 Acetaminophen (Tylenol Liquid) 650 mg Q4H PRN GTB MILD PAIN(1-3)OR ELEVATED TEMP Last administered on 11/12/18 10:21; Admin Dose 650 MG; Start 11/08/18 at 15:30 Ondansetron HCl (Zofran Inj) 4 mg Q6H PRN IV NAUSEA AND/OR VOMITING Last administered on 11/12/18 00:05; Admin Dose 4 MG; Start 11/09/18 at 06:30 Pantoprazole (Protonix Tab) 40 mg DAILY@06 PO Last administered on 11/12/18 06:40; Admin Dose 40 MG; Start 11/10/18 at 06:00 Al Hydrox/Mg Hydrox/Simethicone (Mag-Al Plus) 30 ml Q6H PRN PO GASTROINTESTINAL UPSET Last administered on 12/9/18at 09:16; Admin Dose 30 ML; Start 11/09/18 at 09:00 Midodrine (Proamatine) 30 mg Q8 GTB Last administered on 11/12/18at 06:48; Admin Dose 30 MG; Start 11/11/18 at 23:00 Results Result Diagram: 11/12/18 0642 11/12/18 0643 Results 24 hrs Laboratory Tests Test 11/12/18 06:42 11/12/18 06:43 White Blood Count 6.8 Red Blood Count 2.92 L Hemoglobin 9.1 L Hematocrit 28.7 L Mean Corpuscular Volume 98.3 Mean Corpuscular Hemoglobin 31.2 Mean Corpuscular Hemoglobin Concent 31.7 L Red Cell Distribution Width 13.8 Platelet Count 384 Mean Platelet Volume 8.6 Immature Granulocytes % 0.300 Neutrophils % 64.8 Lymphocytes % 24.9 Monocytes % 5.0 Eosinophils % 3.8 Basophils % 1.2 Nucleated Red Blood Cells % 0.0 Immature Granulocytes # 0.020 Neutrophils # 4.4 Lymphocytes # 1.7 Monocytes # 0.3 Eosinophils # 0.3 Basophils # 0.1 Nucleated Red Blood Cells # 0.0 Sodium Level 140 Potassium Level 4.1 Chloride Level 102 Carbon Dioxide Level 32 H Anion Gap 6 Blood Urea Nitrogen 12 Creatinine 0.25 L Est Glomerular Filtrat Rate mL/min > 60 Glucose Level 86 Calcium Level 9.2 RONALD BURGOS Nov 12, 2018 14:25
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
--- NOTE | 2018-11-12 15:25 | CONS ---
Date/Time of Note Date/Time of Note DATE: 11/12/18 TIME: 15:24 Consult Date/Type/Reason Admit Date/Time Sep 23, 2018 at 18:14 Initial Consult Date 09/25/18 Type of Consultation: Pulmonary Requesting Provider: MOISES CARLSON MD Subjective No events. BP remains labile Objective Vital Signs Date Temp Pulse Resp B/P (MAP) Pulse Ox O2 O2 Flow FiO2 Time Delivery Rate 11/12/18 61 14 100 40 14:30 11/12/18 98.7 94/53 (67) 12:06 11/11/18 Mechanical 16:19 Ventilator Intake and Output 11/11/18 11/11/18 11/12/18 1515:00 23:00 07:00 IntakeIntake Total 1200 ml 400 ml OutputOutput Total 1800 ml 900 ml BalanceBalance -600 ml -500 ml Exam GENERAL: Chronically ill-appearing gentleman on mechanical ventilation via tracheostomy NECK: Supple. No JVD or lymphadenopathy. CARDIAC EXAM: S1, S2. No added sounds or murmurs. CHEST: clear bilaterally, No added sounds, rales or wheezes ABDOMEN: Soft, nontender. No guarding or rebound. EXTREMITIES: No cyanosis, clubbing or edema. NEUROLOGIC: Generalized weakness. Results/Medications Result Diagram: 11/12/18 0642 11/12/18 0643 Results 24 hrs Laboratory Tests Test 11/12/18 06:42 11/12/18 06:43 White Blood Count 6.8 Red Blood Count 2.92 L Hemoglobin 9.1 L Hematocrit 28.7 L Mean Corpuscular Volume 98.3 Mean Corpuscular Hemoglobin 31.2 Mean Corpuscular Hemoglobin Concent 31.7 L Red Cell Distribution Width 13.8 Platelet Count 384 Mean Platelet Volume 8.6 Immature Granulocytes % 0.300 Neutrophils % 64.8 Lymphocytes % 24.9 Monocytes % 5.0 Eosinophils % 3.8 Basophils % 1.2 Nucleated Red Blood Cells % 0.0 Immature Granulocytes # 0.020 Neutrophils # 4.4 Lymphocytes # 1.7 Monocytes # 0.3 Eosinophils # 0.3 Basophils # 0.1 Nucleated Red Blood Cells # 0.0 Sodium Level 140 Potassium Level 4.1 Chloride Level 102 Carbon Dioxide Level 32 H Anion Gap 6 Blood Urea Nitrogen 12 Creatinine 0.25 L Est Glomerular Filtrat Rate mL/min > 60 Glucose Level 86 Calcium Level 9.2 Medications Current Medications Docusate Sodium (Colace Liquid Cup) 100 mg BID PRN GTB CONSTIPATION Last administered on 11/03/18 09:46; Admin Dose 100 MG; Start 10/07/18 at 03:30 Lorazepam (Ativan) 1 mg Q6H PRN GTB ANXIETY Last administered on 11/12/18 14:54; Admin Dose 1 MG; Start 10/09/18 at 20:30 Dextrose/Sodium Chloride 1,000 ml @ 100 mls/hr Q10H IV Last administered on 11/12/18 10:21; Admin Dose 100 MLS/HR; Start 10/12/18 at 20:00 Mirtazapine (Remeron) 15 mg HS PO Last administered on 11/11/18 20:23; Admin Dose 15 MG; Start 10/23/18 at 22:00 Enoxaparin Sodium (Lovenox) 40 mg DAILY SC Last administered on 11/12/18 09:39; Admin Dose 40 MG; Start 10/26/18 at 12:00 Metoprolol Tartrate (Lopressor) 5 mg Q4H PRN IV HR>110 Hold SBP<100; Start 10/30/18 at 13:30 Fentanyl (Duragesic 25 Mcg/Hr Patch) 1 patch Q72H TRANSDERM Last administered on 11/12/18 10:31; Admin Dose 1 PATCH; Start 11/03/18 at 09:00 Albuterol (Ventolin Hfa) 4 puff Q2H PRN INH SHORTNESS OF BREATH Last administered on 11/12/18 07:44; Admin Dose 4 PUFF; Start 11/03/18 at 15:30 Hydromorphone HCl (Dilaudid) 2 mg Q4H PRN PO SEVERE PAIN LEVEL 7-10 Last administered on 11/12/18 12:28; Admin Dose 2 MG; Start 11/04/18 at 13:00 Ketoconazole (Nizoral Shampoo) 1 applic Q12 TOP Last administered on 11/12/18 08:59; Admin Dose 1 APPLIC; Start 11/08/18 at 12:00 Betamethasone/ Clotrimazole (Lotrisone Cr) 1 applic BID TOP Last administered on 11/12/18 08:59; Admin Dose 1 APPLIC; Start 11/08/18 at 21:00 Acetaminophen (Tylenol Liquid) 650 mg Q4H PRN GTB MILD PAIN(1-3)OR ELEVATED TEMP Last administered on 11/12/18at 10:21; Admin Dose 650 MG; Start 11/08/18 at 15:30 Ondansetron HCl (Zofran Inj) 4 mg Q6H PRN IV NAUSEA AND/OR VOMITING Last administered on 11/12/18at 00:05; Admin Dose 4 MG; Start 11/09/18 at 06:30 Pantoprazole (Protonix Tab) 40 mg DAILY@06 PO Last administered on 11/12/18at 06:40; Admin Dose 40 MG; Start 11/10/18 at 06:00 Al Hydrox/Mg Hydrox/Simethicone (Mag-Al Plus) 30 ml Q6H PRN PO GASTROINTESTINAL UPSET Last administered on 11/09/18at 09:16; Admin Dose 30 ML; Start 11/09/18 at 09:00 Midodrine (Proamatine) 30 mg Q8 GTB ; Start 11/12/18 at 15:00 Assessment/Plan Chief Complaint/Hosp Course Assessment 1. Vent dependent respiratory failure 2. Anemia likely of chronic disease no active GI bleeding 3. History of HIV + 4. Sacral osteomyelitis 5. Hypotension likely combination of low-grade sepsis and opiate analgesia. Currently stable off vasopressors on midodrine 6. Dysphagia tolerating 60- right 70% of p.o. diet Plan 1. Continue wound care 2. Continue mechanical ventilation 3. Tube feeding as tolerated 4. Continue Midodrin 5. Continues p.o. intake. dc planning JENNIFER TERRELL MD, [facility] Nov 12, 2018 15:25
[2018-11-12] MEDS: MIDODRINE 5 MG TAB GTB SCH ×2 (15:52→21:01)
[2018-11-12] MEDS: MIRTAZAPINE 15 MG TAB PO SCH (21:00)
[2018-11-13] VITALS (23 sets, daily range): BP systolic 91–137; BP diastolic 54–96; PULSE 43–91; RESP 14–21
[2018-11-13] MEDS: LORAZEPAM 1 MG TAB GTB PRN ×2 (04:10→16:17)
[2018-11-13] MEDS: HYDROmorphONE 2 MG TAB PO PRN ×5 (04:10→22:14)
[2018-11-13] MEDS: ACETAMINOPHEN 650MG/20.3ML CUP GTB PRN ×5 (04:59→22:14)
[2018-11-13] MEDS: ALBUTEROL HFA 8 GM INHALER INH PRN ×3 (05:16→19:23)
[2018-11-13] MEDS: PANTOPRAZOLE (EC) 40 MG TAB PO SCH (06:12)
[2018-11-13] MEDS: MIDODRINE 5 MG TAB GTB SCH ×3 (06:14→22:13)
[2018-11-13] MEDS: BETAMETHASONE/CLOTRIMAZOLE 15 GM CR TOP SCH ×2 (08:52→21:00)
[2018-11-13] MEDS: KETOCONAZOLE 2% SHAMPOO 120 ML BTL TOP SCH ×2 (08:53→21:00)
[2018-11-13] MEDS: ENOXAPARIN 40 MG/0.4 ML SYG SC SCH (09:07)
[2018-11-13] MEDS: DEXTROSE 5%-0.45% NACL 1,000 ML IV SCH ×2 (09:12→18:34)
[2018-11-13] MEDS: ONDANSETRON 4 MG INJ IV PRN ×2 (09:17→16:17)
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
[2018-11-13] MEDS: MIRTAZAPINE 15 MG TAB PO SCH (21:27)
[2018-11-14] VITALS (23 sets, daily range): BP systolic 96–122; BP diastolic 55–89; PULSE 45–100; RESP 14–24
[2018-11-14] MEDS: ALBUTEROL HFA 8 GM INHALER INH PRN ×5 (01:14→23:06)
[2018-11-14] MEDS: LORAZEPAM 1 MG TAB GTB PRN ×3 (02:18→17:41)
[2018-11-14] MEDS: ACETAMINOPHEN 650MG/20.3ML CUP GTB PRN ×5 (02:43→21:03)
[2018-11-14] MEDS: HYDROmorphONE 2 MG TAB PO PRN ×5 (02:43→21:02)
[2018-11-14] MEDS: MIDODRINE 5 MG TAB GTB SCH ×3 (06:55→22:51)
[2018-11-14] MEDS: PANTOPRAZOLE (EC) 40 MG TAB PO SCH (06:56)
[2018-11-14] MEDS: KETOCONAZOLE 2% SHAMPOO 120 ML BTL TOP SCH ×2 (09:00→20:59)
[2018-11-14] MEDS: BETAMETHASONE/CLOTRIMAZOLE 15 GM CR TOP SCH ×2 (09:00→20:59)
[2018-11-14] MEDS: ENOXAPARIN 40 MG/0.4 ML SYG SC SCH (09:46)
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
[2018-11-14] MEDS: ONDANSETRON 4 MG INJ IV PRN (15:05)
[2018-11-14] MEDS: MIRTAZAPINE 15 MG TAB PO SCH (21:02)
[2018-11-15] VITALS (21 sets, daily range): BP systolic 95–150; BP diastolic 59–94; PULSE 53–82; RESP 14–20
[2018-11-15] MEDS: HYDROmorphONE 2 MG TAB PO PRN ×6 (01:57→23:25)
[2018-11-15] MEDS: ACETAMINOPHEN 650MG/20.3ML CUP GTB PRN ×4 (01:57→15:02)
[2018-11-15] MEDS: MIDODRINE 5 MG TAB GTB SCH ×3 (06:00→21:53)
[2018-11-15] MEDS: PANTOPRAZOLE (EC) 40 MG TAB PO SCH (06:31)
[2018-11-15] MEDS: ALBUTEROL HFA 8 GM INHALER INH PRN ×3 (09:01→19:28)
[2018-11-15] MEDS: BETAMETHASONE/CLOTRIMAZOLE 15 GM CR TOP SCH ×2 (09:14→21:00)
[2018-11-15] MEDS: KETOCONAZOLE 2% SHAMPOO 120 ML BTL TOP SCH ×2 (09:14→21:00)
[2018-11-15] MEDS: ENOXAPARIN 40 MG/0.4 ML SYG SC SCH (09:18)
[2018-11-15] MEDS: LORAZEPAM 1 MG TAB GTB PRN ×3 (09:22→23:06)
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
[2018-11-15] MEDS: ONDANSETRON 4 MG INJ IV PRN (15:02)
[2018-11-15] MEDS: MIRTAZAPINE 15 MG TAB PO SCH (21:52)
[2018-11-16] VITALS (20 sets, daily range): BP systolic 90–159; BP diastolic 64–101; PULSE 55–102; RESP 14–20
[2018-11-16] MEDS: ACETAMINOPHEN 650MG/20.3ML CUP GTB PRN ×6 (00:30→22:11)
[2018-11-16] MEDS: HYDROmorphONE 2 MG TAB PO PRN ×5 (04:29→22:11)
[2018-11-16] MEDS: PANTOPRAZOLE (EC) 40 MG TAB PO SCH (05:40)
[2018-11-16] MEDS: MIDODRINE 5 MG TAB GTB SCH ×3 (05:40→22:10)
[2018-11-16] MEDS: ENOXAPARIN 40 MG/0.4 ML SYG SC SCH (08:54)
[2018-11-16] MEDS: BETAMETHASONE/CLOTRIMAZOLE 15 GM CR TOP SCH ×2 (09:00→21:00)
[2018-11-16] MEDS: KETOCONAZOLE 2% SHAMPOO 120 ML BTL TOP SCH ×2 (09:00→21:00)
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
[2018-11-16] MEDS: ALBUTEROL HFA 8 GM INHALER INH PRN ×4 (11:31→19:40)
[2018-11-16] MEDS: LORAZEPAM 1 MG TAB GTB PRN ×2 (11:41→19:16)
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
[2018-11-16] MEDS: ONDANSETRON 4 MG INJ IV PRN (16:01)
[2018-11-16] MEDS: MIRTAZAPINE 15 MG TAB PO SCH (21:55)
[2018-11-17] VITALS (21 sets, daily range): BP systolic 86–123; BP diastolic 56–93; PULSE 45–89; RESP 14–24
[2018-11-17] MEDS: LORAZEPAM 1 MG TAB GTB PRN ×3 (02:08→16:11)
[2018-11-17] MEDS: ACETAMINOPHEN 650MG/20.3ML CUP GTB PRN ×4 (02:24→14:41)
[2018-11-17] MEDS: HYDROmorphONE 2 MG TAB PO PRN ×6 (02:24→23:27)
[2018-11-17] MEDS: PANTOPRAZOLE (EC) 40 MG TAB PO SCH (06:25)
[2018-11-17] MEDS: MIDODRINE 5 MG TAB GTB SCH ×3 (06:26→22:19)
[2018-11-17] MEDS: ALBUTEROL HFA 8 GM INHALER INH PRN ×3 (08:39→20:18)
[2018-11-17] MEDS: ENOXAPARIN 40 MG/0.4 ML SYG SC SCH (08:55)
[2018-11-17] MEDS: KETOCONAZOLE 2% SHAMPOO 120 ML BTL TOP SCH ×2 (08:56→21:00)
[2018-11-17] MEDS: BETAMETHASONE/CLOTRIMAZOLE 15 GM CR TOP SCH ×2 (08:57→21:00)
[2018-11-17] MEDS: DOCUSATE SODIUM 10 MG/ML (10ML CUP) GTB PRN ×2 (10:39→18:42)
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
[2018-11-17] MEDS: MIRTAZAPINE 15 MG TAB PO SCH (22:18)
[2018-11-18] VITALS (23 sets, daily range): BP systolic 91–126; BP diastolic 54–89; PULSE 63–115; RESP 14–21
[2018-11-18] MEDS: ACETAMINOPHEN 650MG/20.3ML CUP GTB PRN ×5 (00:59→17:57)
[2018-11-18] MEDS: ALBUTEROL HFA 8 GM INHALER INH PRN ×3 (01:33→19:11)
[2018-11-18] MEDS: HYDROmorphONE 2 MG TAB PO PRN ×5 (03:20→21:53)
[2018-11-18] MEDS: MIDODRINE 5 MG TAB GTB SCH ×3 (05:22→21:52)
[2018-11-18] MEDS: PANTOPRAZOLE (EC) 40 MG TAB PO SCH (05:23)
[2018-11-18] MEDS: BETAMETHASONE/CLOTRIMAZOLE 15 GM CR TOP SCH ×2 (08:45→20:33)
[2018-11-18] MEDS: KETOCONAZOLE 2% SHAMPOO 120 ML BTL TOP SCH ×2 (08:45→20:32)
[2018-11-18] MEDS: ENOXAPARIN 40 MG/0.4 ML SYG SC SCH (08:51)
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
[2018-11-18] MEDS: ONDANSETRON 4 MG INJ IV PRN (16:45)
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
[2018-11-18] MEDS: LORAZEPAM 1 MG TAB GTB PRN (20:33)
[2018-11-18] MEDS: MIRTAZAPINE 15 MG TAB PO SCH (20:33)
[2018-11-19] VITALS (22 sets, daily range): BP systolic 11–125; BP diastolic 59–81; PULSE 78–124; RESP 17–24
[2018-11-19] MEDS: HYDROmorphONE 2 MG TAB PO PRN ×5 (02:57→21:13)
[2018-11-19] MEDS: ACETAMINOPHEN 650MG/20.3ML CUP GTB PRN ×4 (04:45→21:13)
[2018-11-19] MEDS: ALBUTEROL HFA 8 GM INHALER INH PRN ×3 (04:59→22:55)
[2018-11-19] MEDS: ONDANSETRON 4 MG INJ IV PRN ×3 (05:28→19:05)
[2018-11-19] MEDS: MIDODRINE 5 MG TAB GTB SCH ×3 (05:57→21:13)
[2018-11-19] MEDS: PANTOPRAZOLE (EC) 40 MG TAB PO SCH (05:57)
[2018-11-19] MEDS: LORAZEPAM 1 MG TAB GTB PRN ×3 (05:57→22:07)
[2018-11-19] MEDS: KETOCONAZOLE 2% SHAMPOO 120 ML BTL TOP SCH ×2 (08:46→21:00)
[2018-11-19] MEDS: BETAMETHASONE/CLOTRIMAZOLE 15 GM CR TOP SCH ×2 (08:46→21:00)
[2018-11-19] MEDS: ENOXAPARIN 40 MG/0.4 ML SYG SC SCH (08:55)
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
--- NOTE | 2018-11-19 18:46 | PN ---
Date/Time of Note Date/Time of Note DATE: 11/19/18 TIME: 18:46 Assessment/Plan VTE Prophylaxis Risk score (from Ns)>0 risk: 8 [place] [facility] [place] SCD contraindicated: other Pharmacological prophylaxis: other Pharm contraindication: other Lines/Catheters IV Catheter Type (from Nrsg): PICC Line Central line still needed: Yes Urinary Cath still in place: Yes Reason Cath still needed: urinary retention Subjective 24 Hr Interval Summary Free Text/Dictation nad seems comfortable asks for pain med arond the clock refuses wound care sometimes Trach. GTinatct no new issues reported last night Subjective hx not possible: pt non-verbal Constitutional: requiring O2 Exam/Review of Systems Vital Signs Vitals Vital Signs Date Temp Pulse Resp B/P (MAP) Pulse Ox O2 O2 Flow FiO2 Time Delivery Rate 11/19/18 96 20 98 30 17:25 11/19/18 98.6 111/65 Mechanical 16:03 (80) Ventilator Intake and Output 11/18/18 11/18/18 11/19/18 1515:00 23:00 07:00 IntakeIntake Total 600 ml 460 ml OutputOutput Total 550 ml 850 ml BalanceBalance 50 ml -390 ml Exam Constitutional: alert, non-verbal Psych: nl mood/affect Head: normocephalic Eyes: EOMI, nl sclera, PERRL ENMT: nl external ears & nose Neck: non-tender Respiratory: clear to auscultation (bilaterally) Cardiovascular: nl pulses, other (s1s2) Gastrointestinal: soft, non-tender Musculoskeletal: muscle weakness, range of motion Extremities: normal pulses Neurological: confused, other (alert/responsie) Skin: other (decub) Lymph: nontender RONALD BURGOS Nov 19, 2018 18:46
[2018-11-19] MEDS: MIRTAZAPINE 15 MG TAB PO SCH (21:14)
[2018-11-20] VITALS (25 sets, daily range): BP systolic 76–117; BP diastolic 45–76; PULSE 63–118; RESP 16–22
[2018-11-20] MEDS: HYDROmorphONE 2 MG TAB PO PRN ×5 (01:22→23:30)
[2018-11-20] MEDS: ACETAMINOPHEN 650MG/20.3ML CUP GTB PRN ×5 (01:22→22:14)
[2018-11-20] MEDS: MIDODRINE 5 MG TAB GTB SCH ×3 (05:46→22:15)
[2018-11-20] MEDS: PANTOPRAZOLE (EC) 40 MG TAB PO SCH (05:47)
[2018-11-20] MEDS: ALBUTEROL HFA 8 GM INHALER INH PRN ×6 (05:59→23:02)
[2018-11-20] MEDS: LORAZEPAM 1 MG TAB GTB PRN ×3 (08:37→23:30)
[2018-11-20] MEDS: KETOCONAZOLE 2% SHAMPOO 120 ML BTL TOP SCH ×2 (08:45→21:00)
[2018-11-20] MEDS: BETAMETHASONE/CLOTRIMAZOLE 15 GM CR TOP SCH ×2 (08:45→21:00)
[2018-11-20] MEDS: ENOXAPARIN 40 MG/0.4 ML SYG SC SCH (08:45)
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
[2018-11-20] MEDS ORDERED: VANCOMYCIN IV PER PHARMACY XX SCH (12:30)
[2018-11-20] MEDS: MEROPENEM 1 GM/50ML(PMX) 50 ML IVPB SCH ×2 (12:47→22:15)
[2018-11-20] MEDS ORDERED: VANCOMYCIN 1.5 GM in SOD CHLORIDE 0.9% 250 ML IVPB ONE (14:00)
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
[2018-11-20] MEDS: ONDANSETRON 4 MG INJ IV PRN (17:14)
[2018-11-20] MEDS: MIRTAZAPINE 15 MG TAB PO SCH (22:15)
[2018-11-20] MEDS: VANCOMYCIN 650 MG in SOD CHLORIDE 0.9% 150 ML IVPB SCH (23:29)
[2018-11-21] VITALS (24 sets, daily range): BP systolic 104–108; BP diastolic 72–77; PULSE 63–101; RESP 14–26
[2018-11-21] MEDS: ALBUTEROL HFA 8 GM INHALER INH PRN ×4 (03:02→20:43)
[2018-11-21] MEDS: HYDROmorphONE 2 MG TAB PO PRN ×5 (04:41→21:56)
[2018-11-21] MEDS: VANCOMYCIN 650 MG in SOD CHLORIDE 0.9% 150 ML IVPB SCH ×3 (06:02→23:50)
[2018-11-21] MEDS: PANTOPRAZOLE (EC) 40 MG TAB PO SCH (06:02)
[2018-11-21] MEDS: LORAZEPAM 1 MG TAB GTB PRN ×3 (06:03→23:50)
[2018-11-21] MEDS: MIDODRINE 5 MG TAB GTB SCH ×3 (06:03→22:00)
[2018-11-21] MEDS: ACETAMINOPHEN 650MG/20.3ML CUP GTB PRN ×4 (06:11→21:57)
[2018-11-21] MEDS: KETOCONAZOLE 2% SHAMPOO 120 ML BTL TOP SCH ×2 (09:00→21:35)
[2018-11-21] MEDS: MEROPENEM 1 GM/50ML(PMX) 50 ML IVPB SCH ×2 (09:01→21:35)
[2018-11-21] MEDS: ENOXAPARIN 40 MG/0.4 ML SYG SC SCH (09:05)
[2018-11-21] MEDS: BETAMETHASONE/CLOTRIMAZOLE 15 GM CR TOP SCH ×2 (10:48→21:35)
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
[2018-11-21] MEDS: MIRTAZAPINE 15 MG TAB PO SCH (21:35)
[2018-11-22] VITALS (21 sets, daily range): BP systolic 88–134; BP diastolic 54–92; PULSE 50–99; RESP 16–28
[2018-11-22] MEDS: HYDROmorphONE 2 MG TAB PO PRN ×5 (02:03→21:37)
[2018-11-22] MEDS: ACETAMINOPHEN 650MG/20.3ML CUP GTB PRN ×3 (02:03→17:26)
[2018-11-22] MEDS: ALBUTEROL HFA 8 GM INHALER INH PRN ×3 (04:16→21:34)
[2018-11-22] MEDS: PANTOPRAZOLE (EC) 40 MG TAB PO SCH (06:29)
[2018-11-22] MEDS: VANCOMYCIN 650 MG in SOD CHLORIDE 0.9% 150 ML IVPB SCH ×2 (06:29→14:47)
[2018-11-22] MEDS: MIDODRINE 5 MG TAB GTB SCH ×3 (06:30→21:10)
[2018-11-22] MEDS: LORAZEPAM 1 MG TAB GTB PRN ×3 (08:36→21:09)
[2018-11-22] MEDS: KETOCONAZOLE 2% SHAMPOO 120 ML BTL TOP SCH ×2 (09:10→20:11)
[2018-11-22] MEDS: MEROPENEM 1 GM/50ML(PMX) 50 ML IVPB SCH ×2 (09:10→20:09)
[2018-11-22] MEDS: BETAMETHASONE/CLOTRIMAZOLE 15 GM CR TOP SCH ×2 (09:10→20:11)
[2018-11-22] MEDS: ENOXAPARIN 40 MG/0.4 ML SYG SC SCH (09:19)
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
[2018-11-22] MEDS: MIRTAZAPINE 15 MG TAB PO SCH (20:09)
[2018-11-22] MEDS: ONDANSETRON 4 MG INJ IV PRN (20:09)
[2018-11-23] VITALS (23 sets, daily range): BP systolic 84–152; BP diastolic 62–100; PULSE 61–97; RESP 16–23
[2018-11-23] MEDS: VANCOMYCIN 650 MG in SOD CHLORIDE 0.9% 150 ML IVPB SCH ×4 (00:52→22:59)
[2018-11-23] MEDS: ACETAMINOPHEN 650MG/20.3ML CUP GTB PRN ×5 (01:01→21:14)
[2018-11-23] MEDS: HYDROmorphONE 2 MG TAB PO PRN ×5 (01:46→21:15)
[2018-11-23] MEDS: PANTOPRAZOLE (EC) 40 MG TAB PO SCH (06:02)
[2018-11-23] MEDS: MIDODRINE 5 MG TAB GTB SCH ×3 (06:03→21:15)
[2018-11-23] MEDS: ALBUTEROL HFA 8 GM INHALER INH PRN ×2 (06:08→19:58)
[2018-11-23] MEDS: BETAMETHASONE/CLOTRIMAZOLE 15 GM CR TOP SCH ×2 (08:18→21:00)
[2018-11-23] MEDS: KETOCONAZOLE 2% SHAMPOO 120 ML BTL TOP SCH ×2 (08:18→21:00)
[2018-11-23] MEDS: MEROPENEM 1 GM/50ML(PMX) 50 ML IVPB SCH ×2 (08:18→21:14)
[2018-11-23] MEDS: ONDANSETRON 4 MG INJ IV PRN ×3 (08:18→21:14)
[2018-11-23] MEDS: ENOXAPARIN 40 MG/0.4 ML SYG SC SCH (08:35)
[2018-11-23] MEDS: LORAZEPAM 1 MG TAB GTB PRN ×3 (10:01→22:58)
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
[2018-11-23] MEDS: MIRTAZAPINE 15 MG TAB PO SCH (21:15)
[2018-11-24] VITALS (24 sets, daily range): BP systolic 84–147; BP diastolic 61–92; PULSE 52–109; RESP 15–22
[2018-11-24] MEDS: ACETAMINOPHEN 650MG/20.3ML CUP GTB PRN ×6 (02:30→21:52)
[2018-11-24] MEDS: ONDANSETRON 4 MG INJ IV PRN ×2 (02:31→07:52)
[2018-11-24] MEDS: HYDROmorphONE 2 MG TAB PO PRN ×5 (02:31→21:42)
[2018-11-24] MEDS: ALBUTEROL HFA 8 GM INHALER INH PRN ×2 (03:50→20:02)
[2018-11-24] MEDS: MIDODRINE 5 MG TAB GTB SCH ×3 (05:29→20:34)
[2018-11-24] MEDS: PANTOPRAZOLE (EC) 40 MG TAB PO SCH (05:30)
[2018-11-24] MEDS: LORAZEPAM 1 MG TAB GTB PRN ×3 (05:33→23:07)
[2018-11-24] MEDS: VANCOMYCIN 650 MG in SOD CHLORIDE 0.9% 150 ML IVPB SCH ×3 (06:18→23:13)
[2018-11-24] MEDS: KETOCONAZOLE 2% SHAMPOO 120 ML BTL TOP SCH ×2 (09:00→20:26)
[2018-11-24] MEDS: BETAMETHASONE/CLOTRIMAZOLE 15 GM CR TOP SCH ×2 (09:00→20:26)
[2018-11-24] MEDS: MEROPENEM 1 GM/50ML(PMX) 50 ML IVPB SCH ×2 (09:09→20:13)
[2018-11-24] MEDS: ENOXAPARIN 40 MG/0.4 ML SYG SC SCH (09:27)
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
--- NOTE | 2018-11-24 12:13 | CONS ---
Date/Time of Note Date/Time of Note DATE: 11/24/18 TIME: 12:13 Consultation Date/Type/Reason Admit Date/Time Sep 23, 2018 at 18:14 Initial Consult Date 09/25/18 Requesting Provider: MOISES CARLSON MD Exam/Review of Systems Vital Signs Vitals Vital Signs Date Temp Pulse Resp B/P (MAP) Pulse Ox O2 O2 Flow FiO2 Time Delivery Rate 11/24/18 97.6 106 22 147/92 96 Mechanical 11:34 (110) Ventilator Trach Collar 11/24/18 30 11:23 Exam VS reviewed - stable Medications Medications Current Medications Docusate Sodium (Colace Liquid Cup) 100 mg BID PRN GTB CONSTIPATION Last administered on 11/17/18at 18:42; Admin Dose 100 MG; Start 10/07/18 at 03:30 Lorazepam (Ativan) 1 mg Q6H PRN GTB ANXIETY Last administered on 11/24/18at 05:33; Admin Dose 1 MG; Start 10/09/18 at 20:30 Mirtazapine (Remeron) 15 mg HS PO Last administered on 11/23/18at 21:15; Admin Dose 15 MG; Start 10/23/18 at 22:00 Enoxaparin Sodium (Lovenox) 40 mg DAILY SC Last administered on 11/24/18at 09:27; Admin Dose 40 MG; Start 10/26/18 at 12:00 Metoprolol Tartrate (Lopressor) 5 mg Q4H PRN IV HR>110 Hold SBP<100; Start 10/30/18 at 13:30 Fentanyl (Duragesic 25 Mcg/Hr Patch) 1 patch Q72H TRANSDERM Last administered on 11/24/18at 10:20; Admin Dose 1 PATCH; Start 11/03/18 at 09:00 Albuterol (Ventolin Hfa) 4 puff Q2H PRN INH SHORTNESS OF BREATH Last administered on 11/24/18at 03:50; Admin Dose 4 PUFF; Start 11/03/18 at 15:30 Ketoconazole (Nizoral Shampoo) 1 applic Q12 TOP Last administered on 11/23/18at 08:18; Admin Dose 1 APPLIC; Start 11/08/18 at 12:00 Betamethasone/ Clotrimazole (Lotrisone Cr) 1 applic BID TOP Last administered on 11/23/18 08:18; Admin Dose 1 APPLIC; Start 11/08/18 at 21:00 Acetaminophen (Tylenol Liquid) 650 mg Q4H PRN GTB MILD PAIN(1-3)OR ELEVATED TEMP Last administered on 11/24/18 07:52; Admin Dose 650 MG; Start 11/08/18 at 15:30 Ondansetron HCl (Zofran Inj) 4 mg Q6H PRN IV NAUSEA AND/OR VOMITING Last administered on 11/24/18 07:52; Admin Dose 4 MG; Start 11/09/18 at 06:30 Pantoprazole (Protonix Tab) 40 mg DAILY@06 PO Last administered on 11/24/18 05:30; Admin Dose 40 MG; Start 11/10/18 at 06:00 Al Hydrox/Mg Hydrox/Simethicone (Mag-Al Plus) 30 ml Q6H PRN PO GASTROINTESTINAL UPSET Last administered on 11/09/18at 09:16; Admin Dose 30 ML; Start 11/09/18 at 09:00 Midodrine (Proamatine) 30 mg Q8 GTB Last administered on 11/24/18at 05:29; Admin Dose 30 MG; Start 11/12/18 at 15:00 Vancomycin HCl (Vanco Iv Per Pharmacy) VANCOMYCIN PER PHARMACY PER PROTOCOL XX ; Start 11/20/18 at 12:30 Meropenem/Sodium Chloride 50 ml @ 100 mls/hr Q12 IVPB Last administered on 11/24/18at 09:09; Admin Dose 100 MLS/HR; Start 11/20/18 at 12:30 Hydromorphone HCl (Dilaudid) 1 mg Q4H PRN PO SEVERE PAIN LEVEL 7-10 Last administered on 11/24/18 07:52; Admin Dose 1 MG; Start 11/20/18 at 15:00 Vancomycin HCl 650 mg/Sodium Chloride 150 ml @ 100 mls/hr Q8H IVPB Last administered on 11/24/18 06:18; Admin Dose 100 MLS/HR; Start 11/20/18 at 23:00 Miscellaneous Information (*Rx Drug Level Order Reminder*) VANCO TROUGH @ 1,400 ON ... ONCE ONCE XX ; Start 11/24/18 at 14:00; Stop 11/24/18 at 14:01 BANDAR BELLO MD Nov 24, 2018 12:13
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
[2018-11-24] MEDS: MIRTAZAPINE 15 MG TAB PO SCH (20:13)
[2018-11-25] VITALS (26 sets, daily range): BP systolic 79–102; BP diastolic 51–80; PULSE 66–102; RESP 16–22
[2018-11-25] MEDS: ACETAMINOPHEN 650MG/20.3ML CUP GTB PRN ×5 (03:08→20:26)
[2018-11-25] MEDS: HYDROmorphONE 2 MG TAB PO PRN ×5 (03:09→20:27)
[2018-11-25] MEDS: ALBUTEROL HFA 8 GM INHALER INH PRN ×4 (03:17→21:08)
[2018-11-25] MEDS: PANTOPRAZOLE (EC) 40 MG TAB PO SCH (06:58)
[2018-11-25] MEDS: VANCOMYCIN 650 MG in SOD CHLORIDE 0.9% 150 ML IVPB SCH ×3 (06:58→23:31)
[2018-11-25] MEDS: MIDODRINE 5 MG TAB GTB SCH ×3 (08:07→20:26)
[2018-11-25] MEDS: BETAMETHASONE/CLOTRIMAZOLE 15 GM CR TOP SCH ×2 (08:52→21:00)
[2018-11-25] MEDS: KETOCONAZOLE 2% SHAMPOO 120 ML BTL TOP SCH ×2 (08:52→21:00)
[2018-11-25] MEDS: MEROPENEM 1 GM/50ML(PMX) 50 ML IVPB SCH ×2 (08:52→20:26)
[2018-11-25] MEDS: ENOXAPARIN 40 MG/0.4 ML SYG SC SCH (09:02)
[2018-11-25] MEDS: LORAZEPAM 1 MG TAB GTB PRN ×2 (09:37→18:15)
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
[2018-11-25] MEDS: ONDANSETRON 4 MG INJ IV PRN ×2 (12:06→18:15)
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
[2018-11-26] VITALS (24 sets, daily range): BP systolic 83–142; BP diastolic 64–91; PULSE 52–107; RESP 14–27
[2018-11-26] MEDS: HYDROmorphONE 2 MG TAB PO PRN ×5 (00:12→22:24)
[2018-11-26] MEDS: LORAZEPAM 1 MG TAB GTB PRN ×2 (00:51→15:22)
[2018-11-26] MEDS: ALBUTEROL HFA 8 GM INHALER INH PRN ×4 (01:16→19:45)
[2018-11-26] MEDS: MIDODRINE 5 MG TAB GTB SCH ×3 (05:16→20:56)
[2018-11-26] MEDS: PANTOPRAZOLE (EC) 40 MG TAB PO SCH (05:17)
[2018-11-26] MEDS: VANCOMYCIN 650 MG in SOD CHLORIDE 0.9% 150 ML IVPB SCH ×2 (06:09→15:24)
[2018-11-26] MEDS: MEROPENEM 1 GM/50ML(PMX) 50 ML IVPB SCH ×2 (08:24→20:55)
[2018-11-26] MEDS: ENOXAPARIN 40 MG/0.4 ML SYG SC SCH (08:29)
[2018-11-26] MEDS: KETOCONAZOLE 2% SHAMPOO 120 ML BTL TOP SCH ×2 (08:38→20:57)
[2018-11-26] MEDS: BETAMETHASONE/CLOTRIMAZOLE 15 GM CR TOP SCH ×2 (08:38→20:57)
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
[2018-11-26] MEDS: ACETAMINOPHEN 650MG/20.3ML CUP GTB PRN ×2 (11:34→20:54)
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
[2018-11-27] VITALS (22 sets, daily range): BP systolic 80–134; BP diastolic 60–90; PULSE 49–107; RESP 14–27
[2018-11-27] MEDS: VANCOMYCIN 650 MG in SOD CHLORIDE 0.9% 150 ML IVPB SCH ×3 (01:30→16:37)
[2018-11-27] MEDS: ACETAMINOPHEN 650MG/20.3ML CUP GTB PRN ×5 (02:10→23:14)
[2018-11-27] MEDS: ALBUTEROL HFA 8 GM INHALER INH PRN ×5 (03:06→20:00)
[2018-11-27] MEDS: HYDROmorphONE 2 MG TAB PO PRN ×4 (03:13→21:20)
[2018-11-27] MEDS: PANTOPRAZOLE (EC) 40 MG TAB PO SCH (05:25)
[2018-11-27] MEDS: MIDODRINE 5 MG TAB GTB SCH ×3 (05:26→21:19)
[2018-11-27] MEDS: MEROPENEM 1 GM/50ML(PMX) 50 ML IVPB SCH ×2 (08:24→21:16)
[2018-11-27] MEDS: KETOCONAZOLE 2% SHAMPOO 120 ML BTL TOP SCH ×2 (08:25→21:00)
[2018-11-27] MEDS: BETAMETHASONE/CLOTRIMAZOLE 15 GM CR TOP SCH ×2 (08:26→21:00)
[2018-11-27] MEDS: ENOXAPARIN 40 MG/0.4 ML SYG SC SCH (08:52)
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
[2018-11-27] MEDS: FENTAnyl PATCH 50 MCG/HR TRANSDERM SCH (12:47)
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
[2018-11-27] MEDS: LORAZEPAM 1 MG TAB GTB PRN (16:42)
[2018-11-27] MEDS: ONDANSETRON 4 MG INJ IV PRN (22:41)
[2018-11-28] VITALS (23 sets, daily range): BP systolic 84–95; BP diastolic 55–68; PULSE 60–106; RESP 14–25
[2018-11-28] MEDS: VANCOMYCIN 650 MG in SOD CHLORIDE 0.9% 150 ML IVPB SCH ×4 (00:15→22:15)
[2018-11-28] MEDS: ALBUTEROL HFA 8 GM INHALER INH PRN ×3 (01:32→19:44)
[2018-11-28] MEDS: HYDROmorphONE 2 MG TAB PO PRN ×5 (02:00→22:16)
[2018-11-28] MEDS: MIDODRINE 5 MG TAB GTB SCH ×3 (06:35→23:37)
[2018-11-28] MEDS: PANTOPRAZOLE (EC) 40 MG TAB PO SCH (06:35)
[2018-11-28] MEDS: BETAMETHASONE/CLOTRIMAZOLE 15 GM CR TOP SCH ×2 (09:38→20:55)
[2018-11-28] MEDS: KETOCONAZOLE 2% SHAMPOO 120 ML BTL TOP SCH ×2 (09:38→20:56)
[2018-11-28] MEDS: ACETAMINOPHEN 650MG/20.3ML CUP GTB PRN ×4 (09:44→23:43)
[2018-11-28] MEDS: LORAZEPAM 1 MG TAB GTB PRN ×3 (09:44→21:12)
[2018-11-28] MEDS: ONDANSETRON 4 MG INJ IV PRN ×2 (09:44→18:09)
[2018-11-28] MEDS: MEROPENEM 1 GM/50ML(PMX) 50 ML IVPB SCH ×2 (09:44→20:55)
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
[2018-11-28] MEDS ORDERED: MIDODRINE 2.5 MG TAB GTB ONE (16:30)
[2018-11-28] MEDS ORDERED: MIDODRINE 2.5 MG TAB PO ONE (16:30)
[2018-11-28] MEDS: AL HYDROX/MG HYDROX/SIMETH 30 ML CUP PO PRN (20:55)
[2018-11-29] VITALS (23 sets, daily range): BP systolic 82–116; BP diastolic 58–90; PULSE 52–101; RESP 14–22
[2018-11-29] MEDS: HYDROmorphONE 2 MG TAB PO PRN ×5 (01:58→20:09)
[2018-11-29] MEDS: AL HYDROX/MG HYDROX/SIMETH 30 ML CUP PO PRN ×3 (05:19→20:01)
[2018-11-29] MEDS: PANTOPRAZOLE (EC) 40 MG TAB PO SCH (05:19)
[2018-11-29] MEDS: MIDODRINE 2.5 MG TAB GTB SCH ×2 (05:37→13:57)
[2018-11-29] MEDS: ONDANSETRON 4 MG INJ IV PRN ×2 (06:10→17:06)
[2018-11-29] MEDS: LORAZEPAM 1 MG TAB GTB PRN ×2 (06:10→13:57)
[2018-11-29] MEDS: VANCOMYCIN 650 MG in SOD CHLORIDE 0.9% 150 ML IVPB SCH ×3 (06:11→22:03)
[2018-11-29] MEDS: BETAMETHASONE/CLOTRIMAZOLE 15 GM CR TOP SCH ×2 (09:00→20:12)
[2018-11-29] MEDS: KETOCONAZOLE 2% SHAMPOO 120 ML BTL TOP SCH ×2 (09:00→20:09)
[2018-11-29] MEDS: MEROPENEM 1 GM/50ML(PMX) 50 ML IVPB SCH ×2 (09:37→20:09)
[2018-11-29] MEDS: ACETAMINOPHEN 650MG/20.3ML CUP GTB PRN ×4 (09:42→22:09)
--- NOTE | 2018-11-29 09:44 | CONS ---
Date/Time of Note Date/Time of Note DATE: 11/29/18 TIME: 09:38 Assessment/Plan Assessment/Plan Hospital Course ID PROGRESS NOTE CURRENT ABX: DAY # => + Merrem + Vanco IV s/p Zyvox s/p BACTRIM + Tobra INH s/p Zyvox #5 + Merrem #7 s/p Vanco IV + Cefepime 11/29/18 0559 24H INTERVAL SUMMARY * Alert, awake, responsive, currently afebrile, no new issues * WBC normalized, Intermittent fevers TMax yesterday 101.4, B/P drops after he is given ativan/dilaudid per nurse * Ongoing refusal of nursing interventions -- Patient refuses wound care, refused to be turned * INDWELLINGS: Trach, PEG, right-sided PICC line, Patel catheter. * MICROBIOLOGY: * 11/03 BCx (-), 11/03 Urine (-) * Wound cultures growing VRE Klebsiella pneumoniae ESBL, gram-negative rods * DIAGNOSTICS: * 11/06/18 CXR: 1. Consolidative infiltrates and/or atelectasis in the right left lower lobes.2. Small right pleural effusion.3. Satisfactory positioning of the PICC line catheter and tracheostomy tube. MICRO * 10/17/18 TR[facility] PATHOGENS RESPIRATORY CULTURE Final Organism 1 SERRATIA MARCESCENS QUANTITY 2+ Organism 2 ACHROMOBACTER SPECIES QUANTITY 1+ ACHROMOBACTER SPECIES: No definitve guidelines. Potentially active agents include mezlocillin, piperacillin, ticarcillin/clavulanic acid, ceftazidime, imipenem, trimethoprim/sulfamethoxazole, and quinolones. S [facility] RX --------- --- CEFEPIME <=1 S CEFOTAXIME R CIPROFLOXACIN 2 I GENTAMICIN <=1 S IMIPENEM S LEVOFLOXACIN 4 I TOBRAMYCIN 2 S TRIMETHOPRIM/SULFAMETHOXAZOLE <=20 S PIPERACILLIN/TAZOBACTAM I * 10/16/18 sacral decub: WOUND CULTURE Final Organism 1 ESCHERICHIA COLI QUANTITY SCANT GROWTH Organism 2 K PNEUMO ESBL QUANTITY SCANT GROWTH . MULTI DRUG RESISTANT ORGANISM Organism 3 PSEUDOMONAS SPECIES QUANTITY RARE Organism 4 VANCO RESISTANT ENTEROCOCCUS QUANTITY SCANT GROWTH . MULTI DRUG RESISTANT ORGANISM PHYSICAL EXAMINATION: GENERAL: Afebrile, VSS, HEENT: AT, NC, anicteric = facial seborrheic dermatitis NECK: Supple, trach-> secure CHEST: Equal chest rise bilaterally, without dyspnea on observation HEART: Pulse RRR ABDOMEN: Soft / NT EXTREMITIES: Warm, dry, BLEXT atrophy + contracted with multiple pressure sores. SKIN: No rash, mutiple tattoos, decubs = see photos ID ASSESSMENT 28 yo M admit with: 1. SIRS w/Recurrent sepsis -- blood cx remain negative, patient with ongoing PNA, decubs 2. Chronic respiratory failure. 3. Aspiration HCAP = VAP * Retained secretions w/mucous * Dysphagia w/peg 4. Hx of UTI -- indwelling FC 5. Multiple chronic wounds status post 8 weeks antibiotics for sacral osteomyelitis. 6. Worsening facial seborrheic dermatitis * Rx initiated 11/08/18 == >Ketoconazole Shampoo followed by Lotrisone topical. 7. Negative HIV=> HIV RNA by PCR on previous admission negative (-)MRSA Nares ABX ALLERGIES: NKDA INVASIVES: PICC, Trach, Peg, FC CURRENT ABX: DAY == + Merrem + Vanco IV s/p Zyvox s/p BACTRIM + Tobra INH s/p Zyvox #5 + Merrem #7 s/p Vanco IV + Cefepime ID RECOMMENDATIONS/PLAN: Continue current ABX Repeat BCx for TMax > 101.5 . . Result Diagram: 11/29/18 0559 Results 24hrs Laboratory Tests Test 11/29/18 05:59 Blood Urea Nitrogen 28 H Creatinine 0.21 L Consultation Date/Type/Reason Admit Date/Time Sep 23, 2018 at 18:14 Initial Consult Date 09/25/18 Type of Consult ID Requesting Provider: MOISES CARLSON MD Exam/Review of Systems Vital Signs Vitals Vital Signs Date Temp Pulse Resp B/P (MAP) Pulse Ox O2 O2 Flow FiO2 Time Delivery Rate 11/29/18 92 18 100 30 09:33 11/29/18 97.3 94/66 (75) Mechanical 08:03 Ventilator Intake and Output 11/28/18 11/28/18 11/29/18 1515:00 23:00 07:00 IntakeIntake Total 850 ml 1050 ml 350 ml OutputOutput Total 1800 ml 1100 ml 400 ml BalanceBalance -950 ml -50 ml -50 ml Medications Medications Current Medications Docusate Sodium (Colace Liquid Cup) 100 mg BID PRN GTB CONSTIPATION Last admi nistered on 11/17/18 18:42; Admin Dose 100 MG; Start 10/07/18 at 03:30 Lorazepam (Ativan) 1 mg Q6H PRN GTB ANXIETY Last administered on 11/29/18 06:10; Admin Dose 1 MG; Start 10/09/18 at 20:30 Metoprolol Tartrate (Lopressor) 5 mg Q4H PRN IV HR>110 Hold SBP<100; Start 10/30/18 at 13:30 Albuterol (Ventolin Hfa) 4 puff Q2H PRN INH SHORTNESS OF BREATH Last administered on 11/28/18 19:44; Admin Dose 4 PUFF; Start 11/03/18 at 15:30 Ketoconazole (Nizoral Shampoo) 1 applic Q12 TOP Last administered on 11/28/18 09:38; Admin Dose 1 APPLIC; Start 11/08/18 at 12:00 Betamethasone/ Clotrimazole (Lotrisone Cr) 1 applic BID TOP Last administered on 11/28/18 09:38; Admin Dose 1 APPLIC; Start 11/08/18 at 21:00 Acetaminophen (Tylenol Liquid) 650 mg Q4H PRN GTB MILD PAIN(1-3)OR ELEVATED TEMP Last administered on 11/28/18 23:43; Admin Dose 650 MG; Start 11/08/18 at 15:30 Ondansetron HCl (Zofran Inj) 4 mg Q6H PRN IV NAUSEA AND/OR VOMITING Last administered on 11/29/18 06:10; Admin Dose 4 MG; Start 11/09/18 at 06:30 Pantoprazole (Protonix Tab) 40 mg DAILY@06 PO Last administered on 11/29/18 05:19; Admin Dose 40 MG; Start 11/10/18 at 06:00 Al Hydrox/Mg Hydrox/Simethicone (Mag-Al Plus) 30 ml Q6H PRN PO GASTROINTESTINAL UPSET Last administered on 11/29/18 05:19; Admin Dose 30 ML; Start 11/09/18 at 09:00 Midodrine (Proamatine) 30 mg Q8 GTB Last administered on 11/28/18 23:37; Admin Dose 30 MG; Start 11/12/18 at 15:00; Status Hold Vancomycin HCl (Vanco Iv Per Pharmacy) VANCOMYCIN PER PHARMACY PER PROTOCOL XX ; Start 11/20/18 at 12:30 Meropenem/Sodium Chloride 50 ml @ 100 mls/hr Q12 IVPB Last administered on 11/28/18at 20:55; Admin Dose 100 MLS/HR; Start 11/20/18 at 12:30 Hydromorphone HCl (Dilaudid) 1 mg Q4H PRN PO SEVERE PAIN LEVEL 7-10 Last administered on 11/29/18at 06:10; Admin Dose 1 MG; Start 11/20/18 at 15:00 Vancomycin HCl 650 mg/Sodium Chloride 150 ml @ 100 mls/hr Q8H IVPB Last administered on 11/29/18at 06:11; Admin Dose 100 MLS/HR; Start 11/20/18 at 23:00 Fentanyl (Duragesic 50 Mcg/Hr Patch) 1 patch Q72H TRANSDERM Last administered on 11/27/18at 12:47; Admin Dose 1 PATCH; Start 11/27/18 at 09:00 Midodrine (Proamatine) 30 mg Q8 GTB Last administered on 11/29/18at 05:37; Admin Dose 30 MG; Start 11/29/18 at 06:00 BENIGNO BHARDWAJ NP Nov 29, 2018 09:44
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
[2018-11-29] MEDS: ALBUTEROL HFA 8 GM INHALER INH PRN ×2 (17:20→19:14)
[2018-11-29] MEDS: MIDODRINE 5 MG TAB GTB SCH (22:02)
[2018-11-30] VITALS (22 sets, daily range): BP systolic 89–131; BP diastolic 64–95; PULSE 57–95; RESP 14–23
[2018-11-30] MEDS: HYDROmorphONE 2 MG TAB PO PRN ×6 (00:04→21:22)
[2018-11-30] MEDS: ALBUTEROL HFA 8 GM INHALER INH PRN ×5 (00:53→23:52)
[2018-11-30] MEDS: LORAZEPAM 1 MG TAB GTB PRN ×4 (01:05→21:22)
[2018-11-30] MEDS: ONDANSETRON 4 MG INJ IV PRN (01:05)
[2018-11-30] MEDS: ACETAMINOPHEN 650MG/20.3ML CUP GTB PRN ×3 (04:04→23:15)
[2018-11-30] MEDS ORDERED: LANSOPRAZOLE 15 MG CAP GTB SCH (06:00)
[2018-11-30] MEDS: LANSOPRAZOLE 30 MG CAP GTB SCH (06:11)
[2018-11-30] MEDS: MIDODRINE 5 MG TAB GTB SCH ×3 (06:12→21:36)
[2018-11-30] MEDS: VANCOMYCIN 650 MG in SOD CHLORIDE 0.9% 150 ML IVPB SCH ×3 (06:17→22:28)
[2018-11-30] MEDS: MEROPENEM 1 GM/50ML(PMX) 50 ML IVPB SCH ×2 (08:00→21:21)
[2018-11-30] MEDS: BETAMETHASONE/CLOTRIMAZOLE 15 GM CR TOP SCH ×2 (09:00→21:31)
[2018-11-30] MEDS: KETOCONAZOLE 2% SHAMPOO 120 ML BTL TOP SCH ×2 (09:00→21:00)
[2018-11-30] MEDS: FENTAnyl PATCH 50 MCG/HR TRANSDERM SCH (10:39)
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
--- NOTE | 2018-11-30 19:39 | CONS ---
Date/Time of Note Date/Time of Note DATE: 11/30/18 TIME: 19:38 Assessment/Plan Assessment/Plan Hospital Course ID PROGRESS NOTE CURRENT ABX: DAY # => + Merrem + Vanco IV s/p Zyvox s/p BACTRIM + Tobra INH s/p Zyvox #5 + Merrem #7 s/p Vanco IV + Cefepime 24H INTERVAL SUMMARY * Currently sleeping, low grade temps, WBC up -- intermittent SIRS, sepsis ongoing * B/P drops after he is given ativan/dilaudid per nurse * Ongoing refusal of nursing interventions -- Patient refuses wound care, refused to be turned * INDWELLINGS: Trach, PEG, right-sided PICC line, Patel catheter. * MICROBIOLOGY: * 11/03 BCx (-), 11/03 Urine (-) * Wound cultures growing VRE Klebsiella pneumoniae ESBL, gram-negative rods * DIAGNOSTICS: * 11/06/18 CXR: 1. Consolidative infiltrates and/or atelectasis in the right left lower lobes.2. Small right pleural effusion.3. Satisfactory positioning of the PICC line catheter and tracheostomy tube. MICRO * 10/17/18 TRACH PATHOGENS RESPIRATORY CULTURE Final Organism 1 SERRATIA MARCESCENS QUANTITY 2+ Organism 2 ACHROMOBACTER SPECIES QUANTITY 1+ ACHROMOBACTER SPECIES: No definitve guidelines. Potentially active agents include mezlocillin, piperacillin, ticarcillin/clavulanic acid, ceftazidime, imipenem, trimethoprim/sulfamethoxazole, and quinolones. [facility] RX --------- --- CEFEPIME <=1 S CEFOTAXIME R CIPROFLOXACIN 2 I GENTAMICIN <=1 S IMIPENEM S LEVOFLOXACIN 4 I TOBRAMYCIN 2 S TRIMETHOPRIM/SULFAMETHOXAZOLE <=20 S PIPERACILLIN/TAZOBACTAM I * 10/16/18 sacral decub: WOUND CULTURE Final Organism 1 ESCHERICHIA COLI QUANTITY SCANT GROWTH Organism 2 K PNEUMO ESBL QUANTITY SCANT GROWTH . MULTI DRUG RESISTANT ORGANISM Organism 3 PSEUDOMONAS SPECIES QUANTITY RARE Organism 4 VANCO RESISTANT ENTEROCOCCUS QUANTITY SCANT GROWTH . MULTI DRUG RESISTANT ORGANISM PHYSICAL EXAMINATION: GENERAL: Afebrile, VSS, HEENT: AT, NC, anicteric = facial seborrheic dermatitis NECK: Supple, trach-> secure CHEST: Equal chest rise bilaterally, without dyspnea on observation HEART: Pulse RRR ABDOMEN: Soft / NT EXTREMITIES: Warm, dry, BLEXT atrophy + contracted with multiple pressure sores. SKIN: No rash, mutiple tattoos, decubs = see photos ID ASSESSMENT 28 yo M admit with: 1. SIRS w/Recurrent sepsis -- blood cx remain negative, patient with ongoing PNA, decubs 2. Chronic respiratory failure. 3. Aspiration HCAP = VAP * Retained secretions w/mucous * Dysphagia w/peg 4. Hx of UTI -- indwelling FC 5. Multiple chronic wounds status post 8 weeks antibiotics for sacral osteomyelitis. 6. Worsening facial seborrheic dermatitis * Rx initiated 11/08/18 == >Ketoconazole Shampoo followed by Lotrisone topical. 7. Negative HIV=> HIV RNA by PCR on previous admission negative (-)MRSA Nares ABX ALLERGIES: NKDA INVASIVES: PICC, Trach, Peg, FC CURRENT ABX: DAY == + Merrem + Vanco IV s/p Zyvox s/p BACTRIM + Tobra INH s/p Zyvox #5 + Merrem #7 s/p Vanco IV + Cefepime ID RECOMMENDATIONS/PLAN: Continue current ABX Repeat BCx for TMax > 101.5 . . Result Diagram: 11/30/18 0609 11/30/18 0609 Results 24hrs Laboratory Tests Test 11/30/18 06:09 11/30/18 13:50 White Blood Count 12.1 #H Red Blood Count 3.06 L Hemoglobin 9.6 L Hematocrit 29.3 L Mean Corpuscular Volume 95.8 Mean Corpuscular Hemoglobin 31.4 Mean Corpuscular Hemoglobin Concent 32.8 Red Cell Distribution Width 14.9 H Platelet Count 434 #H Mean Platelet Volume 8.5 Immature Granulocytes % 0.500 H Neutrophils % 68.4 Lymphocytes % 21.2 Monocytes % 6.6 Eosinophils % 2.6 Basophils % 0.7 Nucleated Red Blood Cells % 0.0 Immature Granulocytes # 0.060 H Neutrophils # 8.3 H Lymphocytes # 2.6 Monocytes # 0.8 Eosinophils # 0.3 Basophils # 0.1 Nucleated Red Blood Cells # 0.0 Sodium Level 138 Potassium Level 4.6 Chloride Level 98 Carbon Dioxide Level 32 H Anion Gap 8 Blood Urea Nitrogen 24 H Creatinine 0.30 L Est Glomerular Filtrat Rate mL/min > 60 Glucose Level 94 Calcium Level 9.8 Vancomycin Level Trough 14.9 Consultation Date/Type/Reason Admit Date/Time Sep 23, 2018 at 18:14 Initial Consult Date 09/25/18 Type of Consult ID Requesting Provider: MOISES CARLSON MD Exam/Review of Systems Vital Signs Vitals Vital Signs Date Temp Pulse Resp B/P (MAP) Pulse Ox O2 O2 Flow FiO2 Time Delivery Rate 11/30/18 68 20 100 30 17:00 11/30/18 98.5 89/64 (72) BIPAP 15:59 Intake and Output 11/29/18 11/29/18 11/30/18 1515:00 23:00 07:00 IntakeIntake Total 1055 ml 280 ml OutputOutput Total 1800 ml 1300 ml BalanceBalance -745 ml -1020 ml Medications Medications Current Medications Docusate Sodium (Colace Liquid Cup) 100 mg BID PRN GTB CONSTIPATION Last administered on 11/17/18at 18:42; Admin Dose 100 MG; Start 10/07/18 at 03:30 Lorazepam (Ativan) 1 mg Q6H PRN GTB ANXIETY Last administered on 11/30/18 18:02; Admin Dose 1 MG; Start 10/09/18 at 20:30 Metoprolol Tartrate (Lopressor) 5 mg Q4H PRN IV HR>110 Hold SBP<100; Start 10/30/18 at 13:30 Albuterol (Ventolin Hfa) 4 puff Q2H PRN INH SHORTNESS OF BREATH Last administered on 11/30/18 17:00; Admin Dose 4 PUFF; Start 11/03/18 at 15:30 Ketoconazole (Nizoral Shampoo) 1 applic Q12 TOP Last administered on 11/28/18 09:38; Admin Dose 1 APPLIC; Start 11/08/18 at 12:00 Betamethasone/ Clotrimazole (Lotrisone Cr) 1 applic BID TOP Last administered on 11/28/18 09:38; Admin Dose 1 APPLIC; Start 11/08/18 at 21:00 Acetaminophen (Tylenol Liquid) 650 mg Q4H PRN GTB MILD PAIN(1-3)OR ELEVATED TEMP Last administered on 11/30/18 07:59; Admin Dose 650 MG; Start 11/08/18 at 15:30 Ondansetron HCl (Zofran Inj) 4 mg Q6H PRN IV NAUSEA AND/OR VOMITING Last administered on 11/30/18 01:05; Admin Dose 4 MG; Start 11/09/18 at 06:30 Al Hydrox/Mg Hydrox/Simethicone (Mag-Al Plus) 30 ml Q6H PRN PO GASTROINTESTINAL UPSET Last administered on 11/29/18 20:01; Admin Dose 30 ML; Start 11/09/18 at 09:00 Vancomycin HCl (Vanco Iv Per Pharmacy) VANCOMYCIN PER PHARMACY PER PROTOCOL XX ; Start 11/20/18 at 12:30 Meropenem/Sodium Chloride 50 ml @ 100 mls/hr Q12 IVPB Last administered on 11/30/18 08:00; Admin Dose 100 MLS/HR; Start 11/20/18 at 12:30 Hydromorphone HCl (Dilaudid) 1 mg Q4H PRN PO SEVERE PAIN LEVEL 7-10 Last administered on 11/30/18 16:32; Admin Dose 1 MG; Start 11/20/18 at 15:00 Vancomycin HCl 650 mg/Sodium Chloride 150 ml @ 100 mls/hr Q8H IVPB Last administered on 11/30/18 15:23; Admin Dose 100 MLS/HR; Start 11/20/18 at 23:00 Fentanyl (Duragesic 50 Mcg/Hr Patch) 1 patch Q72H TRANSDERM Last administered on 11/30/18 10:39; Admin Dose 1 PATCH; Start 11/27/18 at 09:00 Midodrine (Proamatine) 30 mg Q8 GTB Last administered on 11/30/18 15:23; Admin Dose 30 MG; Start 11/29/18 at 22:00 Lansoprazole (Prevacid) 30 mg DAILY@06 GTB Last administered on 11/30/18 06:11; Admin Dose 30 MG; Start 11/30/18 at 06:00 BENIGNO BHARDWAJ NP Nov 30, 2018 19:39
[2018-12-01] VITALS (23 sets, daily range): BP systolic 86–123; BP diastolic 6–89; PULSE 63–97; RESP 14–22
[2018-12-01] MEDS: HYDROmorphONE 2 MG TAB PO PRN ×5 (01:21→19:50)
[2018-12-01] MEDS: DOCUSATE SODIUM 10 MG/ML (10ML CUP) GTB PRN (01:22)
[2018-12-01] MEDS: ACETAMINOPHEN 650MG/20.3ML CUP GTB PRN ×5 (05:01→22:17)
[2018-12-01] MEDS: MIDODRINE 5 MG TAB GTB SCH ×3 (05:01→22:17)
[2018-12-01] MEDS: LANSOPRAZOLE 30 MG CAP GTB SCH (05:02)
[2018-12-01] MEDS: LORAZEPAM 1 MG TAB GTB PRN ×2 (05:02→17:30)
[2018-12-01] MEDS: ALBUTEROL HFA 8 GM INHALER INH PRN ×3 (05:19→19:13)
[2018-12-01] MEDS: VANCOMYCIN 650 MG in SOD CHLORIDE 0.9% 150 ML IVPB SCH ×3 (06:12→22:58)
[2018-12-01] MEDS: MEROPENEM 1 GM/50ML(PMX) 50 ML IVPB SCH ×2 (08:45→20:52)
[2018-12-01] MEDS: KETOCONAZOLE 2% SHAMPOO 120 ML BTL TOP SCH ×2 (08:53→20:53)
[2018-12-01] MEDS: BETAMETHASONE/CLOTRIMAZOLE 15 GM CR TOP SCH ×3 (08:53→20:56)
--- NOTE | 2018-12-01 12:37 | CONS ---
Date/Time of Note Date/Time of Note DATE: 12/01/18 TIME: 12:33 Assessment/Plan Assessment/Plan Hospital Course ID PROGRESS NOTE CURRENT ABX: DAY # => + Merrem + Vanco IV s/p Zyvox s/p BACTRIM + Tobra INH s/p Zyvox #5 + Merrem #7 s/p Vanco IV + Cefepime 24H INTERVAL SUMMARY * Lethargic post pain meds -- awakens -- continues to refuse personal hygiene care, refuses tx for facial seborrheic dermatitis, refuses turning and wound care * Afebrile today -- WBC up recently -- intermittent SIRS, sepsis ongoing * B/P drops after he is given Ativan/Dilaudid per nurse * INDWELLINGS: Trach, PEG, right-sided PICC line, Patel catheter. * MICROBIOLOGY: * 11/03 BCx (-), 11/03 Urine (-) * Wound cultures growing VRE Klebsiella pneumoniae ESBL, gram-negative rods * DIAGNOSTICS: * 11/06/18 CXR: 1. Consolidative infiltrates and/or atelectasis in the right left lower lobes.2. Small right pleural effusion.3. Satisfactory positioning of the PICC line catheter and tracheostomy tube. MICRO * 10/17/18 TRACH PATHOGENS RESPIRATORY CULTURE Final Organism 1 SERRATIA MARCESCENS QUANTITY 2+ Organism 2 ACHROMOBACTER SPECIES QUANTITY 1+ ACHROMOBACTER SPECIES: No definitve guidelines. Potentially active agents include mezlocillin, piperacillin, ticarcillin/clavulanic acid, ceftazidime, imipenem, trimethoprim/sulfamethoxazole, and quinolones. [facility] RX --------- --- CEFEPIME <=1 S CEFOTAXIME R CIPROFLOXACIN 2 I GENTAMICIN <=1 S IMIPENEM S LEVOFLOXACIN 4 I TOBRAMYCIN 2 S TRIMETHOPRIM/SULFAMETHOXAZOLE <=20 S PIPERACILLIN/TAZOBACTAM I * 10/16/18 sacral decub: WOUND CULTURE Final Organism 1 ESCHERICHIA COLI QUANTITY SCANT GROWTH Organism 2 K PNEUMO ESBL QUANTITY SCANT GROWTH . MULTI DRUG RESISTANT ORGANISM Organism 3 PSEUDOMONAS SPECIES QUANTITY RARE Organism 4 VANCO RESISTANT ENTEROCOCCUS QUANTITY SCANT GROWTH . MULTI DRUG RESISTANT ORGANISM PHYSICAL EXAMINATION: GENERAL: Afebrile, VSS, HEENT: AT, NC, anicteric = facial seborrheic dermatitis NECK: Supple, trach-> secure CHEST: Equal chest rise bilaterally, without dyspnea on observation HEART: Pulse RRR ABDOMEN: Soft / NT EXTREMITIES: Warm, dry, BLEXT atrophy + contracted with multiple pressure sores. SKIN: No rash, mutiple tattoos, decubs = see photos ID ASSESSMENT 28 yo M admit with: 1. SIRS w/Recurrent sepsis -- blood cx remain negative, patient with ongoing PNA, decubs 2. Chronic respiratory failure. 3. Aspiration HCAP = VAP * Retained secretions w/mucous plugging * Dysphagia w/peg 4. Hx of UTI -- indwelling FC 5. Multiple chronic wounds status post 8 weeks antibiotics for sacral osteomyelitis. 6. Worsening facial seborrheic dermatitis * Rx initiated 11/08/18 == >Ketoconazole Shampoo followed by Lotrisone topical. 7. Negative HIV=> HIV RNA by PCR on previous admission negative 8. NONCOMPLIANCE with medical treatment and nursing care interventions * -- continues to refuse personal hygiene care, refuses tx for facial seborrheic dermatitis, refuses turning and wound care (-)MRSA Nares ABX ALLERGIES: NKDA INVASIVES: PICC, Trach, Peg, FC CURRENT ABX: DAY == + Merrem + Vanco IV s/p Zyvox s/p BACTRIM + Tobra INH s/p Zyvox #5 + Merrem #7 s/p Vanco IV + Cefepime ID RECOMMENDATIONS/PLAN: Continue current ABX DC planning Repeat BCx for TMax > 101.5 . . Result Diagram: 11/30/18 0609 11/30/18 0609 Results 24hrs Laboratory Tests Test 11/30/18 13:50 Vancomycin Level Trough 14.9 Consultation Date/Type/Reason Admit Date/Time Sep 23, 2018 at 18:14 Initial Consult Date 09/25/18 Type of Consult ID Requesting Provider: MOISES CARLSON MD Exam/Review of Systems Vital Signs Vitals Vital Signs Date Temp Pulse Resp B/P (MAP) Pulse Ox O2 O2 Flow FiO2 Time Delivery Rate 12/01/18 75 12:18 12/01/18 98.6 18 86/68 (74) 100 Mechanical 12:08 Ventilator 12/01/18 30 05:19 Intake and Output 11/30/18 11/30/18 12/01/18 1515:00 23:00 07:00 IntakeIntake Total 870 ml 250 ml OutputOutput Total 1800 ml 1200 ml BalanceBalance -930 ml -950 ml Medications Medications Current Medications Docusate Sodium (Colace Liquid Cup) 100 mg BID PRN GTB CONSTIPATION Last administered on 12/01/18 01:22; Admin Dose 100 MG; Start 10/07/18 at 03:30 Lorazepam (Ativan) 1 mg Q6H PRN GTB ANXIETY Last administered on 12/01/18 05:02; Admin Dose 1 MG; Start 10/09/18 at 20:30 Metoprolol Tartrate (Lopressor) 5 mg Q4H PRN IV HR>110 Hold SBP<100; Start 10/30/18 at 13:30 Albuterol (Ventolin Hfa) 4 puff Q2H PRN INH SHORTNESS OF BREATH Last adminis tered on 12/01/18 08:31; Admin Dose 4 PUFF; Start 11/03/18 at 15:30 Ketoconazole (Nizoral Shampoo) 1 applic Q12 TOP Last administered on 12/01/18 08:53; Admin Dose 1 APPLIC; Start 11/08/18 at 12:00 Betamethasone/ Clotrimazole (Lotrisone Cr) 1 applic BID TOP Last administered on 12/01/18 08:53; Admin Dose 1 APPLIC; Start 11/08/18 at 21:00 Acetaminophen (Tylenol Liquid) 650 mg Q4H PRN GTB MILD PAIN(1-3)OR ELEVATED TEMP Last administered on 12/01/18at 08:57; Admin Dose 650 MG; Start 11/08/18 at 15:30 Ondansetron HCl (Zofran Inj) 4 mg Q6H PRN IV NAUSEA AND/OR VOMITING Last administered on 11/30/18 01:05; Admin Dose 4 MG; Start 11/09/18 at 06:30 Al Hydrox/Mg Hydrox/Simethicone (Mag-Al Plus) 30 ml Q6H PRN PO GASTROINTESTINAL UPSET Last administered on 11/29/18 20:01; Admin Dose 30 ML; Start 11/09/18 at 09:00 Vancomycin HCl (Vanco Iv Per Pharmacy) VANCOMYCIN PER PHARMACY PER PROTOCOL XX ; Start 11/20/18 at 12:30 Meropenem/Sodium Chloride 50 ml @ 100 mls/hr Q12 IVPB Last administered on 12/01/18 08:45; Admin Dose 100 MLS/HR; Start 11/20/18 at 12:30 Hydromorphone HCl (Dilaudid) 1 mg Q4H PRN PO SEVERE PAIN LEVEL 7-10 Last administered on 12/01/18 10:51; Admin Dose 1 MG; Start 11/20/18 at 15:00 Vancomycin HCl 650 mg/Sodium Chloride 150 ml @ 100 mls/hr Q8H IVPB Last administered on 12/01/18 06:12; Admin Dose 100 MLS/HR; Start 11/20/18 at 23:00 Fentanyl (Duragesic 50 Mcg/Hr Patch) 1 patch Q72H TRANSDERM Last administered on 11/30/18 10:39; Admin Dose 1 PATCH; Start 11/27/18 at 09:00 Midodrine (Proamatine) 30 mg Q8 GTB Last administered on 12/01/18 05:01; Admin Dose 30 MG; Start 11/29/18 at 22:00 Lansoprazole (Prevacid) 30 mg DAILY@06 GTB Last administered on 12/01/18 05:02; Admin Dose 30 MG; Start 11/30/18 at 06:00 BENIGNO BHARDWAJ NP Dec 01, 2018 12:37
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
[2018-12-02] VITALS (22 sets, daily range): BP systolic 83–131; BP diastolic 55–95; PULSE 69–109; RESP 14–20
[2018-12-02] MEDS: HYDROmorphONE 2 MG TAB PO PRN ×6 (00:09→22:16)
[2018-12-02] MEDS: ALBUTEROL HFA 8 GM INHALER INH PRN ×5 (01:25→23:07)
[2018-12-02] MEDS: LORAZEPAM 1 MG TAB GTB PRN ×4 (02:36→22:16)
[2018-12-02] MEDS: ACETAMINOPHEN 650MG/20.3ML CUP GTB PRN ×5 (02:37→20:38)
[2018-12-02] MEDS: MIDODRINE 5 MG TAB GTB SCH ×3 (05:48→22:15)
[2018-12-02] MEDS: LANSOPRAZOLE 30 MG CAP GTB SCH (05:49)
[2018-12-02] MEDS: VANCOMYCIN 650 MG in SOD CHLORIDE 0.9% 150 ML IVPB SCH ×3 (06:53→22:15)
[2018-12-02] MEDS: KETOCONAZOLE 2% SHAMPOO 120 ML BTL TOP SCH ×2 (08:42→20:35)
[2018-12-02] MEDS: BETAMETHASONE/CLOTRIMAZOLE 15 GM CR TOP SCH ×2 (08:42→20:35)
[2018-12-02] MEDS: MEROPENEM 1 GM/50ML(PMX) 50 ML IVPB SCH ×2 (08:42→20:34)
[2018-12-02] MEDS ORDERED: POTASSIUM CHLORIDE (SR) 20 MEQ TAB PO STA (09:23)
[2018-12-02] MEDS ORDERED: MAGNESIUM SULFATE 1 GM/D5W 100 ML IVPB ONE (10:00)
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
--- NOTE | 2018-12-02 15:20 | CONS ---
Date/Time of Note Date/Time of Note DATE: 12/02/18 TIME: 15: Assessment/Plan Assessment/Plan Hospital Course ID PROGRESS NOTE CURRENT ABX: DAY # => + Merrem + Vanco IV s/p Zyvox s/p BACTRIM + Tobra INH s/p Zyvox #5 + Merrem #7 s/p Vanco IV + Cefepime 24H INTERVAL SUMMARY * Clinically status quo -- no new issues * NONCOMPLIANCE === continues to refuse personal hygiene care, refuses tx for facial seborrheic dermatitis, refuses turning and wound care * Afebrile today -- WBC up recently -- intermittent SIRS, sepsis ongoing * B/P drops after he is given Ativan/Dilaudid per nurse * INDWELLINGS: Trach, PEG, right-sided PICC line, Patel catheter. * MICROBIOLOGY: * 11/03 BCx (-), 11/03 Urine (-) * Wound cultures growing VRE Klebsiella pneumoniae ESBL, gram-negative rods * DIAGNOSTICS: * 11/06/18 CXR: 1. Consolidative infiltrates and/or atelectasis in the right left lower lobes.2. Small right pleural effusion.3. Satisfactory positioning of the PICC line catheter and tracheostomy tube. MICRO * 10/17/18 [facility] PATH[facility]ENS RESPIRATORY CULTURE Final Organism 1 SERRATIA MARCESCENS QUANTITY 2+ Organism 2 ACHROMOBACTER SPECIES QUANTITY 1+ ACHROMOBACTER SPECIES: No definitve guidelines. Potentially active agents include mezlocillin, piperacillin, ticarcillin/clavulanic acid, ceftazidime, imipenem, trimethoprim/sulfamethoxazole, and quinolones. S MARCELIZABETHCE M.I.C. RX --------- --- CEFEPIME <=1 S CEFOTAXIME R CIPROFLOXACIN 2 I GENTAMICIN <=1 S IMIPENEM S LEVOFLOXACIN 4 I TOBRAMYCIN 2 S TRIMETHOPRIM/SULFAMETHOXAZOLE <=20 S PIPERACILLIN/TAZOBACTAM I * 10/16/18 sacral decub: WOUND CULTURE Final Organism 1 ESCHERICHIA COLI QUANTITY SCANT GROWTH Organism 2 K PNEUMO ESBL QUANTITY SCANT GROWTH . MULTI DRUG RESISTANT ORGANISM Organism 3 PSEUDOMONAS SPECIES QUANTITY RARE Organism 4 VANCO RESISTANT ENTEROCOCCUS QUANTITY SCANT GROWTH . MULTI DRUG RESISTANT ORGANISM PHYSICAL EXAMINATION: GENERAL: Afebrile, VSS, HEENT: AT, NC, anicteric = facial seborrheic dermatitis NECK: Supple, trach-> secure CHEST: Equal chest rise bilaterally, without dyspnea on observation HEART: Pulse RRR ABDOMEN: Soft / NT EXTREMITIES: Warm, dry, BLEXT atrophy + contracted with multiple pressure sores. SKIN: No rash, mutiple tattoos, decubs = see photos ID ASSESSMENT 28 yo M admit with: 1. SIRS w/Recurrent sepsis -- blood cx remain negative, patient with ongoing PNA, decubs 2. Chronic respiratory failure. 3. Aspiration HCAP = VAP * Retained secretions w/mucous plugging * Dysphagia w/peg 4. Hx of UTI -- indwelling FC 5. Multiple chronic wounds status post 8 weeks antibiotics for sacral osteomyelitis. 6. Worsening facial seborrheic dermatitis * Rx initiated 11/08/18 == >Ketoconazole Shampoo followed by Lotrisone topical. 7. Negative HIV=> HIV RNA by PCR on previous admission negative 8. NONCOMPLIANCE with medical treatment and nursing care interventions * -- continues to refuse personal hygiene care, refuses tx for facial seborrheic dermatitis, refuses turning and wound care (-)MRSA Nares ABX ALLERGIES: NKDA INVASIVES: PICC, Trach, Peg, FC CURRENT ABX: DAY == + Merrem + Vanco IV s/p Zyvox s/p BACTRIM + Tobra INH s/p Zyvox #5 + Merrem #7 s/p Vanco IV + Cefepime ID RECOMMENDATIONS/PLAN: Continue current ABX DC planning Repeat BCx for TMax > 101.5 . . Result Diagram: 11/30/18 0609 11/30/18 0609 Results 24hrs Laboratory Tests Test 12/02/18 06:57 Lab Scanned Report REFERENCE LAB Consultation Date/Type/Reason Admit Date/Time Sep 23, 2018 at 18:14 Initial Consult Date 09/25/18 Type of Consult ID Requesting Provider: MOISES CARLSON MD Exam/Review of Systems Vital Signs Vitals Vital Signs Date Temp Pulse Resp B/P (MAP) Pulse Ox O2 O2 Flow FiO2 Time Delivery Rate 12/02/18 109 13:19 12/02/18 18 100 30 13:05 12/02/18 98.0 84/55 (65) 12:10 12/01/18 Mechanical 15:26 Ventilator Intake and Output 12/01/18 12/01/18 12/02/18 1515:00 23:00 07:00 IntakeIntake Total 50 ml 1000 ml OutputOutput Total 1300 ml BalanceBalance 50 ml -300 ml Medications Medications Current Medications Docusate Sodium (Colace Liquid Cup) 100 mg BID PRN GTB CONSTIPATION Last administered on 12/01/18 01:22; Admin Dose 100 MG; Start 10/07/18 at 03:30 Lorazepam (Ativan) 1 mg Q6H PRN GTB ANXIETY Last administered on 12/02/18 09:41; Admin Dose 1 MG; Start 10/09/18 at 20:30 Metoprolol Tartrate (Lopressor) 5 mg Q4H PRN IV HR>110 Hold SBP<100; Start 10/30/18 at 13:30 Albuterol (Ventolin Hfa) 4 puff Q2H PRN INH SHORTNESS OF BREATH Last administered on 12/02/18 13:01; Admin Dose 4 PUFF; Start 11/03/18 at 15:30 Ketoconazole (Nizoral Shampoo) 1 applic Q12 TOP Last administered on 12/01/18at 08:53; Admin Dose 1 APPLIC; Start 11/08/18 at 12:00 Betamethasone/ Clotrimazole (Lotrisone Cr) 1 applic BID TOP Last administered on 12/01/18 08:53; Admin Dose 1 APPLIC; Start 11/08/18 at 21:00 Acetaminophen (Tylenol Liquid) 650 mg Q4H PRN GTB MILD PAIN(1-3)OR ELEVATED TEMP Last administered on 12/02/18 11:43; Admin Dose 650 MG; Start 11/08/18 at 15:30 Ondansetron HCl (Zofran Inj) 4 mg Q6H PRN IV NAUSEA AND/OR VOMITING Last administered on 11/30/18 01:05; Admin Dose 4 MG; Start 11/09/18 at 06:30 Al Hydrox/Mg Hydrox/Simethicone (Mag-Al Plus) 30 ml Q6H PRN PO GASTROINTESTINAL UPSET Last administered on 11/29/18 20:01; Admin Dose 30 ML; Start 11/09/18 at 09:00 Vancomycin HCl (Vanco Iv Per Pharmacy) VANCOMYCIN PER PHARMACY PER PROTOCOL XX ; Start 11/20/18 at 12:30 Meropenem/Sodium Chloride 50 ml @ 100 mls/hr Q12 IVPB Last administered on 12/02/18 08:42; Admin Dose 100 MLS/HR; Start 11/20/18 at 12:30 Hydromorphone HCl (Dilaudid) 1 mg Q4H PRN PO SEVERE PAIN LEVEL 7-10 Last administered on 12/02/18 13:12; Admin Dose 1 MG; Start 11/20/18 at 15:00 Vancomycin HCl 650 mg/Sodium Chloride 150 ml @ 100 mls/hr Q8H IVPB Last administered on 12/02/18 06:53; Admin Dose 100 MLS/HR; Start 11/20/18 at 23:00 Fentanyl (Duragesic 50 Mcg/Hr Patch) 1 patch Q72H TRANSDERM Last administered on 11/30/18at 10:39; Admin Dose 1 PATCH; Start 11/27/18 at 09:00 Midodrine (Proamatine) 30 mg Q8 GTB Last administered on 12/02/18 13:12; Admin Dose 30 MG; Start 11/29/18 at 22:00 Lansoprazole (Prevacid) 30 mg DAILY@06 GTB Last administered on 12/02/18 05:49; Admin Dose 30 MG; Start 11/30/18 at 06:00 BENIGNO BHARDWAJ NP Dec 02, 2018 15:20
[2018-12-02] MEDS: ONDANSETRON 4 MG INJ IV PRN (16:36)
[2018-12-03] VITALS (23 sets, daily range): BP systolic 83–129; BP diastolic 60–90; PULSE 63–103; RESP 14–21
[2018-12-03] MEDS: HYDROmorphONE 2 MG TAB PO PRN ×4 (03:50→23:59)
[2018-12-03] MEDS: ACETAMINOPHEN 650MG/20.3ML CUP GTB PRN ×5 (03:50→21:24)
[2018-12-03] MEDS: LORAZEPAM 1 MG TAB GTB PRN ×2 (04:59→22:14)
[2018-12-03] MEDS: ALBUTEROL HFA 8 GM INHALER INH PRN ×4 (05:02→20:19)
[2018-12-03] MEDS: LANSOPRAZOLE 30 MG CAP GTB SCH (06:29)
[2018-12-03] MEDS: MIDODRINE 5 MG TAB GTB SCH ×3 (06:30→22:14)
[2018-12-03] MEDS: MEROPENEM 1 GM/50ML(PMX) 50 ML IVPB SCH ×2 (08:45→20:30)
[2018-12-03] MEDS: BETAMETHASONE/CLOTRIMAZOLE 15 GM CR TOP SCH ×2 (08:49→20:44)
[2018-12-03] MEDS: FENTAnyl PATCH 50 MCG/HR TRANSDERM SCH (09:00)
[2018-12-03] MEDS: KETOCONAZOLE 2% SHAMPOO 120 ML BTL TOP SCH ×2 (09:38→20:44)
[2018-12-03] MEDS: VANCOMYCIN 650 MG in SOD CHLORIDE 0.9% 150 ML IVPB SCH ×3 (09:39→22:14)
[2018-12-03] MEDS ORDERED: SOD CHLORIDE 0.9% 500 ML IV ONE (11:30)
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
[2018-12-03] MEDS: ONDANSETRON 4 MG INJ IV PRN (18:38)
[2018-12-03] MEDS: AL HYDROX/MG HYDROX/SIMETH 30 ML CUP PO PRN (20:30)
[2018-12-04] VITALS (22 sets, daily range): BP systolic 92–120; BP diastolic 64–86; PULSE 68–91; RESP 14–26
[2018-12-04] MEDS: HYDROmorphONE 2 MG TAB PO PRN ×5 (04:36→22:35)
[2018-12-04] MEDS: ONDANSETRON 4 MG INJ IV PRN (04:36)
[2018-12-04] MEDS: LANSOPRAZOLE 30 MG CAP GTB SCH (05:07)
[2018-12-04] MEDS: ACETAMINOPHEN 650MG/20.3ML CUP GTB PRN ×4 (05:07→20:32)
[2018-12-04] MEDS: MIDODRINE 5 MG TAB GTB SCH ×3 (05:08→22:35)
[2018-12-04] MEDS: ALBUTEROL HFA 8 GM INHALER INH PRN ×5 (05:18→23:44)
[2018-12-04] MEDS: LORAZEPAM 1 MG TAB GTB PRN ×3 (06:04→19:05)
[2018-12-04] MEDS: KETOCONAZOLE 2% SHAMPOO 120 ML BTL TOP SCH ×2 (08:39→20:33)
[2018-12-04] MEDS: MEROPENEM 1 GM/50ML(PMX) 50 ML IVPB SCH ×2 (08:39→20:32)
[2018-12-04] MEDS: VANCOMYCIN 650 MG in SOD CHLORIDE 0.9% 150 ML IVPB SCH ×2 (08:39→16:08)
[2018-12-04] MEDS: BETAMETHASONE/CLOTRIMAZOLE 15 GM CR TOP SCH ×2 (08:39→20:33)
[2018-12-04] MEDS ORDERED: CASPOFUNGIN 70 MG in SOD CHLORIDE 0.9% 250 ML IVPB SCH (11:30)
[2018-12-04] MEDS: FENTAnyl PATCH 50 MCG/HR TRANSDERM SCH (12:27)
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
[2018-12-04] MEDS: ZYVOX 600 MG TAB PO SCH (20:32)
[2018-12-05] VITALS (23 sets, daily range): BP systolic 94–141; BP diastolic 67–98; PULSE 65–84; RESP 14–21
[2018-12-05] MEDS: ACETAMINOPHEN 650MG/20.3ML CUP GTB PRN ×4 (00:34→21:00)
[2018-12-05] MEDS: LORAZEPAM 1 MG TAB GTB PRN ×3 (01:43→14:45)
[2018-12-05] MEDS: IBUPROFEN 400 MG TAB GTB PRN ×3 (01:44→13:23)
[2018-12-05] MEDS: HYDROmorphONE 2 MG TAB PO PRN ×5 (02:47→21:01)
[2018-12-05] MEDS: LANSOPRAZOLE 30 MG CAP GTB SCH (05:53)
[2018-12-05] MEDS: MIDODRINE 5 MG TAB GTB SCH ×3 (05:53→21:01)
[2018-12-05] MEDS: MEROPENEM 1 GM/50ML(PMX) 50 ML IVPB SCH ×2 (08:18→20:59)
[2018-12-05] MEDS: ZYVOX 600 MG TAB PO SCH ×2 (08:19→21:00)
[2018-12-05] MEDS: KETOCONAZOLE 2% SHAMPOO 120 ML BTL TOP SCH ×2 (08:21→21:00)
[2018-12-05] MEDS: BETAMETHASONE/CLOTRIMAZOLE 15 GM CR TOP SCH ×2 (08:21→21:00)
[2018-12-05] MEDS: CASPOFUNGIN 50 MG in SOD CHLORIDE 0.9% 250 ML IVPB SCH (10:50)
[2018-12-05] MEDS: ALBUTEROL HFA 8 GM INHALER INH PRN ×3 (11:32→22:23)
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
[2018-12-06] VITALS (22 sets, daily range): BP systolic 93–136; BP diastolic 63–93; PULSE 51–105; RESP 14–23
[2018-12-06] MEDS: HYDROmorphONE 2 MG TAB PO PRN ×5 (02:03→23:09)
[2018-12-06] MEDS: IBUPROFEN 400 MG TAB GTB PRN ×2 (02:03→20:32)
[2018-12-06] MEDS: ALBUTEROL HFA 8 GM INHALER INH PRN ×4 (02:20→20:51)
[2018-12-06] MEDS: LORAZEPAM 1 MG TAB GTB PRN ×3 (02:59→20:15)
[2018-12-06] MEDS: LANSOPRAZOLE 30 MG CAP GTB SCH (06:03)
[2018-12-06] MEDS: MIDODRINE 5 MG TAB GTB SCH ×3 (06:03→23:09)
[2018-12-06] MEDS: ALTEPLASE (CATHFLO) 2 MG INJ CATHETER PRN (06:05)
[2018-12-06] MEDS: MEROPENEM 1 GM/50ML(PMX) 50 ML IVPB SCH ×2 (08:46→20:15)
[2018-12-06] MEDS: ZYVOX 600 MG TAB PO SCH ×2 (08:46→20:12)
[2018-12-06] MEDS: COLLAGENASE 5 GM (UD JAR) TOP SCH (08:47)
[2018-12-06] MEDS: BETAMETHASONE/CLOTRIMAZOLE 15 GM CR TOP SCH ×2 (08:47→21:00)
[2018-12-06] MEDS: KETOCONAZOLE 2% SHAMPOO 120 ML BTL TOP SCH ×2 (08:47→21:00)
[2018-12-06] MEDS: ACETAMINOPHEN 650MG/20.3ML CUP GTB PRN ×2 (09:55→15:37)
[2018-12-06] MEDS: FENTAnyl PATCH 50 MCG/HR TRANSDERM SCH (10:42)
[2018-12-06] MEDS: CASPOFUNGIN 50 MG in SOD CHLORIDE 0.9% 250 ML IVPB SCH (11:42)
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
[2018-12-06] MEDS: ONDANSETRON 4 MG INJ IV PRN (15:37)
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
[2018-12-06] MEDS: TOBRAMYCIN/0.25NS 300 MG/5 ML INHAL NEB SCH (20:00)
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
[2018-12-07] VITALS (24 sets, daily range): BP systolic 76–128; BP diastolic 59–87; PULSE 43–100; RESP 14–22
[2018-12-07] MEDS: HYDROmorphONE 2 MG TAB PO PRN ×5 (04:04→22:05)
[2018-12-07] MEDS: MIDODRINE 5 MG TAB GTB SCH ×5 (05:48→22:05)
[2018-12-07] MEDS: ACETAMINOPHEN 650MG/20.3ML CUP GTB PRN ×3 (05:48→22:05)
[2018-12-07] MEDS: LORAZEPAM 1 MG TAB GTB PRN ×2 (05:49→14:50)
[2018-12-07] MEDS: LANSOPRAZOLE 30 MG CAP GTB SCH (05:49)
[2018-12-07] MEDS: MEROPENEM 1 GM/50ML(PMX) 50 ML IVPB SCH ×2 (08:35→21:35)
[2018-12-07] MEDS: COLLAGENASE 5 GM (UD JAR) TOP SCH (08:36)
[2018-12-07] MEDS: ZYVOX 600 MG TAB PO SCH ×2 (08:36→21:35)
[2018-12-07] MEDS: KETOCONAZOLE 2% SHAMPOO 120 ML BTL TOP SCH ×2 (08:37→21:00)
[2018-12-07] MEDS: BETAMETHASONE/CLOTRIMAZOLE 15 GM CR TOP SCH ×2 (08:37→21:00)
[2018-12-07] MEDS: TOBRAMYCIN/0.25NS 300 MG/5 ML INHAL NEB SCH ×2 (09:00→20:00)
[2018-12-07] MEDS: ALBUTEROL HFA 8 GM INHALER INH PRN ×3 (09:00→19:42)
[2018-12-07] MEDS: CASPOFUNGIN 50 MG in SOD CHLORIDE 0.9% 250 ML IVPB SCH (11:20)
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
--- NOTE | 2018-12-07 15:49 | PN ---
Date/Time of Note Date/Time of Note DATE: 12/07/18 TIME: 15:49 Assessment/Plan VTE Prophylaxis Risk score (from [facility] [place]0 risk: 7 SCD applied (from [facility] [place]): No SCD contraindicated: other Pharmacological prophylaxis: other Pharm contraindication: other Lines/Catheters IV Catheter Type (from [facility]): PICC Line Central line still needed: Yes Urinary Cath still in place: Yes Reason Cath still needed: urinary retention Assessment/Plan Result Diagram: 12/07/18 0555 12/07/18 0555 Results 24hrs Laboratory Tests Test 12/07/18 05:55 White Blood Count 13.6 H Red Blood Count 3.56 L Hemoglobin 11.0 L Hematocrit 33.2 L Mean Corpuscular Volume 93.3 Mean Corpuscular Hemoglobin 30.9 Mean Corpuscular Hemoglobin Concent 33.1 Red Cell Distribution Width 14.1 Platelet Count 530 H Mean Platelet Volume 8.9 Immature Granulocytes % 0.300 Neutrophils % 77.8 H Lymphocytes % 11.8 L Monocytes % 5.7 Eosinophils % 3.6 Basophils % 0.8 Nucleated Red Blood Cells % 0.0 Immature Granulocytes # 0.040 H Neutrophils # 10.6 H Lymphocytes # 1.6 Monocytes # 0.8 Eosinophils # 0.5 Basophils # 0.1 Nucleated Red Blood Cells # 0.0 Sodium Level 142 Potassium Level 4.1 Chloride Level 100 Carbon Dioxide Level 28 Anion Gap 14 H Blood Urea Nitrogen 17 Creatinine 0.26 L Est Glomerular Filtrat Rate mL/min > 60 Glucose Level 96 Calcium Level 10.7 H Total Bilirubin 0.1 L Direct Bilirubin 0.00 Indirect Bilirubin 0.1 Aspartate Amino Transf (AST/SGOT) 63 H Alanine Aminotransferase (ALT/SGPT) 156 H Alkaline Phosphatase 217 H Total Protein 8.4 H Albumin 3.9 Globulin 4.50 H Albumin/Globulin Ratio 0.86 Subjective 24 Hr Interval Summary Free Text/Dictation nad afebrile seems comfortable; refuses wound care sometimes Trach. GT intsct; ;tolerates feeding no new issues reported last night Subjective hx not possible: pt non-verbal Constitutional: requiring O2 Exam/Review of Systems Vital Signs Vitals Vital Signs Date Temp Pulse Resp B/P (MAP) Pulse Ox O2 O2 Flow FiO2 Time Delivery Rate 12/07/18 98.4 100 16 128/87 100 Mechanical 15:46 (101) Ventilator 12/07/18 30 13:18 Intake and Output 12/06/18 12/06/18 12/07/18 1515:00 23:00 07:00 IntakeIntake Total 50 ml 1050 ml 50 ml OutputOutput Total 900 ml BalanceBalance 50 ml 150 ml 50 ml Exam Constitutional: alert, well developed, non-verbal, frail Psych: nl mood/affect Head: normocephalic Eyes: nl conjunctiva, EOMI, nl sclera, PERRL ENMT: nl external ears & nose Neck: non-tender, other (trach intact) Respiratory: clear to auscultation (bilatrally) Cardiovascular: nl pulses, other (s1s2) Gastrointestinal: soft, non-tender, other (gt inatct) Musculoskeletal: muscle weakness, range of motion Extremities: normal pulses Neurological: confused, other (alert/resonsive) Skin: other (decubs) Lymph: nontender Medications Medications Current Medications Docusate Sodium (Colace Liquid Cup) 100 mg BID PRN GTB CONSTIPATION Last administered on 12/01/18at 01:22; Admin Dose 100 MG; Start 10/07/18 at 03:30 Lorazepam (Ativan) 1 mg Q6H PRN GTB ANXIETY Last administered on 12/07/18 14:50; Admin Dose 1 MG; Start 10/09/18 at 20:30 Metoprolol Tartrate (Lopressor) 5 mg Q4H PRN IV HR>110 Hold SBP<100; Start 10/30/18 at 13:30 Albuterol (Ventolin Hfa) 4 puff Q2H PRN INH SHORTNESS OF BREATH Last administered on 12/07/18 09:00; Admin Dose 4 PUFF; Start 11/03/18 at 15:30 Ketoconazole (Nizoral Shampoo) 1 applic Q12 TOP Last administered on 12/04/18 08:39; Admin Dose 1 APPLIC; Start 11/08/18 at 12:00 Betamethasone/ Clotrimazole (Lotrisone Cr) 1 applic BID TOP Last administered on 12/04/18 08:39; Admin Dose 1 APPLIC; Start 11/08/18 at 21:00 Acetaminophen (Tylenol Liquid) 650 mg Q4H PRN GTB MILD PAIN(1-3)OR ELEVATED TEMP Last administered on 12/07/18 11:20; Admin Dose 650 MG; Start 11/08/18 at 15:30 Ondansetron HCl (Zofran Inj) 4 mg Q6H PRN IV NAUSEA AND/OR VOMITING Last administered on 12/06/18 15:37; Admin Dose 4 MG; Start 11/09/18 at 06:30 Al Hydrox/Mg Hydrox/Simethicone (Mag-Al Plus) 30 ml Q6H PRN PO GASTROINTESTINAL UPSET Last administered on 12/03/18 20:30; Admin Dose 30 ML; Start 11/09/18 at 09:00 Meropenem/Sodium Chloride 50 ml @ 100 mls/hr Q12 IVPB Last administered on 12/07/18 08:35; Admin Dose 100 MLS/HR; Start 11/20/18 at 12:30 Hydromorphone HCl (Dilaudid) 1 mg Q4H PRN PO SEVERE PAIN LEVEL 7-10 Last admin istered on 12/07/18 12:47; Admin Dose 1 MG; Start 11/20/18 at 15:00 Fentanyl (Duragesic 50 Mcg/Hr Patch) 1 patch Q72H TRANSDERM Last administered on 12/06/18 10:42; Admin Dose 1 PATCH; Start 11/27/18 at 09:00 Midodrine (Proamatine) 30 mg Q8 GTB Last administered on 12/07/18 05:48; Admin Dose 30 MG; Start 11/29/18 at 22:00 Lansoprazole (Prevacid) 30 mg DAILY@06 GTB Last administered on 12/07/18 05:49; Admin Dose 30 MG; Start 11/30/18 at 06:00 Caspofungin 50 mg/ Sodium Chloride 250 ml @ 250 mls/hr Q24H IVPB Last administered on 12/07/18 11:20; Admin Dose 250 MLS/HR; Start 12/05/18 at 11:00 Linezolid (Zyvox) 600 mg BID PO Last administered on 12/07/18 08:36; Admin Dose 600 MG; Start 12/04/18 at 21:00 Ibuprofen (Motrin) 400 mg Q6H PRN GTB MILD PAIN LEVEL 1-3 Last administered on 12/06/18 20:32; Admin Dose 400 MG; Start 12/05/18 at 02:00 Collagenase (Santyl) 1 applic DAILY TOP Last administered on 12/07/18at 08:36; Admin Dose 1 APPLIC; Start 12/06/18 at 09:00 Alteplase, Recombinant (Cathflo (Activase)) 2 mg MAY REPEAT X1 PRN CATHETER IF CATHETER REMAINS OCCULUDED Last administered on 12/06/18at 06:05; Admin Dose 2 MG; Start 12/05/18 at 23:30 Tobramycin Sulfate/Sodium Chloride (Ashvin Inhal) 300 mg BID RESP THERAPY NEB ; Start 12/06/18 at 20:00 RONALD BURGOS Dec 07, 2018 15:49
[2018-12-07] MEDS: ONDANSETRON 4 MG INJ IV PRN (18:40)
[2018-12-08] VITALS (23 sets, daily range): BP systolic 84–103; BP diastolic 54–78; PULSE 38–104; RESP 14–22
[2018-12-08] MEDS: ALBUTEROL HFA 8 GM INHALER INH PRN ×5 (01:20→20:10)
[2018-12-08] MEDS: LORAZEPAM 1 MG TAB GTB PRN (01:33)
[2018-12-08] MEDS: IBUPROFEN 400 MG TAB GTB PRN (01:34)
[2018-12-08] MEDS: MIDODRINE 5 MG TAB GTB SCH ×3 (05:10→22:49)
[2018-12-08] MEDS: ACETAMINOPHEN 650MG/20.3ML CUP GTB PRN ×3 (05:10→22:58)
[2018-12-08] MEDS: HYDROmorphONE 2 MG TAB PO PRN ×3 (05:10→17:58)
[2018-12-08] MEDS: LANSOPRAZOLE 30 MG CAP GTB SCH (05:11)
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
[2018-12-08] MEDS: KETOCONAZOLE 2% SHAMPOO 120 ML BTL TOP SCH ×2 (09:00→21:00)
[2018-12-08] MEDS: TOBRAMYCIN/0.25NS 300 MG/5 ML INHAL NEB SCH ×2 (09:00→16:31)
[2018-12-08] MEDS: ONDANSETRON 4 MG INJ IV PRN (09:10)
[2018-12-08] MEDS: ZYVOX 600 MG TAB PO SCH ×2 (09:11→22:49)
[2018-12-08] MEDS: QUETIAPINE 25 MG TAB GTB SCH ×2 (09:11→22:49)
[2018-12-08] MEDS: MEROPENEM 1 GM/50ML(PMX) 50 ML IVPB SCH (09:11)
[2018-12-08] MEDS: BETAMETHASONE/CLOTRIMAZOLE 15 GM CR TOP SCH ×2 (09:12→21:00)
[2018-12-08] MEDS: COLLAGENASE 5 GM (UD JAR) TOP SCH (09:12)
[2018-12-08] MEDS: CASPOFUNGIN 50 MG in SOD CHLORIDE 0.9% 250 ML IVPB SCH (10:10)
[2018-12-08] MEDS: FENTAnyl PATCH 50 MCG/HR TRANSDERM SCH (10:12)
[2018-12-08] MEDS ORDERED: HYDROmorphONE 2 MG TAB PO PRN (11:00)
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
[2018-12-08] MEDS ORDERED: GENTAMICIN IV PER PHARMACY XX SCH (16:30)
[2018-12-08] MEDS: ALTEPLASE (CATHFLO) 2 MG INJ CATHETER PRN (17:58)
[2018-12-08] MEDS ORDERED: GENTAMICIN IVPB SCH (18:00)
[2018-12-08] MEDS ORDERED: DEXTROSE 5% IVPB SCH (18:00)
[2018-12-09] VITALS (22 sets, daily range): BP systolic 86–109; BP diastolic 58–81; PULSE 63–90; RESP 14–28
[2018-12-09] MEDS: HYDROmorphONE 2 MG TAB PO PRN ×6 (00:01→21:46)
[2018-12-09] MEDS: ALBUTEROL HFA 8 GM INHALER INH PRN ×4 (03:31→19:37)
[2018-12-09] MEDS: ACETAMINOPHEN 650MG/20.3ML CUP GTB PRN ×3 (06:00→17:23)
[2018-12-09] MEDS: LANSOPRAZOLE 30 MG CAP GTB SCH (06:01)
[2018-12-09] MEDS: MIDODRINE 5 MG TAB GTB SCH ×3 (06:01→21:45)
[2018-12-09] MEDS: QUETIAPINE 25 MG TAB GTB SCH ×2 (08:47→21:43)
[2018-12-09] MEDS: COLLAGENASE 5 GM (UD JAR) TOP SCH (08:47)
[2018-12-09] MEDS: BETAMETHASONE/CLOTRIMAZOLE 15 GM CR TOP SCH ×2 (08:47→21:44)
[2018-12-09] MEDS: ZYVOX 600 MG TAB PO SCH ×2 (08:47→21:44)
[2018-12-09] MEDS: KETOCONAZOLE 2% SHAMPOO 120 ML BTL TOP SCH ×2 (08:48→21:00)
[2018-12-09] MEDS: TOBRAMYCIN/0.25NS 300 MG/5 ML INHAL NEB SCH (09:00)
--- NOTE | 2018-12-09 10:52 | CONS ---
Date/Time of Note Date/Time of Note DATE: 12/09/18 TIME: 10:52 Assessment/Plan Assessment/Plan Assessment/Plan VS reviewed - stable Result Diagram: 12/09/18 0558 12/09/18 0558 Results 24hrs Laboratory Tests Test 12/09/18 05:58 White Blood Count 9.8 Red Blood Count 2.95 L Hemoglobin 9.0 L Hematocrit 28.0 L Mean Corpuscular Volume 94.9 Mean Corpuscular Hemoglobin 30.5 Mean Corpuscular Hemoglobin Concent 32.1 Red Cell Distribution Width 14.6 H Platelet Count 472 H Mean Platelet Volume 9.0 Immature Granulocytes % 0.400 Neutrophils % 66.4 Lymphocytes % 23.8 Monocytes % 5.7 Eosinophils % 2.8 Basophils % 0.9 Nucleated Red Blood Cells % 0.0 Immature Granulocytes # 0.040 H Neutrophils # 6.5 Lymphocytes # 2.3 Monocytes # 0.6 Eosinophils # 0.3 Basophils # 0.1 Nucleated Red Blood Cells # 0.0 Sodium Level 142 Potassium Level 4.4 Chloride Level 103 Carbon Dioxide Level 28 Anion Gap 11 Blood Urea Nitrogen 25 H Creatinine 0.28 L Est Glomerular Filtrat Rate mL/min > 60 Glucose Level 87 Calcium Level 9.9 Random Gentamicin Level 2.8 Consultation Date/Type/Reason Admit Date/Time Sep 23, 2018 at 18:14 Initial Consult Date 09/25/18 Requesting Provider: MOISES CARLSON MD Exam/Review of Systems Vital Signs Vitals Vital Signs Date Temp Pulse Resp B/P (MAP) Pulse Ox O2 O2 Flow FiO2 Time Delivery Rate 12/09/18 86 19 99 30 09:10 12/09/18 98.8 109/81 Mechanical 08:00 (90) Ventilator Intake and Output 12/08/18 12/08/18 12/09/18 1515:00 23:00 07:00 IntakeIntake Total 50 ml 1550 ml 300 ml OutputOutput Total 400 ml 1900 ml BalanceBalance 50 ml 1150 ml -1600 ml Medications Medications Current Medications Metoprolol Tartrate (Lopressor) 5 mg Q4H PRN IV HR>110 Hold SBP<100; Start 10/30/18 at 13:30 Albuterol (Ventolin Hfa) 4 puff Q2H PRN INH SHORTNESS OF BREATH Last administered on 12/09/18at 09:04; Admin Dose 4 PUFF; Start 11/03/18 at 15:30 Ketoconazole (Nizoral Shampoo) 1 applic Q12 TOP Last administered on 12/04/18 08:39; Admin Dose 1 APPLIC; Start 11/08/18 at 12:00 Betamethasone/ Clotrimazole (Lotrisone Cr) 1 applic BID TOP Last administered on 12/09/18 08:47; Admin Dose 1 APPLIC; Start 11/08/18 at 21:00 Acetaminophen (Tylenol Liquid) 650 mg Q4H PRN GTB MILD PAIN(1-3)OR ELEVATED TEMP Last administered on 12/09/18 06:00; Admin Dose 650 MG; Start 11/08/18 at 15:30 Ondansetron HCl (Zofran Inj) 4 mg Q6H PRN IV NAUSEA AND/OR VOMITING Last administered on 12/08/18 09:10; Admin Dose 4 MG; Start 11/09/18 at 06:30 Al Hydrox/Mg Hydrox/Simethicone (Mag-Al Plus) 30 ml Q6H PRN PO GASTROINTESTINAL UPSET Last administered on 12/03/18 20:30; Admin Dose 30 ML; Start 11/09/18 at 09:00 Midodrine (Proamatine) 30 mg Q8 GTB Last administered on 12/09/18 06:01; Admin Dose 30 MG; Start 11/29/18 at 22:00 Lansoprazole (Prevacid) 30 mg DAILY@06 GTB Last administered on 12/09/18 06:01; Admin Dose 30 MG; Start 11/30/18 at 06:00 Caspofungin 50 mg/ Sodium Chloride 250 ml @ 250 mls/hr Q24H IVPB Last admi nistered on 12/08/18 10:10; Admin Dose 250 MLS/HR; Start 12/05/18 at 11:00 Linezolid (Zyvox) 600 mg BID PO Last administered on 12/09/18 08:47; Admin Dose 600 MG; Start 12/04/18 at 21:00 Collagenase (Santyl) 1 applic DAILY TOP Last administered on 12/09/18 08:47; Admin Dose 1 APPLIC; Start 12/06/18 at 09:00 Alteplase, Recombinant (Cathflo (Activase)) 2 mg MAY REPEAT X1 PRN CATHETER IF CATHETER REMAINS OCCULUDED Last administered on 12/08/18at 17:58; Admin Dose 2 MG; Start 12/05/18 at 23:30 Tobramycin Sulfate/Sodium Chloride (Ashvin Inhal) 300 mg BID RESP THERAPY NEB ; Start 12/06/18 at 20:00 Quetiapine Fumarate (Seroquel) 25 mg BID GTB Last administered on 12/09/18at 08:47; Admin Dose 25 MG; Start 12/08/18 at 09:00 Fentanyl (Duragesic 50 Mcg/Hr Patch) 1 patch Q48H TRANSDERM Last administered on 12/08/18at 10:12; Admin Dose 1 PATCH; Start 12/08/18 at 10:00 Hydromorphone HCl (Dilaudid) 2 mg Q4H PRN PO SEVERE PAIN LEVEL 7-10 Last administered on 12/09/18at 08:47; Admin Dose 2 MG; Start 12/08/18 at 09:00 Miscellaneous Information (*Order Clarification Bulletin) MEDICATION REQUIRES CLARIFICATI... Q8H XX ; Start 12/08/18 at 16:00; Stop 12/10/18 at 15:00 Gentamicin Sulfate (Gentamicin Iv Per Pharmacy) GENTAMICIN PER PHARMACY NOTE XX ; Start 12/08/18 at 16:30 Miscellaneous Information (*Order Clarification Bulletin) MEDICATION REQUIRES CLARIFICATI... Q8H XX ; Start 12/08/18 at 21:30; Stop 12/10/18 at 21:29 Gentamicin Sulfate 450 mg/ Dextrose 111.25 ml @ 111.25 mls/hr Q24H IVPB ; Start 12/09/18 at 11:00 Gentamicin Sulfate 450 mg/ Dextrose 111.25 ml @ 111.25 mls/hr Q24H IVPB ; Start 12/09/18 at 18:00 BANDAR BELLO MD Dec 09, 2018 10:52
[2018-12-09] MEDS ORDERED: DEXTROSE 5% IVPB SCH ×2 (11:00→18:00)
[2018-12-09] MEDS ORDERED: GENTAMICIN IVPB SCH ×2 (11:00→18:00)
[2018-12-09] MEDS: CASPOFUNGIN 50 MG in SOD CHLORIDE 0.9% 250 ML IVPB SCH (11:11)
[2018-12-09] MEDS: COLISTIMETHATE 75 MG in SOD CHLORIDE 0.9% 100 ML IVPB SCH ×2 (13:28→22:00)
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
[2018-12-10] VITALS (21 sets, daily range): BP systolic 110–148; BP diastolic 79–101; PULSE 55–85; RESP 14–25
[2018-12-10] MEDS: ACETAMINOPHEN 650MG/20.3ML CUP GTB PRN ×4 (00:06→20:06)
[2018-12-10] MEDS: ALBUTEROL HFA 8 GM INHALER INH PRN ×6 (01:28→19:49)
[2018-12-10] MEDS: HYDROmorphONE 2 MG TAB PO PRN ×6 (01:31→21:46)
[2018-12-10] MEDS: MIDODRINE 5 MG TAB GTB SCH ×3 (05:37→21:42)
[2018-12-10] MEDS: LANSOPRAZOLE 30 MG CAP GTB SCH (05:37)
[2018-12-10] MEDS: ZYVOX 600 MG TAB PO SCH ×2 (08:41→20:06)
[2018-12-10] MEDS: QUETIAPINE 25 MG TAB GTB SCH ×2 (08:41→20:06)
[2018-12-10] MEDS: COLLAGENASE 5 GM (UD JAR) TOP SCH ×3 (08:41→15:48)
[2018-12-10] MEDS: BETAMETHASONE/CLOTRIMAZOLE 15 GM CR TOP SCH ×2 (08:42→20:07)
[2018-12-10] MEDS: COLISTIMETHATE 75 MG in SOD CHLORIDE 0.9% 100 ML IVPB SCH ×2 (08:42→20:07)
[2018-12-10] MEDS: KETOCONAZOLE 2% SHAMPOO 120 ML BTL TOP SCH ×2 (08:51→20:07)
[2018-12-10] MEDS: FENTAnyl PATCH 50 MCG/HR TRANSDERM SCH (10:36)
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
[2018-12-10] MEDS: ONDANSETRON 4 MG INJ IV PRN (21:46)
[2018-12-11] VITALS (22 sets, daily range): BP systolic 102–131; BP diastolic 69–92; PULSE 63–89; RESP 14–20
[2018-12-11] MEDS: ACETAMINOPHEN 650MG/20.3ML CUP GTB PRN ×5 (02:05→20:09)
[2018-12-11] MEDS: HYDROmorphONE 2 MG TAB PO PRN ×6 (02:05→22:03)
[2018-12-11] MEDS: ALBUTEROL HFA 8 GM INHALER INH PRN ×4 (03:25→19:25)
[2018-12-11] MEDS: LANSOPRAZOLE 30 MG CAP GTB SCH (06:06)
[2018-12-11] MEDS: MIDODRINE 5 MG TAB GTB SCH ×3 (06:06→22:00)
[2018-12-11] MEDS: ZYVOX 600 MG TAB PO SCH ×2 (08:55→20:08)
[2018-12-11] MEDS: COLISTIMETHATE 75 MG in SOD CHLORIDE 0.9% 100 ML IVPB SCH ×2 (08:55→20:08)
[2018-12-11] MEDS: QUETIAPINE 25 MG TAB GTB SCH ×2 (08:55→20:08)
[2018-12-11] MEDS: KETOCONAZOLE 2% SHAMPOO 120 ML BTL TOP SCH ×2 (09:00→20:15)
[2018-12-11] MEDS: BETAMETHASONE/CLOTRIMAZOLE 15 GM CR TOP SCH ×2 (09:00→20:15)
[2018-12-11] MEDS: ONDANSETRON 4 MG INJ IV PRN ×3 (10:11→23:20)
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
[2018-12-11] MEDS: AL HYDROX/MG HYDROX/SIMETH 30 ML CUP PO PRN ×2 (14:12→22:03)
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
[2018-12-11] MEDS ORDERED: MIDODRINE 2.5 MG TAB GTB SCH (22:11)
[2018-12-11] MEDS: MIDODRINE 2.5 MG TAB GTB SCH (22:35)
[2018-12-12] VITALS (23 sets, daily range): BP systolic 86–128; BP diastolic 59–88; PULSE 60–90; RESP 14–21
[2018-12-12] MEDS: ALBUTEROL HFA 8 GM INHALER INH PRN ×4 (00:05→19:40)
[2018-12-12] MEDS: ACETAMINOPHEN 650MG/20.3ML CUP GTB PRN ×5 (00:33→18:32)
[2018-12-12] MEDS: HYDROmorphONE 2 MG TAB PO PRN ×5 (01:59→20:30)
[2018-12-12] MEDS: LANSOPRAZOLE 30 MG CAP GTB SCH (04:35)
[2018-12-12] MEDS: MIDODRINE 2.5 MG TAB GTB SCH (04:36)
[2018-12-12] MEDS: COLLAGENASE 5 GM (UD JAR) TOP SCH (08:40)
[2018-12-12] MEDS: QUETIAPINE 25 MG TAB GTB SCH ×2 (08:41→21:39)
[2018-12-12] MEDS: ZYVOX 600 MG TAB PO SCH ×2 (08:41→21:39)
[2018-12-12] MEDS: BETAMETHASONE/CLOTRIMAZOLE 15 GM CR TOP SCH ×2 (08:42→21:00)
[2018-12-12] MEDS: KETOCONAZOLE 2% SHAMPOO 120 ML BTL TOP SCH ×2 (08:42→21:00)
[2018-12-12] MEDS: COLISTIMETHATE 75 MG in SOD CHLORIDE 0.9% 100 ML IVPB SCH ×2 (10:05→21:39)
[2018-12-12] MEDS: FENTAnyl PATCH 50 MCG/HR TRANSDERM SCH (11:13)
[2018-12-12] MEDS: AL HYDROX/MG HYDROX/SIMETH 30 ML CUP PO PRN (14:02)
[2018-12-12] MEDS: MIDODRINE HCL 10 MG TABLET PO SCH ×2 (14:03→23:57)
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
[2018-12-12] MEDS: ONDANSETRON 4 MG INJ IV PRN (18:32)
[2018-12-13] VITALS (24 sets, daily range): BP systolic 85–168; BP diastolic 55–94; PULSE 47–89; RESP 14–21
[2018-12-13] MEDS: HYDROmorphONE 2 MG TAB PO PRN ×6 (00:39→20:49)
[2018-12-13] MEDS: ACETAMINOPHEN 650MG/20.3ML CUP GTB PRN ×5 (00:40→20:49)
[2018-12-13] MEDS: ALBUTEROL HFA 8 GM INHALER INH PRN ×5 (00:51→23:22)
[2018-12-13] MEDS: MIDODRINE HCL 10 MG TABLET PO SCH ×3 (06:38→22:26)
[2018-12-13] MEDS: LANSOPRAZOLE 30 MG CAP GTB SCH (06:38)
[2018-12-13] MEDS: ZYVOX 600 MG TAB PO SCH ×2 (08:36→20:49)
[2018-12-13] MEDS: QUETIAPINE 25 MG TAB GTB SCH ×2 (08:37→20:49)
[2018-12-13] MEDS: COLISTIMETHATE 75 MG in SOD CHLORIDE 0.9% 100 ML IVPB SCH (08:37)
[2018-12-13] MEDS: COLLAGENASE 5 GM (UD JAR) TOP SCH (08:38)
[2018-12-13] MEDS: KETOCONAZOLE 2% SHAMPOO 120 ML BTL TOP SCH ×2 (08:38→22:16)
[2018-12-13] MEDS: BETAMETHASONE/CLOTRIMAZOLE 15 GM CR TOP SCH ×2 (08:38→22:16)
[2018-12-13] MEDS ORDERED: GENTAMICIN IV PER PHARMACY XX SCH (10:00)
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
[2018-12-13] MEDS: FLUCONAZOLE 100 MG TAB PO SCH (11:24)
[2018-12-13] MEDS: CEFEPIME 1GM/50 ML (PMX) 50 ML IVPB SCH ×2 (11:24→22:26)
[2018-12-13] MEDS ORDERED: GENTAMICIN 350 MG in DEXTROSE 5% 100 ML IVPB SCH (12:00)
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
[2018-12-13] MEDS: metroNIDAZOLE 500 MG TAB NGT SCH ×2 (14:59→20:49)
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
[2018-12-14] VITALS (23 sets, daily range): BP systolic 94–131; BP diastolic 68–83; PULSE 59–84; RESP 12–19
[2018-12-14] MEDS: HYDROmorphONE 2 MG TAB PO PRN ×4 (01:09→13:40)
[2018-12-14] MEDS: ACETAMINOPHEN 650MG/20.3ML CUP GTB PRN ×4 (01:09→22:13)
[2018-12-14] MEDS: MIDODRINE HCL 10 MG TABLET PO SCH ×3 (05:23→22:13)
[2018-12-14] MEDS: LANSOPRAZOLE 30 MG CAP GTB SCH (05:23)
[2018-12-14] MEDS: metroNIDAZOLE 500 MG TAB NGT SCH ×3 (05:23→22:13)
[2018-12-14] MEDS: COLLAGENASE 5 GM (UD JAR) TOP SCH (09:00)
[2018-12-14] MEDS: ALBUTEROL HFA 8 GM INHALER INH PRN ×2 (09:15→23:02)
[2018-12-14] MEDS: KETOCONAZOLE 2% SHAMPOO 120 ML BTL TOP SCH ×2 (09:45→21:00)
[2018-12-14] MEDS: FLUCONAZOLE 100 MG TAB PO SCH (09:45)
[2018-12-14] MEDS: QUETIAPINE 25 MG TAB GTB SCH ×2 (09:45→22:14)
[2018-12-14] MEDS: ZYVOX 600 MG TAB PO SCH ×2 (09:45→22:14)
[2018-12-14] MEDS: BETAMETHASONE/CLOTRIMAZOLE 15 GM CR TOP SCH ×2 (09:45→22:14)
[2018-12-14] MEDS: CEFEPIME 1GM/50 ML (PMX) 50 ML IVPB SCH ×2 (09:49→22:13)
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
[2018-12-14] MEDS: ONDANSETRON 4 MG INJ IV PRN (13:39)
[2018-12-14] MEDS: FENTAnyl PATCH 50 MCG/HR TRANSDERM SCH (13:48)
[2018-12-14] MEDS: HYDROmorphONE 1 MG/ML SYG IV PRN ×3 (15:09→23:20)
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
[2018-12-15] VITALS (21 sets, daily range): BP systolic 93–124; BP diastolic 61–91; PULSE 71–103; RESP 14–18
[2018-12-15] MEDS: HYDROmorphONE 1 MG/ML SYG IV PRN ×5 (03:32→20:26)
[2018-12-15] MEDS: ALBUTEROL HFA 8 GM INHALER INH PRN ×3 (05:21→17:29)
[2018-12-15] MEDS: MIDODRINE HCL 10 MG TABLET PO SCH ×3 (05:52→22:10)
[2018-12-15] MEDS: metroNIDAZOLE 500 MG TAB NGT SCH ×3 (05:52→22:10)
[2018-12-15] MEDS: LANSOPRAZOLE 30 MG CAP GTB SCH (05:52)
[2018-12-15] MEDS: COLLAGENASE 5 GM (UD JAR) TOP SCH (07:52)
[2018-12-15] MEDS: BETAMETHASONE/CLOTRIMAZOLE 15 GM CR TOP SCH ×2 (07:52→08:15)
[2018-12-15] MEDS: KETOCONAZOLE 2% SHAMPOO 120 ML BTL TOP SCH ×2 (07:52→08:15)
[2018-12-15] MEDS: ONDANSETRON 4 MG INJ IV PRN (08:02)
[2018-12-15] MEDS: QUETIAPINE 25 MG TAB GTB SCH ×2 (08:02→20:26)
[2018-12-15] MEDS: CEFEPIME 1GM/50 ML (PMX) 50 ML IVPB SCH ×2 (08:02→20:34)
[2018-12-15] MEDS: ZYVOX 600 MG TAB PO SCH ×2 (08:02→20:26)
[2018-12-15] MEDS: FLUCONAZOLE 100 MG TAB PO SCH (08:02)
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
[2018-12-15] MEDS: GENTAMICIN 350 MG in DEXTROSE 5% 100 ML IVPB SCH (14:10)
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
[2018-12-16] VITALS (24 sets, daily range): BP systolic 93–130; BP diastolic 66–88; PULSE 56–93; RESP 14–19
[2018-12-16] MEDS: HYDROmorphONE 1 MG/ML SYG IV PRN ×3 (01:04→09:15)
[2018-12-16] MEDS: ALBUTEROL HFA 8 GM INHALER INH PRN ×4 (02:40→15:11)
[2018-12-16] MEDS: LANSOPRAZOLE 30 MG CAP GTB SCH (05:20)
[2018-12-16] MEDS: metroNIDAZOLE 500 MG TAB NGT SCH ×3 (05:20→21:27)
[2018-12-16] MEDS: MIDODRINE HCL 10 MG TABLET PO SCH ×3 (05:20→21:27)
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
[2018-12-16] MEDS: KETOCONAZOLE 2% SHAMPOO 120 ML BTL TOP SCH ×2 (09:00→20:59)
[2018-12-16] MEDS: BETAMETHASONE/CLOTRIMAZOLE 15 GM CR TOP SCH ×2 (09:00→20:58)
[2018-12-16] MEDS: COLLAGENASE 5 GM (UD JAR) TOP SCH (09:00)
[2018-12-16] MEDS: FLUCONAZOLE 100 MG TAB PO SCH (09:14)
[2018-12-16] MEDS: CEFEPIME 1GM/50 ML (PMX) 50 ML IVPB SCH ×2 (09:14→21:00)
[2018-12-16] MEDS: ZYVOX 600 MG TAB PO SCH ×2 (09:14→20:57)
[2018-12-16] MEDS: QUETIAPINE 25 MG TAB GTB SCH ×2 (09:14→21:27)
[2018-12-16] MEDS: FENTAnyl PATCH 50 MCG/HR TRANSDERM SCH (11:34)
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
[2018-12-16] MEDS: HYDROmorphONE 2 MG/ML SYG IV PRN ×3 (13:30→21:35)
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
[2018-12-17] VITALS (22 sets, daily range): BP systolic 90–113; BP diastolic 57–82; PULSE 63–88; RESP 14–19
[2018-12-17] MEDS: ALBUTEROL HFA 8 GM INHALER INH PRN ×6 (00:22→23:53)
[2018-12-17] MEDS: HYDROmorphONE 2 MG/ML SYG IV PRN ×5 (02:06→21:16)
[2018-12-17] MEDS: LANSOPRAZOLE 30 MG CAP GTB SCH (06:12)
[2018-12-17] MEDS: MIDODRINE HCL 10 MG TABLET PO SCH ×3 (06:13→21:13)
[2018-12-17] MEDS: metroNIDAZOLE 500 MG TAB NGT SCH ×3 (06:13→21:13)
[2018-12-17] MEDS: COLLAGENASE 5 GM (UD JAR) TOP SCH (09:00)
[2018-12-17] MEDS: KETOCONAZOLE 2% SHAMPOO 120 ML BTL TOP SCH ×2 (09:00→21:00)
[2018-12-17] MEDS: BETAMETHASONE/CLOTRIMAZOLE 15 GM CR TOP SCH ×2 (09:00→21:00)
[2018-12-17] MEDS: CEFEPIME 1GM/50 ML (PMX) 50 ML IVPB SCH ×2 (09:14→21:14)
[2018-12-17] MEDS: FLUCONAZOLE 100 MG TAB PO SCH (09:14)
[2018-12-17] MEDS: QUETIAPINE 25 MG TAB GTB SCH ×2 (09:14→21:13)
[2018-12-17] MEDS: ZYVOX 600 MG TAB PO SCH ×2 (09:14→21:13)
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
[2018-12-17] MEDS: GENTAMICIN 350 MG in DEXTROSE 5% 100 ML IVPB SCH (13:23)
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
[2018-12-18] VITALS (24 sets, daily range): BP systolic 102–117; BP diastolic 71–83; PULSE 62–96; RESP 14–20
[2018-12-18] MEDS: HYDROmorphONE 2 MG/ML SYG IV PRN ×6 (01:08→21:21)
[2018-12-18] MEDS: LANSOPRAZOLE 30 MG CAP GTB SCH (05:29)
[2018-12-18] MEDS: metroNIDAZOLE 500 MG TAB NGT SCH ×3 (05:30→21:04)
[2018-12-18] MEDS: MIDODRINE HCL 10 MG TABLET PO SCH ×3 (05:30→21:04)
[2018-12-18] MEDS: ACETAMINOPHEN 650MG/20.3ML CUP GTB PRN (05:40)
[2018-12-18] MEDS: BETAMETHASONE/CLOTRIMAZOLE 15 GM CR TOP SCH ×2 (09:00→21:00)
[2018-12-18] MEDS: KETOCONAZOLE 2% SHAMPOO 120 ML BTL TOP SCH ×2 (09:00→21:00)
[2018-12-18] MEDS: COLLAGENASE 5 GM (UD JAR) TOP SCH (09:00)
[2018-12-18] MEDS: CEFEPIME 1GM/50 ML (PMX) 50 ML IVPB SCH ×2 (09:17→21:04)
[2018-12-18] MEDS: FLUCONAZOLE 100 MG TAB PO SCH (09:17)
[2018-12-18] MEDS: QUETIAPINE 25 MG TAB GTB SCH ×2 (09:17→21:04)
[2018-12-18] MEDS: ZYVOX 600 MG TAB PO SCH ×2 (09:18→21:04)
[2018-12-18] MEDS: FENTAnyl PATCH 50 MCG/HR TRANSDERM SCH (10:54)
[2018-12-18] MEDS: ALBUTEROL HFA 8 GM INHALER INH PRN ×3 (11:16→19:27)
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
[2018-12-19] VITALS (23 sets, daily range): BP systolic 100–118; BP diastolic 68–87; PULSE 68–96; RESP 14–20
[2018-12-19] MEDS: HYDROmorphONE 2 MG/ML SYG IV PRN ×6 (01:15→21:53)
[2018-12-19] MEDS: MIDODRINE HCL 10 MG TABLET PO SCH ×3 (05:06→21:54)
[2018-12-19] MEDS: LANSOPRAZOLE 30 MG CAP GTB SCH (05:06)
[2018-12-19] MEDS: metroNIDAZOLE 500 MG TAB NGT SCH ×3 (05:06→21:53)
[2018-12-19] MEDS: ALBUTEROL HFA 8 GM INHALER INH PRN ×4 (05:41→19:38)
[2018-12-19] MEDS: CEFEPIME 1GM/50 ML (PMX) 50 ML IVPB SCH ×2 (09:25→20:48)
[2018-12-19] MEDS: QUETIAPINE 25 MG TAB GTB SCH ×2 (09:25→20:49)
[2018-12-19] MEDS: FLUCONAZOLE 100 MG TAB PO SCH (09:26)
[2018-12-19] MEDS: ZYVOX 600 MG TAB PO SCH ×2 (09:26→20:49)
[2018-12-19] MEDS: COLLAGENASE 5 GM (UD JAR) TOP SCH (09:26)
[2018-12-19] MEDS: BETAMETHASONE/CLOTRIMAZOLE 15 GM CR TOP SCH ×2 (09:26→20:50)
[2018-12-19] MEDS: KETOCONAZOLE 2% SHAMPOO 120 ML BTL TOP SCH ×2 (09:26→20:50)
[2018-12-19] MEDS: ACETAMINOPHEN 650MG/20.3ML CUP GTB PRN ×3 (09:34→17:39)
[2018-12-19] MEDS: GENTAMICIN 350 MG in DEXTROSE 5% 100 ML IVPB SCH (13:03)
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
[2018-12-19] MEDS: HYDROmorphONE 2 MG TAB PO PRN ×2 (14:38→20:49)
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
[2018-12-19] MEDS ORDERED: ZYVOX 600 MG TAB PO SCH (21:00)
[2018-12-20] VITALS (23 sets, daily range): BP systolic 91–155; BP diastolic 62–100; PULSE 56–103; RESP 14–19
[2018-12-20] MEDS: HYDROmorphONE 2 MG/ML SYG IV PRN ×6 (02:16→21:47)
[2018-12-20] MEDS: ALBUTEROL HFA 8 GM INHALER INH PRN ×2 (05:39→21:24)
[2018-12-20] MEDS: ONDANSETRON 4 MG INJ IV PRN ×2 (05:55→13:02)
[2018-12-20] MEDS: metroNIDAZOLE 500 MG TAB NGT SCH ×3 (05:55→21:02)
[2018-12-20] MEDS: MIDODRINE HCL 10 MG TABLET PO SCH ×3 (05:55→21:03)
[2018-12-20] MEDS: LANSOPRAZOLE 30 MG CAP GTB SCH (05:55)
[2018-12-20] MEDS: COLLAGENASE 5 GM (UD JAR) TOP SCH (09:00)
[2018-12-20] MEDS: KETOCONAZOLE 2% SHAMPOO 120 ML BTL TOP SCH ×2 (09:06→21:00)
[2018-12-20] MEDS: BETAMETHASONE/CLOTRIMAZOLE 15 GM CR TOP SCH ×2 (09:06→21:00)
[2018-12-20] MEDS: QUETIAPINE 25 MG TAB GTB SCH ×2 (09:07→21:02)
[2018-12-20] MEDS: CEFEPIME 1GM/50 ML (PMX) 50 ML IVPB SCH ×2 (09:07→21:03)
[2018-12-20] MEDS: FLUCONAZOLE 100 MG TAB PO SCH (09:07)
[2018-12-20] MEDS: ZYVOX 600 MG TAB PO SCH ×2 (09:07→21:02)
[2018-12-20] MEDS: FENTAnyl PATCH 50 MCG/HR TRANSDERM SCH ×2 (10:00→14:34)
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
[2018-12-20] MEDS: HYDROmorphONE 2 MG TAB PO PRN ×2 (13:03→21:02)
--- NOTE | 2018-12-20 15:17 | CONS ---
Date/Time of Note Date/Time of Note DATE: 12/20/18 TIME: 15:17 Assessment/Plan Assessment/Plan Assessment/Plan Vs reviewed - stable Result Diagram: 12/20/18 0615 12/20/18 0615 Results 24hrs Laboratory Tests Test 12/20/18 06:15 White Blood Count 10.0 Red Blood Count 3.23 L Hemoglobin 9.8 L Hematocrit 29.2 L Mean Corpuscular Volume 90.4 Mean Corpuscular Hemoglobin 30.3 Mean Corpuscular Hemoglobin Concent 33.6 Red Cell Distribution Width 13.8 Platelet Count 395 # Mean Platelet Volume 8.8 Immature Granulocytes % 0.200 Neutrophils % 66.7 Lymphocytes % 22.9 Monocytes % 6.2 Eosinophils % 2.7 Basophils % 1.3 Nucleated Red Blood Cells % 0.0 Immature Granulocytes # 0.020 Neutrophils # 6.7 Lymphocytes # 2.3 Monocytes # 0.6 Eosinophils # 0.3 Basophils # 0.1 Nucleated Red Blood Cells # 0.0 Sodium Level 132 L Potassium Level 4.3 Chloride Level 93 L Carbon Dioxide Level 27 Anion Gap 12 Blood Urea Nitrogen 16 Creatinine 0.40 L Est Glomerular Filtrat Rate mL/min > 60 Glucose Level 98 Calcium Level 11.5 H Consultation Date/Type/Reason Admit Date/Time Sep 23, 2018 at 18:14 Initial Consult Date 09/25/18 Requesting Provider: MOISES CARLSON MD Exam/Review of Systems Vital Signs Vitals Vital Signs Date Temp Pulse Resp B/P (MAP) Pulse Ox O2 O2 Flow FiO2 Time Delivery Rate 12/20/18 80 13:25 12/20/18 98.3 18 107/75 99 11:46 (86) 12/20/18 30 08:00 Intake and Output 12/19/18 12/19/18 12/20/18 1414:59 22:59 06:59 IntakeIntake Total 158.78 ml 550 ml 300 ml OutputOutput Total 600 ml 900 ml BalanceBalance 158.78 ml -50 ml -600 ml Medications Medications Current Medications Metoprolol Tartrate (Lopressor) 5 mg Q4H PRN IV HR>110 Hold SBP<100; Start 10/30/18 at 13:30 Albuterol (Ventolin Hfa) 4 puff Q2H PRN INH SHORTNESS OF BREATH Last administered on 12/20/18at 05:39; Admin Dose 4 PUFF; Start 11/03/18 at 15:30 Ketoconazole (Nizoral Shampoo) 1 applic Q12 TOP Last administered on 12/20/18 09:06; Admin Dose 1 APPLIC; Start 11/08/18 at 12:00 Betamethasone/ Clotrimazole (Lotrisone Cr) 1 applic BID TOP Last administered on 12/20/18 09:06; Admin Dose 1 APPLIC; Start 11/08/18 at 21:00 Acetaminophen (Tylenol Liquid) 650 mg Q4H PRN GTB MILD PAIN(1-3)OR ELEVATED TEMP Last administered on 12/19/18 17:39; Admin Dose 650 MG; Start 11/08/18 at 15:30 Ondansetron HCl (Zofran Inj) 4 mg Q6H PRN IV NAUSEA AND/OR VOMITING Last administered on 12/20/18 13:02; Admin Dose 4 MG; Start 11/09/18 at 06:30 Al Hydrox/Mg Hydrox/Simethicone (Mag-Al Plus) 30 ml Q6H PRN PO GASTROINTESTINAL UPSET Last administered on 12/12/18 14:02; Admin Dose 30 ML; Start 11/09/18 at 09:00 Lansoprazole (Prevacid) 30 mg DAILY@06 GTB Last administered on 12/20/18 05:55; Admin Dose 30 MG; Start 11/30/18 at 06:00 Linezolid (Zyvox) 600 mg BID PO Last administered on 12/20/18 09:07; Admin Dose 600 MG; Start 12/04/18 at 21:00 Collagenase (Santyl) 1 applic DAILY TOP Last administered on 12/19/18 09:26; Admin Dose 1 APPLIC; Start 12/06/18 at 09:00 Alteplase, Recombinant (Cathflo (Activase)) 2 mg MAY REPEAT X1 PRN CATHETER IF CATHETER REMAINS OCCULUDED Last administered on 12/08/18 17:58; Admin Dose 2 MG; Start 12/05/18 at 23:30 Fentanyl (Duragesic 50 Mcg/Hr Patch) 1 patch Q48H TRANSDERM Last administered on 12/20/18 14:34; Admin Dose 1 PATCH; Start 12/08/18 at 10:00 Hydromorphone HCl (Dilaudid) 2 mg Q4H PRN PO SEVERE PAIN LEVEL 7-10 Last administered on 12/20/18 13:03; Admin Dose 2 MG; Start 12/08/18 at 09:00 Midodrine (Midodrine HCl) 30 mg Q8 PO Last administered on 12/20/18 14:16; Admin Dose 30 MG; Start 12/12/18 at 14:00 Quetiapine Fumarate (Seroquel) 50 mg BID GTB Last administered on 12/20/18 09:07; Admin Dose 50 MG; Start 12/12/18 at 21:00 Fluconazole (Diflucan) 100 mg DAILY PO Last administered on 12/20/18 09:07; Admin Dose 100 MG; Start 12/13/18 at 10:00 Gentamicin Sulfate (Gentamicin Iv Per Pharmacy) GENTAMICIN PER PHARMACY NOTE XX ; Start 12/13/18 at 10:00 Cefepime HCl 50 ml @ 100 mls/hr Q12 IVPB Last administered on 12/20/18 09:07; Admin Dose 100 MLS/HR; Start 12/13/18 at 10:00 Metronidazole (Flagyl) 500 mg Q8 NGT Last administered on 12/20/18 14:16; Admin Dose 500 MG; Start 12/13/18 at 14:00 Gentamicin Sulfate 350 mg/ Dextrose 108.75 ml @ 103.75 mls/hr Q48H IVPB Last administered on 12/19/18 13:03; Admin Dose 103.75 MLS/HR; Start 12/15/18 at 13:00 Hydromorphone HCl (Dilaudid) 1.5 mg Q4H PRN IV SEVERE PAIN LEVEL 7-10 Last administered on 12/20/18 14:16; Admin Dose 1.5 MG; Start 12/16/18 at 11:00 Miscellaneous Information (*Rx Drug Level Order Reminder*) GENT TROUGH @ 1,200 ON... ONCE ONCE XX ; Start 12/21/18 at 12:00; Stop 12/21/18 at 12:01 BANDAR BELLO MD Dec 20, 2018 15:17
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
[2018-12-20] MEDS: ACETAMINOPHEN 650MG/20.3ML CUP GTB PRN ×2 (17:54→23:11)
[2018-12-20] MEDS: ENOXAPARIN 40 MG/0.4 ML SYG SC SCH (18:09)
[2018-12-21] VITALS (25 sets, daily range): BP systolic 99–113; BP diastolic 73–86; PULSE 69–95; RESP 14–20
[2018-12-21] MEDS: HYDROmorphONE 2 MG/ML SYG IV PRN ×6 (01:35→21:31)
[2018-12-21] MEDS: LANSOPRAZOLE 30 MG CAP GTB SCH (06:39)
[2018-12-21] MEDS: metroNIDAZOLE 500 MG TAB NGT SCH ×3 (06:39→21:30)
[2018-12-21] MEDS: MIDODRINE HCL 10 MG TABLET PO SCH ×2 (06:39→13:26)
[2018-12-21] MEDS: HYDROmorphONE 2 MG TAB PO PRN (07:04)
[2018-12-21] MEDS: FLUCONAZOLE 100 MG TAB PO SCH (08:37)
[2018-12-21] MEDS: QUETIAPINE 25 MG TAB GTB SCH ×2 (08:37→21:30)
[2018-12-21] MEDS: CEFEPIME 1GM/50 ML (PMX) 50 ML IVPB SCH ×2 (08:37→21:30)
[2018-12-21] MEDS: ZYVOX 600 MG TAB PO SCH ×2 (08:37→21:30)
[2018-12-21] MEDS: ENOXAPARIN 40 MG/0.4 ML SYG SC SCH (08:48)
[2018-12-21] MEDS: COLLAGENASE 5 GM (UD JAR) TOP SCH (08:49)
[2018-12-21] MEDS: BETAMETHASONE/CLOTRIMAZOLE 15 GM CR TOP SCH ×2 (08:49→21:00)
[2018-12-21] MEDS: KETOCONAZOLE 2% SHAMPOO 120 ML BTL TOP SCH ×2 (08:49→21:00)
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
--- NOTE | 2018-12-21 12:41 | CONS ---
Date/Time of Note Date/Time of Note DATE: 12/21/18 TIME: 12:32 Assessment/Plan Assessment/Plan Hospital Course ID PROGRESS NOTE CURRENT ABX: DAY # => Zyvox + GENT + Flagyl + Diflucan s/p + Merrem + Vanco IV s/p Zyvox s/p BACTRIM + Tobra INH s/p Zyvox #5 + Merrem #7 s/p Vanco IV + Cefepime 24H INTERVAL SUMMARY * Persistent intermittent fevers -- TMax 101.4 intermittent SIRS, sepsis ongoing due to PNA, Invasives, Decub * NONCOMPLIANCE === continues to refuse personal hygiene care, refuses tx for facial seborrheic dermatitis, refuses turning and wound care * B/P drops after he is given Ativan/Dilaudid per nurse * INDWELLINGS: Trach, PEG, right-sided PICC line, Patel catheter. * MICROBIOLOGY: * 12/19/18 BCx (-) * 12/02/18 BCx (-) * 12/05/18 SACRAL WOUND: WOUND CULTURE Final Organism 1 ACINETOBACTER BAUMANNII QUANTITY 1+ Organism 2 PROVIDENCIA STUARTII QUANTITY SCANT GROWTH Organism 3 PROTEUS MIRABILIS QUANTITY SCANT GROWTH Acinetobacter baumannii : MEROPENEM LIZ>=2 RESISTANT A.BAUMANNI P STUARTII P. MIRAB M.I.C. RX M.I.C. RX M.I.C. RX --------- --- --------- --- --------- --- AMIKACIN R 16 S <=2 S AMPICILLIN >=32 R CEFEPIME 32 R <=1 S 4 S CEFOTAXIME R R CEFTAZIDIME >=64 R CIPROFLOXACIN >=4 R 2 I >=4 R GENTAMICIN <=1 S >=16 R 8 I LEVOFLOXACIN >=8 R >=8 R >=8 R TOBRAMYCIN <=1 S >=16 R 2 S TRIMETHOPRIM/SULFAMETHOXAZOLE <=20 S >=320 R >=320 R * DIAGNOSTICS: * 11/06/18 CXR: 1. Consolidative infiltrates and/or atelectasis in the right left lower lobes.2. Small right pleural effusion.3. Satisfactory positioning of the PICC line catheter and tracheostomy tube. MICRO * 10/17/18 TRACH PATHOGENS RESPIRATORY CULTURE Final Organism 1 SERRATIA MARCESCENS QUANTITY 2+ Organism 2 ACHROMOBACTER SPECIES QUANTITY 1+ ACHROMOBACTER SPECIES: No definitve guidelines. Potentially active agents include mezlocillin, piperacillin, ticarcillin/clavulanic acid, ceftazidime, imipenem, trimethoprim/sulfamethoxazole, and quinolones. [facility] RX --------- --- CEFEPIME <=1 S CEFOTAXIME R CIPROFLOXACIN 2 I GENTAMICIN <=1 S IMIPENEM S LEVOFLOXACIN 4 I TOBRAMYCIN 2 S TRIMETHOPRIM/SULFAMETHOXAZOLE <=20 S PIPERACILLIN/TAZOBACTAM I * 10/16/18 sacral decub: WOUND CULTURE Final Organism 1 ESCHERICHIA COLI QUANTITY SCANT GROWTH Organism 2 K PNEUMO ESBL QUANTITY SCANT GROWTH . MULTI DRUG RESISTANT ORGANISM Organism 3 PSEUDOMONAS SPECIES QUANTITY RARE Organism 4 VANCO RESISTANT ENTEROCOCCUS QUANTITY SCANT GROWTH . MULTI DRUG RESISTANT ORGANISM PHYSICAL EXAMINATION: GENERAL: Afebrile, VSS, HEENT: AT, NC, anicteric = facial seborrheic dermatitis NECK: Supple, trach-> secure CHEST: Equal chest rise bilaterally, without dyspnea on observation HEART: Pulse RRR ABDOMEN: Soft / NT EXTREMITIES: Warm, dry, BLEXT atrophy + contracted with multiple pressure sores. SKIN: No rash, mutiple tattoos, decubs = see photos ID ASSESSMENT 28 yo M admit with: 1. SIRS w/Recurrent sepsis -- blood cx remain negative, patient with ongoing PNA, decubs 2. Chronic respiratory failure. 3. Aspiration HCAP = VAP * Retained secretions w/mucous plugging * Dysphagia w/peg 4. Hx of UTI -- indwelling FC 5. Multiple chronic wounds status post 8 weeks antibiotics for sacral osteomyelitis. 6. Worsening facial seborrheic dermatitis * Rx initiated 11/08/18 == >Ketoconazole Shampoo followed by Lotrisone topical. 7. Negative HIV=> HIV RNA by PCR on previous admission negative 8. NONCOMPLIANCE with medical treatment and nursing care interventions * -- continues to refuse personal hygiene care, refuses tx for facial seborrheic dermatitis, refuses turning and wound care 9. Psych issues NOS + Depression: On Seroquel (-)MRSA Nares ABX ALLERGIES: NKDA INVASIVES: PICC, Trach, Peg, FC CURRENT ABX: DAY # => Zyvox + GENT + Flagyl + Diflucan s/p + Merrem + Vanco IV s/p Zyvox s/p BACTRIM + Tobra INH s/p Zyvox #5 + Merrem #7 s/p Vanco IV + Cefepime ID RECOMMENDATIONS/PLAN: Continue current ABX Recommend providers to promote compliance with nursing staff . . Result Diagram: [id number]/20/1861412/[id number]/18614 Consultation Date/Type/Reason Admit Date/Time Sep 23, 2018 at 18:14 Initial Consult Date 09/25/18 Type of Consult ID Requesting Provider: MOISES CARLSON MD Exam/Review of Systems Vital Signs Vitals Vital Signs Date Temp Pulse Resp B/P (MAP) Pulse Ox O2 O2 Flow FiO2 Time Delivery Rate 12/21/18 72 14 100 30 11:46 12/21/18 101.4 113/86 11:43 (95) Intake and Output 12/20/18 12/20/18 12/21/18 1515:00 23:00 07:00 IntakeIntake Total 50 ml 350 ml 150 ml OutputOutput Total 1100 ml 800 ml BalanceBalance 50 ml -750 ml -650 ml Medications Medications Current Medications Metoprolol Tartrate (Lopressor) 5 mg Q4H PRN IV HR>110 Hold SBP<100; Start 10/30/18 at 13:30 Albuterol (Ventolin Hfa) 4 puff Q2H PRN INH SHORTNESS OF BREATH Last administered on 12/20/18at 21:24; Admin Dose 4 PUFF; Start 11/03/18 at 15:30 Ketoconazole (Nizoral Shampoo) 1 applic Q12 TOP Last administered on 12/20/18 09:06; Admin Dose 1 APPLIC; Start 11/08/18 at 12:00 Betamethasone/ Clotrimazole (Lotrisone Cr) 1 applic BID TOP Last administered on 12/20/18 09:06; Admin Dose 1 APPLIC; Start 11/08/18 at 21:00 Acetaminophen (Tylenol Liquid) 650 mg Q4H PRN GTB MILD PAIN(1-3)OR ELEVATED TEMP Last administered on 12/20/18at 23:11; Admin Dose 650 MG; Start 11/08/18 at 15:30 Ondansetron HCl (Zofran Inj) 4 mg Q6H PRN IV NAUSEA AND/OR VOMITING Last administered on 12/20/18 13:02; Admin Dose 4 MG; Start 11/09/18 at 06:30 Al Hydrox/Mg Hydrox/Simethicone (Mag-Al Plus) 30 ml Q6H PRN PO GASTROINTESTINAL UPSET Last administered on 12/12/18 14:02; Admin Dose 30 ML; Start 11/09/18 at 09:00 Lansoprazole (Prevacid) 30 mg DAILY@06 GTB Last administered on 12/21/18 06:39; Admin Dose 30 MG; Start 11/30/18 at 06:00 Linezolid (Zyvox) 600 mg BID PO Last administered on 12/21/18 08:37; Admin Dose 600 MG; Start 12/04/18 at 21:00 Collagenase (Santyl) 1 applic DAILY TOP Last administered on 12/19/18 09:26; Admin Dose 1 APPLIC; Start 12/06/18 at 09:00 Alteplase, Recombinant (Cathflo (Activase)) 2 mg MAY REPEAT X1 PRN CATHETER IF C ATHETER REMAINS OCCULUDED Last administered on 12/08/18 17:58; Admin Dose 2 MG; Start 12/05/18 at 23:30 Fentanyl (Duragesic 50 Mcg/Hr Patch) 1 patch Q48H TRANSDERM Last administered on 12/20/18 14:34; Admin Dose 1 PATCH; Start 12/08/18 at 10:00 Hydromorphone HCl (Dilaudid) 2 mg Q4H PRN PO SEVERE PAIN LEVEL 7-10 Last administered on 12/21/18 07:04; Admin Dose 2 MG; Start 12/08/18 at 09:00 Midodrine (Midodrine HCl) 30 mg Q8 PO Last administered on 12/21/18 06:39; Admin Dose 30 MG; Start 12/12/18 at 14:00 Quetiapine Fumarate (Seroquel) 50 mg BID GTB Last administered on 12/21/18 08:37; Admin Dose 50 MG; Start 12/12/18 at 21:00 Fluconazole (Diflucan) 100 mg DAILY PO Last administered on 12/21/18 08:37; Admin Dose 100 MG; Start 12/13/18 at 10:00 Gentamicin Sulfate (Gentamicin Iv Per Pharmacy) GENTAMICIN PER PHARMACY NOTE XX ; Start 12/13/18 at 10:00 Cefepime HCl 50 ml @ 100 mls/hr Q12 IVPB Last administered on 12/21/18at 08:37; Admin Dose 100 MLS/HR; Start 12/13/18 at 10:00 Metronidazole (Flagyl) 500 mg Q8 NGT Last administered on 12/21/18at 06:39; Admin Dose 500 MG; Start 12/13/18 at 14:00 Gentamicin Sulfate 350 mg/ Dextrose 108.75 ml @ 103.75 mls/hr Q48H IVPB Last administered on 12/19/18 13:03; Admin Dose 103.75 MLS/HR; Start 12/15/18 at 13:00 Hydromorphone HCl (Dilaudid) 1.5 mg Q4H PRN IV SEVERE PAIN LEVEL 7-10 Last administered on 12/21/18 09:25; Admin Dose 1.5 MG; Start 12/16/18 at 11:00 Enoxaparin Sodium (Lovenox) 40 mg DAILY SC Last administered on 12/21/18 08:48; Admin Dose 40 MG; Start 12/20/18 at 16:30 BENIGNO BHARDWAJ NP Dec 21, 2018 12:41
[2018-12-21] MEDS: ACETAMINOPHEN 650MG/20.3ML CUP GTB PRN ×2 (13:26→17:28)
[2018-12-21] MEDS: GENTAMICIN 350 MG in DEXTROSE 5% 100 ML IVPB SCH (13:26)
[2018-12-22] VITALS (22 sets, daily range): BP systolic 85–126; BP diastolic 70–93; PULSE 65–102; RESP 14–21
[2018-12-22] MEDS: MIDODRINE HCL 10 MG TABLET PO SCH ×4 (00:26→21:42)
[2018-12-22] MEDS: HYDROmorphONE 2 MG/ML SYG IV PRN ×6 (01:35→22:21)
[2018-12-22] MEDS: metroNIDAZOLE 500 MG TAB NGT SCH ×3 (05:40→21:41)
[2018-12-22] MEDS: LANSOPRAZOLE 30 MG CAP GTB SCH (05:40)
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
[2018-12-22] MEDS: BETAMETHASONE/CLOTRIMAZOLE 15 GM CR TOP SCH ×2 (09:00→21:00)
[2018-12-22] MEDS: COLLAGENASE 5 GM (UD JAR) TOP SCH (09:00)
[2018-12-22] MEDS: KETOCONAZOLE 2% SHAMPOO 120 ML BTL TOP SCH ×2 (09:00→21:00)
[2018-12-22] MEDS: ALBUTEROL HFA 8 GM INHALER INH PRN ×2 (09:29→13:28)
[2018-12-22] MEDS: FLUCONAZOLE 100 MG TAB PO SCH (09:44)
[2018-12-22] MEDS: ZYVOX 600 MG TAB PO SCH ×2 (09:45→21:42)
[2018-12-22] MEDS: QUETIAPINE 25 MG TAB GTB SCH ×2 (09:45→21:41)
[2018-12-22] MEDS: CEFEPIME 1GM/50 ML (PMX) 50 ML IVPB SCH ×2 (09:46→21:42)
[2018-12-22] MEDS: ENOXAPARIN 40 MG/0.4 ML SYG SC SCH (10:02)
[2018-12-22] MEDS: FENTAnyl PATCH 50 MCG/HR TRANSDERM SCH (10:54)
--- NOTE | 2018-12-22 12:13 | CONS ---
Date/Time of Note Date/Time of Note DATE: 12/22/18 TIME: 12:11 Assessment/Plan Assessment/Plan Hospital Course ID PROGRESS NOTE CURRENT ABX: DAY # => Zyvox + GENT + Flagyl + Diflucan s/p + Merrem + Vanco IV s/p Zyvox s/p BACTRIM + Tobra INH s/p Zyvox #5 + Merrem #7 s/p Vanco IV + Cefepime 24H INTERVAL SUMMARY * Chronically ill -- no new issues -- Afebrile today -- awake & responsive * Hx of persistent intermittent fevers -- intermittent SIRS, sepsis ongoing due to PNA, Invasives, Decub * NONCOMPLIANCE === continues to refuse personal hygiene care, refuses tx for facial seborrheic dermatitis, refuses turning and wound care * B/P drops after he is given Ativan/Dilaudid per nurse * INDWELLINGS: Trach, PEG, right-sided PICC line, Patel catheter. * MICROBIOLOGY: * 12/19/18 BCx (-) * 12/02/18 BCx (-) * 12/05/18 SACRAL WOUND: WOUND CULTURE Final Organism 1 ACINETOBACTER BAUMANNII QUANTITY 1+ Organism 2 PROVIDENCIA STUARTII QUANTITY SCANT GROWTH Organism 3 PROTEUS MIRABILIS QUANTITY SCANT GROWTH Acinetobacter baumannii : MEROPENEM LIZ>=2 RESISTANT A.BAUMANNI P STUARTII P. MIRAB M.I.C. RX M.I.C. RX M.I.C. RX --------- --- --------- --- --------- --- AMIKACIN R 16 S <=2 S AMPICILLIN >=32 R CEFEPIME 32 R <=1 S 4 S CEFOTAXIME R R CEFTAZIDIME >=64 R CIPROFLOXACIN >=4 R 2 I >=4 R GENTAMICIN <=1 S >=16 R 8 I LEVOFLOXACIN >=8 R >=8 R >=8 R TOBRAMYCIN <=1 S >=16 R 2 S TRIMETHOPRIM/SULFAMETHOXAZOLE <=20 S >=320 R >=320 R * DIAGNOSTICS: * 11/06/18 CXR: 1. Consolidative infiltrates and/or atelectasis in the right left lower lobes.2. Small right pleural effusion.3. Satisfactory positioning of the PICC line catheter and tracheostomy tube. MICRO * 10/17/18 [facility] PATHOGENS RESPIRATORY CULTURE Final Organism 1 SERRATIA MARCESCENS QUANTITY 2+ Organism 2 ACHROMOBACTER SPECIES QUANTITY 1+ ACHROMOBACTER SPECIES: No definitve guidelines. Potentially active agents include mezlocillin, piperacillin, ticarcillin/clavulanic acid, ceftazidime, imipenem, trimethoprim/sulfamethoxazole, and quinolones. [facility].I[facility]. RX --------- --- CEFEPIME <=1 S CEFOTAXIME R CIPROFLOXACIN 2 I GENTAMICIN <=1 S IMIPENEM S LEVOFLOXACIN 4 I TOBRAMYCIN 2 S TRIMETHOPRIM/SULFAMETHOXAZOLE <=20 S PIPERACILLIN/TAZOBACTAM I * 10/16/18 sacral decub: WOUND CULTURE Final Organism 1 ESCHERICHIA COLI QUANTITY SCANT GROWTH Organism 2 K PNEUMO ESBL QUANTITY SCANT GROWTH . MULTI DRUG RESISTANT ORGANISM Organism 3 PSEUDOMONAS SPECIES QUANTITY RARE Organism 4 VANCO RESISTANT ENTEROCOCCUS QUANTITY SCANT GROWTH . MULTI DRUG RESISTANT ORGANISM PHYSICAL EXAMINATION: GENERAL: Afebrile, VSS, HEENT: AT, NC, anicteric = facial seborrheic dermatitis NECK: Supple, trach-> secure CHEST: Equal chest rise bilaterally, without dyspnea on observation HEART: Pulse RRR ABDOMEN: Soft / NT EXTREMITIES: Warm, dry, BLEXT atrophy + contracted with multiple pressure sores. SKIN: No rash, mutiple tattoos, decubs = see photos ID ASSESSMENT 28 yo M admit with: 1. SIRS w/Recurrent sepsis -- blood cx remain negative, patient with ongoing PNA, decubs 2. Chronic respiratory failure. 3. Aspiration HCAP = VAP * Retained secretions w/mucous plugging * Dysphagia w/peg 4. Hx of UTI -- indwelling FC 5. Multiple chronic wounds status post 8 weeks antibiotics for sacral osteomyelitis. 6. Worsening facial seborrheic dermatitis * Rx initiated 11/08/18 == >Ketoconazole Shampoo followed by Lotrisone topical. 7. Negative HIV=> HIV RNA by PCR on previous admission negative 8. NONCOMPLIANCE with medical treatment and nursing care interventions * -- continues to refuse personal hygiene care, refuses tx for facial seborrheic dermatitis, refuses turning and wound care 9. Psych issues NOS + Depression: On Seroquel (-)MRSA Nares ABX ALLERGIES: NKDA INVASIVES: PICC, Trach, Peg, FC CURRENT ABX: DAY # => Zyvox + GENT + Flagyl + Diflucan s/p + Merrem + Vanco IV s/p Zyvox s/p BACTRIM + Tobra INH s/p Zyvox #5 + Merrem #7 s/p Vanco IV + Cefepime ID RECOMMENDATIONS/PLAN: Continue current ABX Recommend providers to promote compliance with nursing staff . . Result Diagram: 12/22/18 0621 12/22/18 0621 Results 24hrs Laboratory Tests Test 12/21/18 12:13 12/22/18 06:21 Gentamicin Level Trough < 0.6 L White Blood Count 9.6 Red Blood Count 3.61 L Hemoglobin 11.1 L Hematocrit 32.4 L Mean Corpuscular Volume 89.8 Mean Corpuscular Hemoglobin 30.7 Mean Corpuscular Hemoglobin Concent 34.3 Red Cell Distribution Width 13.9 Platelet Count 375 Mean Platelet Volume 8.7 Immature Granulocytes % 0.300 Neutrophils % 61.4 Lymphocytes % 27.1 Monocytes % 8.9 Eosinophils % 0.6 Basophils % 1.7 Nucleated Red Blood Cells % 0.0 Immature Granulocytes # 0.030 Neutrophils # 5.9 Lymphocytes # 2.6 Monocytes # 0.9 Eosinophils # 0.1 Basophils # 0.2 H Nucleated Red Blood Cells # 0.0 Sodium Level 131 L Potassium Level 3.9 Chloride Level 93 L Carbon Dioxide Level 20 L Anion Gap 18 H Blood Urea Nitrogen 24 H Creatinine 0.49 L Est Glomerular Filtrat Rate mL/min > 60 Glucose Level 87 Calcium Level 12.2 H Consultation Date/Type/Reason Admit Date/Time Sep 23, 2018 at 18:14 Initial Consult Date 09/25/18 Type of Consult ID Requesting Provider: MOISES CARLSON MD Exam/Review of Systems Vital Signs Vitals Vital Signs Date Temp Pulse Resp B/P (MAP) Pulse Ox O2 O2 Flow FiO2 Time Delivery Rate 12/22/18 98.3 91 16 85/70 (75) 100 11:47 12/22/18 30 11:10 Intake and Output 12/21/18 12/21/18 12/22/18 1515:00 23:00 07:00 IntakeIntake Total 100 ml OutputOutput Total 700 ml BalanceBalance -600 ml Medications Medications Current Medications Metoprolol Tartrate (Lopressor) 5 mg Q4H PRN IV HR>110 Hold SBP<100; Start 10/30/18 at 13:30 Albuterol (Ventolin Hfa) 4 puff Q2H PRN INH SHORTNESS OF BREATH Last administered on 12/22/18 09:29; Admin Dose 4 PUFF; Start 11/03/18 at 15:30 Ketoconazole (Nizoral Shampoo) 1 applic Q12 TOP Last administered on 12/20/18 09:06; Admin Dose 1 APPLIC; Start 11/08/18 at 12:00 Betamethasone/ Clotrimazole (Lotrisone Cr) 1 applic BID TOP Last administered on 12/20/18 09:06; Admin Dose 1 APPLIC; Start 11/08/18 at 21:00 Acetaminophen (Tylenol Liquid) 650 mg Q4H PRN GTB MILD PAIN(1-3)OR ELEVATED TEMP Last administered on 12/21/18 17:28; Admin Dose 650 MG; Start 11/08/18 at 15:30 Ondansetron HCl (Zofran Inj) 4 mg Q6H PRN IV NAUSEA AND/OR VOMITING Last administered on 12/20/18 13:02; Admin Dose 4 MG; Start 11/09/18 at 06:30 Al Hydrox/Mg Hydrox/Simethicone (Mag-Al Plus) 30 ml Q6H PRN PO GASTROINTESTINAL UPSET Last administered on 12/12/18 14:02; Admin Dose 30 ML; Start 11/09/18 at 09:00 Lansoprazole (Prevacid) 30 mg DAILY@06 GTB Last administered on 12/22/18 05:40; Admin Dose 30 MG; Start 11/30/18 at 06:00 Linezolid (Zyvox) 600 mg BID PO Last administered on 12/22/18 09:45; Admin Dose 600 MG; Start 12/04/18 at 21:00 Collagenase (Santyl) 1 applic DAILY TOP Last administered on 12/19/18 09:26; Admin Dose 1 APPLIC; Start 12/06/18 at 09:00 Alteplase, Recombinant (Cathflo (Activase)) 2 mg MAY REPEAT X1 PRN CATHETER IF CATHETER REMAINS OCCULUDED Last administered on 12/08/18 17:58; Admin Dose 2 MG; Start 12/05/18 at 23:30 Fentanyl (Duragesic 50 Mcg/Hr Patch) 1 patch Q48H TRANSDERM Last administered on 12/22/18 10:54; Admin Dose 1 PATCH; Start 12/08/18 at 10:00 Hydromorphone HCl (Dilaudid) 2 mg Q4H PRN PO SEVERE PAIN LEVEL 7-10 Last administered on 12/21/18 07:04; Admin Dose 2 MG; Start 12/08/18 at 09:00 Midodrine (Midodrine HCl) 30 mg Q8 PO Last administered on 12/22/18 05:41; Admin Dose 30 MG; Start 12/12/18 at 14:00 Quetiapine Fumarate (Seroquel) 50 mg BID GTB Last administered on 12/22/18 09:45; Admin Dose 50 MG; Start 12/12/18 at 21:00 Fluconazole (Diflucan) 100 mg DAILY PO Last administered on 12/22/18 09:44; Admin Dose 100 MG; Start 12/13/18 at 10:00 Gentamicin Sulfate (Gentamicin Iv Per Pharmacy) GENTAMICIN PER PHARMACY NOTE XX ; Start 12/13/18 at 10:00 Cefepime HCl 50 ml @ 100 mls/hr Q12 IVPB Last administered on 12/22/18 09:46; Admin Dose 100 MLS/HR; Start 12/13/18 at 10:00 Metronidazole (Flagyl) 500 mg Q8 NGT Last administered on 12/22/18 05:40; A dmin Dose 500 MG; Start 12/13/18 at 14:00 Gentamicin Sulfate 350 mg/ Dextrose 108.75 ml @ 103.75 mls/hr Q48H IVPB Last administered on 12/21/18 13:26; Admin Dose 103.75 MLS/HR; Start 12/15/18 at 13 :00 Hydromorphone HCl (Dilaudid) 1.5 mg Q4H PRN IV SEVERE PAIN LEVEL 7-10 Last administered on 12/22/18 09:46; Admin Dose 1.5 MG; Start 12/16/18 at 11:00 Enoxaparin Sodium (Lovenox) 40 mg DAILY SC Last administered on 12/22/18 10:02; Admin Dose 40 MG; Start 12/20/18 at 16:30 BENIGNO BHARDWAJ NP Dec 22, 2018 12:13
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
[2018-12-23] VITALS (15 sets, daily range): BP systolic 94–122; BP diastolic 75–92; PULSE 61–102; RESP 14–22
[2018-12-23] MEDS: HYDROmorphONE 2 MG/ML SYG IV PRN ×4 (01:57→13:34)
[2018-12-23] MEDS: metroNIDAZOLE 500 MG TAB NGT SCH ×2 (06:12→16:41)
[2018-12-23] MEDS: MIDODRINE HCL 10 MG TABLET PO SCH ×2 (06:12→16:41)
[2018-12-23] MEDS: LANSOPRAZOLE 30 MG CAP GTB SCH (06:12)
[2018-12-23] MEDS: QUETIAPINE 25 MG TAB GTB SCH (10:08)
[2018-12-23] MEDS: CEFEPIME 1GM/50 ML (PMX) 50 ML IVPB SCH (10:08)
[2018-12-23] MEDS: ZYVOX 600 MG TAB PO SCH (10:08)
[2018-12-23] MEDS: FLUCONAZOLE 100 MG TAB PO SCH (10:08)
[2018-12-23] MEDS: ENOXAPARIN 40 MG/0.4 ML SYG SC SCH (10:21)
[2018-12-23] MEDS: ALBUTEROL HFA 8 GM INHALER INH PRN (10:48)
[2018-12-23] MEDS: HYDROmorphONE 2 MG TAB PO PRN (12:29)
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
== END 2018-12-23 16:52 | DRG 207 ==
LOC: E/R 12:16 → 6WM 18:14 → CANRESERV 18:30 → EDBEDREQ 19:14 → ICU 11-02 16:58 → TEL 11-08 18:48
PROVIDERS: ADMIT Internal Medicine; ATTEND Internal Medicine
PROC: 5A1955Z Respiratory Ventilation, Greater than 96 Consecutive Hours (ICD-10-PCS; principal; 2018-09-23)
PROC: 30233N1 Transfusion of Nonautologous Red Blood Cells into Peripheral Vein, Percutaneous Approach (ICD-10-PCS; 2018-09-30)
DX: J18.9 Pneumonia, unspecified organism (principal); L89.154 Pressure ulcer of sacral region, stage 4; G82.50 Quadriplegia, unspecified; E43 Unspecified severe protein-calorie malnutrition; A41.9 Sepsis, unspecified organism; R65.21 Severe sepsis with septic shock; N39.0 Urinary tract infection, site not specified; J96.10 Chronic respiratory failure, unspecified whether with hypoxia or hypercapnia; Z99.11 Dependence on respirator [ventilator] status; D64.9 Anemia, unspecified; F41.9 Anxiety disorder, unspecified; F32.9 Major depressive disorder, single episode, unspecified; G40.909 Epilepsy, unspecified, not intractable, without status epilepticus; R13.10 Dysphagia, unspecified; Z93.1 Gastrostomy status; Z53.29 Procedure and treatment not carried out because of patient's decision for other reasons; Z91.19 Patient's noncompliance with other medical treatment and regimen; Z93.0 Tracheostomy status; Z87.891 Personal history of nicotine dependence
CPT/HCPCS: 36430; 71045; 71275; 80048; 80053; 80061; 80170; 80202; 81001; 82565; 82962; 83605; 83735; 84132; 84145; 84439; 84443; 84484; 84520; 85025; 85610; 85730; 86360; 86850; 86900; 86901; 86920; 87040; 87070; 87081; 87086; 89220; 92526; 92610; 93005; 93306; 94002; 94003; 94640; 94664; 96374; 96375; J0692; J1170; J1580; J1650; J1885; J1956; J2060; J2185; J2405; J2543; J2997; J3370; J3475; J3480; J7030; J7040; J7042; J7050; J7060; P9016; P9045